=== PATIENT | female | born 1950 | race Caucasian/White ===

== ENCOUNTER 2023-05-13 15:18 | Outpatient (OUT) | payer MEDICARE, SELFPAY ==
[2023-05-13 09:12] LABS: Erythrocyte Sedimentation Rate 38 mm/hr (<=30)
== END 2023-05-13 15:19 | disposition home or self-care (01) ==
LOC: LAB 05-23 15:18
PROVIDERS: PCP Internal Medicine; Visit Provider Internal Medicine Rheumatology
DX: M05.79 Rheumatoid arthritis with rheumatoid factor of multiple sites without organ or systems involvement (principal); Z79.899 Other long term (current) drug therapy
CPT/HCPCS: 36415; 85652

== ENCOUNTER 2023-09-19 12:37 | Outpatient (OUT) | payer MEDICARE, OTHER, SELFPAY ==
[2023-09-19 13:04] LABS: Erythrocyte Sedimentation Rate 21 mm/hr (<=30)
== END 2023-09-19 12:38 | disposition home or self-care (01) ==
LOC: LAB 12:42
PROVIDERS: PCP Internal Medicine; Visit Provider Internal Medicine Rheumatology
DX: M05.79 Rheumatoid arthritis with rheumatoid factor of multiple sites without organ or systems involvement (principal); Z79.899 Other long term (current) drug therapy
CPT/HCPCS: 36415; 85652

== ENCOUNTER 2023-12-01 08:42 | Outpatient (OUT) | payer MEDICARE, OTHER, SELFPAY ==
--- OUTSIDE RECORDS SUMMARY | 2023-12-01 08:46 | XMS_ITS | CCD ---
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 Name Role Phone Juno Mcfadden II Primary Care Provider Mark TINAJERO, PhD, Guero Unavailable Patito JACINTO, Radha Unavailable Unavailable Dejuan Hernandez Unavailable ORALIA, DR MOTA Admitting Unavailable BARTON, DR MOTA Attending Unavailable MCFADDEN, DR NICHOLSON Primary Care Unavailable MISC, DR BONNER Consulting Unavailable KARASIK ., DR JONES Admitting Unavailabl e KARASIK ., DR JONES Attending Unavailabl e MCFADDEN, DR NICHOLSON Primary Care Unavailable KARASIK ., DR JONES Consulting Unavailabl e BARTON, DR MOTA Admitting Unavailable BARTON, DR MOTA Attending Unavailable MCFADDEN, DR NICHOLSON Primary Care Unavailable MISC, DR BONNER Consulting Unavailable BOGDAN, DR NICHOLSON Admitting Unavailable BOGDAN, DR NICHOLSON Attending Unavailable BOGDAN, DR NICHOLSON Primary Care Unavailable BOGDAN, DR NICHOLSON Consulting Unavailable KARASIK ., DR JONES Consulting Unavailabl e ZIEBMAGAN, DR KINGA Olivera Consulting Unavailable KARASIK ., DR JONES Admitting Unavailabl e KARASIK ., DR JONES Attending Unavailabl e BOGDAN, DR NICHOLSON Primary Care Unavailable KARASIK ., DR JONES Consulting Unavailabl e MISC, DR BONNER Admitting Unavailable MISC, DR BONNER Attending Unavailable BOGDAN, DR NICHOLSON Primary Care Unavailable MISC, DR BONNER Consulting Unavailable Juno Mcfadden II Primary Care Provider [phone] Mark TINAJERO, PhD, Guero Unavailable Patito JACINTO, Radha Unavailable Unavailable Bogdan ADAMS MD, Daniel B Primary Care Provider Franco TINAJERO, Lidia Unavailable Violet JACINTO, Jessica Unavailable MCFADDEN II, JUNO B Primary Care Unavailable GUERO FLORES Attending Unavailabl e MCFADDEN II, JUNO Martinez Primary Care Unavailable GUERO FLORES Referring Unavailabl e MCFADDEN II, JUNO Martinez Primary Care Unavailable MCFADDEN II, JUNO B Primary Care Unavailable GUERO FLORES Referring Unavailabl e MCFADDEN II, JUNO B Primary Care Unavailable MCFADDEN II, JUNO B Primary Care Unavailable GUERO FLORES Attending Unavailabl e MCFADDEN II, JUNO Martinez Primary Care Unavailable MCFADDEN II, JUNO Martinez Primary Care Unavailable MCFADDEN II, JUNO B Primary Care Unavailable MCFADDEN II, JUNO B Primary Care Unavailable MCFADDEN II, JUNO B Primary Care Unavailable Allergies Allergy Classification Reported Allergen(s) Allergy Type Date of Onset Reaction(s) Facility (9 sources) sulfaSALAzine; Translations: [SULFASALAZINE] Drug Allergy 06-29-2022 Rash [facility] (8 sources) Sulfonamides (Antibiotic); Translations: [SULFA (SULFONAMIDE ANTIBIOTICS)] Drug Allergy 08-17-2017 Unknown [facility] (1 source) Sulfonamides (Antibiotic) Drug allergy (disorder) [facility] Repository Medications Current Medications Medication Drug Class(es) Dates Sig (Normalized) Sig (Original) Calcium + D3 600-800 MG-UNIT (1 source) take 600-800 tablets by mouth once daily Calcium + D3 600-800 MG-UNIT 1 tablet with a meal Orally Once a day Active cycloSPORINE 25 mg oral capsule (20 sources) Calcineurin Inhibitor Immunosuppressant Start: 11-17-2022 End: 06-02-2024 take 1 capsule by mouth once daily cycloSPORINE (SANDIMMUNE) 25 mg capsule Take 1 capsule by mouth once daily. 90 capsule 2 09/06/2023 06/02/2024 Active Start: 11-17-2022 End: 06-06-2023 take 1 capsule by mouth twice daily in the evening cycloSPORINE (SANDIMMUNE) 100 mg capsule Take 1 capsule by mouth twice daily. 100 mg in the morning and 125 mg in the evening 180 capsule 5 03/08/2023 Active Start: 12-29-2021 End: 07-04-2022 take 1 capsule by mouth once daily cycloSPORINE (SANDIMMUNE) 25 mg capsule Indications: Large granular lymphocytic leukemia (HCC) Take 1 capsule by mouth once daily. Patient total dose is 125 mg daily. 90 capsule 2 07/04/2022 Active Start: 12-29-2021 End: 07-04-2022 take 1 capsule by mouth once daily cycloSPORINE (SANDIMMUNE) 100 mg capsule Indications: Large granular lymphocytic leukemia (HCC) Take 1 capsule by mouth once daily. Patient total dose is 125 mg daily. 90 capsule 2 07/04/2022 Active cycloSPORINE Act chip Comment on above: Take 1 capsule by mo ut once daily. Patient total dose is 125 mg daily. Take 1 capsule by mo ut twice daily. 100 mg in the morning and 125 mg in the evening Take 1 capsule by mo [facility] once daily. Magnesium (1 source) take 2 tablets by mouth once daily Magnesium 200 MG 2 tablets with a meal Orally Once a day Active Completed/Discontinued Medications Medication Drug Class(es) Dates Sig (Normalized) Sig (Original) acetaminophen 500 mg oral tablet (8 sources) take 1 tablet by mouth every eight hours as needed acetaminophen (TYLENOL) 500 mg tablet Take 500 mg by mouth three times daily as needed. 2-3 TABLETS PO DAILY NEEDED FOR PAIN 0 Active take 1 capsule by mouth every si x hours Acetaminophen 500 MG 1 capsule as needed Orally every 6 hrs Active Comment on above: Take 500 mg by mouth three times daily as needed. 2-3 TABLETS PO DAILY NEEDED FOR PAIN amLODIPine 2.5 mg oral tablet (2 sources) Dihydropyridine Calcium Channel Prosper Start: 12-19-19 take 1 tablet by mouth once daily amLODIPine (NORVASC) 2.5 mg tablet Take 2.5 mg by mouth once daily. 0 12/19/2022 Active Comment on above: Take 2.5 mg by mouth once daily. aspirin 81 mg delayed release oral tablet (8 sources) Platelet Aggregation Inhibitor, Nonsteroidal Anti-inflammatory Drug take 1 tablet by mouth once daily aspirin, enteric coated (ASPIRIN, ENTERIC COATED) 81 mg EC tablet Take 81 mg by mouth once daily. 0 Active Comment on above: Take 81 mg by mouth once daily. Calcium Carbonate / vitamin D3 (7 sources) CALCIUM CARBONATE/VITAMIN D3 (CALCIUM 600 + D ORAL) Take by mouth. 0 Active Comment on above: Take by mouth. ciprofloxacin 500 mg oral tablet (5 sources) Quinolone Antimicrobial Start: 10-27-20 End: 04-13-20 23 take 1 tablet by mouth three times weekly ciprofloxacin HCl (CIPRO) 500 mg tablet Take 1 tablet by mouth three times a week. Take Monday, Monday, and Monday 12 tablet 5 10/27/2022 Active Start: 11-15-2017 End: 10-27-2023 take 1 tablet by mouth twice daily ciprofloxacin HCl (CIPRO) 500 mg tablet Take 1 tablet by mouth twice daily. 60 tablet 0 11/15/2017 10/27/2023 Active take 1 tablet by mouth once Cipr ofloxacin HCl 500 MG 1 tablet Orally every Monday, Monday, and Monday Active Comment on above: Take 1 tablet by richard th twice daily. Take 1 tablet by richard th three times a week. Take Monday, Monday, and Monday COMPOUNDED PRESCRIPTION (7 sources) COMPOUNDED PRESCRIPTION Dmso 25% Colchicine 0.4% Baclofen 2% Pyroxidine 2% Apply to affected are 2-3 times daily as needed for pain 0 Active Comment on above: Dmso 25% Colchicine 0.4% Baclofen 2% Pyroxidine 2% Apply to affected are 2-3 times daily as needed for pain fluticasone propionate 0.05 mg/actuat metered dose nasal spray (8 sources) Corticosteroid take 2 spray(s) nasal route once daily fluticasone (FLONASE) 50 mcg/actuation nasal spray Use 2 Sprays in each nostril once daily. 0 Active take 1 spray(s) nasal route once daily Fluticasone Propionate 50 MCG/ACT 1 spray in each nostril Nasally Once a day Active Comment on above: Use 2 Sprays in each nostril once daily. hydroxychloroquine sulfate 200 mg oral tablet (8 sources) Antimalarial, Antirheumatic Agent take 1 tablet by mouth once daily hydrOXYchloroQUINE (PLAQUENIL) 200 mg tablet Take 200 mg by mouth once daily. 0 Active Comment on above: Take 200 mg by mouth once daily. levothyroxine sodium 0.075 mg oral tablet (8 sources) l-Thyroxine take 1 tablet by mouth once daily before breakfast levothyroxine (SYNTHROID) 75 mcg tablet Take 75 mcg by mouth daily before breakfast. 0 Active take 1 tablet by richard th once daily in the morning Levothyroxine Sodium 75 MCG 1 tablet in the morning on an empty stomach Orally Once a day Active Comment on above: Take 75 mcg by mouth daily before breakfast. liothyronine sodium 0.005 mg oral tablet (8 sources) l-Triiodothyronine take 1 tablet by mouth twice daily liothyronine (CYTOMEL) 5 mcg tablet Take 5 mcg by mouth twice daily. 0 Active take 1 tablet by richard th every twenty-four hours Liothyronine Sodium 5 MCG 1 tablet on an empty stomach Orally Once a day Active Comment on above: Take 5 mcg by mouth twice daily. loratadine 10 mg oral tablet (8 sources) take 1 tablet by mouth once daily loratadine (CLARITIN) 10 mg tablet Take 10 mg by mouth once daily. 0 Active Comment on above: Take 10 mg by mouth once daily. magnesium oxide 400 mg oral tablet (7 sources) take 1 tablet by mouth once daily magnesium oxide 400 mg magnesium tab Take 1 tablet by mouth once daily. 0 Active Comment on above: Take 1 tablet by richard th once daily. montelukast 10 mg oral tablet (8 sources) Leukotriene Receptor Antagonist take 1 tablet by mouth once daily at bedtime montelukast (SINGULAIR) 10 mg tablet Take 10 mg by mouth daily at bedtime. 0 Active Comment on above: Take 10 mg by mouth daily at bedtime. omeprazole 20 mg delayed release oral capsule (8 sources) Proton Pump Inhibitor take 1 capsule by mouth once daily omeprazole (PRILOSEC) 20 mg capsule Take 20 mg by mouth once daily. 0 Active take 1 capsule by mouth once bryon ly Omeprazole 40 MG 1 capsule 30 minutes before morning meal Orally Once a day Active Comment on above: Take 20 mg by mouth once daily. predniSONE 10 mg oral tablet (7 sources) Start: 02-27-2019 take 1 tablet by mouth once daily predniSONE (DELTASONE) 10 mg tablet Take 1 tablet by mouth once daily. 30 tablet 1 02/27/2019 Active Comment on above: Take 1 tablet by richard th once daily. propranolol hydrochloride 40 mg oral tablet (7 sources) beta-Adrenergic Prosper take 1 tablet by mouth twice daily propranolol (INDERAL) 40 mg tablet Take 40 mg by mouth twice daily. 0 Active Comment on above: Take 40 mg by mouth twice daily. Problems Active Problems Problem Classification Problem Date Documented Da te Episodic/Chronic Coagulation and hemorrhagic disorders (2 sources) Thrombocytopenic disorder; Translations: [Thrombocytopenia, unspecified] Onset: 3 09-12-2023 Chronic Diseases of white blood cells (9 sources) Neutropenia; Translations: [Neutropenia, unspecified] Onset: 7 10-03-2017 Chronic Immunizations and screening for infectious disease (1 source) Encounter for screening for human papillomavirus (HPV); Translations: [ENC SCREENING HUMAN PAPILLOMAVIRUS] Onset: 3 Episodic Leukemias (6 sources) Large granular lymphocytic leukemia; 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] Onset: 3 Chronic Menopausal disorders (1 source) Other primary ovarian failure; Translations: [OTHER PRIMARY OVARIAN FAILURE] Onset: 2 Chronic Other aftercare (1 source) Other intermission coordinator (current) drug therapy; Translations: [OTH INTERMEDIATE CURRENT DRUG THERAPY] Onset: 3 Episodic Other gastrointestinal disorders (1 source) Diarrhea, unspecified Episodic Other screening for suspected conditions (not mental disorders or infectious disease) (8 sources) Encounter for screening for malignant neoplasm of cervix; Translations: [Encounter for screening mammogram for malignant neoplasm of breast] Onset: 2 Episodic Residual codes; unclassified (1 source) Family history of malignant neoplasm of breast; Translations: [FAMILY HX MALIG NEOPLASM OF BREAST] Onset: 2 Episodic Residual codes; unclassified (1 source) Family history of malignant neoplasm of trachea, bronchus and lung; Translations: [FAM HX MALIG NEOPLSM TRACH BRON LNG] Onset: 2 Episodic Rheumatoid arthritis and related disease (4 sources) Rheumatoid arthritis with rheumatoid factor of multiple sites without organ or systems involvement; Translations: [RA W/RH FACTOR MX SITE NO ORGAN/SYS] Onset: 3 Chronic Viral infection (1 source) Herpesviral infection of urogenital system, unspecified; Translations: [HERPESVIRAL INF UROGENITAL SYS UNS] Onset: 2 Chronic Past or Other Problems Problem Classification Problem Date Documented Date Episodic/Chronic Other female genital disorders (4 sources) Other specified noninflammatory disorders of vagina; Translations: [OTH SPEC NONINFLAMMATORY D/O VAGINA] Onset: 07-27-2022 Episodic Results Test Name Value Interpretation Reference Range Facility CNPNon 11-29-2023 [facility] Telephone (HEMAMN) STEFAN LOYD ([id number]) 1950 F Date Time Provider Department 11/29/23 GUERO FLORES DAPHNE During your visit today, we recorded the following information about you: Maryjanejese Eamon Melendez 11/29/2023 10:33 AM Signed Patient needs orders put in for monthly lab draws. She goes to the [facility] in [place]. Jessica Lazo RN 11/30/2023 11:54 AM Signed Orders for monthly labs placed and routed to MD for signature. Jessica Lazo RN November 30, 2023 11:53 AM Allergies As of Date: 11/29/2023 Noted Allergy Reaction SULFA (SULFONAMIDE ANTIBIOTICS) 08/17/2017 16 - Unknown SULFASALAZINE 06/29/2022 2 - Rash Date Reviewed: 09/06/2023 Reviewed by: Yovany Haines, KARTIK - Fully Assessed Reason for Visit: Orders [681] Prescriptions as of 11/30/2023 - cycloSPORINE (SANDIMMUNE) 25 mg capsule Take 1 capsule by mouth once daily. - amLODIPine (NORVASC) 2.5 mg tablet Take 2.5 mg by mouth once daily. - cycloSPORINE (SANDIMMUNE) 100 mg capsule Take 1 capsule by mouth twice daily. 100 mg in the morning and 125 mg in the evening - ciprofloxacin HCl (CIPRO) 500 mg tablet Take 1 tablet by mouth three times a week. Take Monday, Monday, and Monday - hydrOXYchloroQUINE (PLAQUENIL) 200 mg tablet Take 200 mg by mouth once daily. - predniSONE (DELTASONE) 10 mg tablet Take 1 tablet by mouth once daily. - acetaminophen (TYLENOL) 500 mg tablet Take 500 mg by mouth three times daily as needed. 2-3 TABLETS PO DAILY NEEDED FOR PAIN - magnesium oxide 400 mg magnesium tab Take 1 tablet by mouth once daily. - COMPOUNDED PRESCRIPTION Dmso 25% Colchicine 0.4% Baclofen 2% Pyroxidine 2% Apply to affected are 2-3 times daily as needed for pain - ciprofloxacin HCl (CIPRO) 500 mg tablet Take 1 tablet by mouth twice daily. - omeprazole (PRILOSEC) 20 mg capsule Take 20 mg by mouth once daily. - propranolol (INDERAL) 40 mg tablet Take 40 mg by mouth twice daily. - levothyroxine (SYNTHROID) 75 mcg tablet Take 75 mcg by mouth daily before breakfast. - loratadine (CLARITIN) 10 mg tablet Take 10 mg by mouth once daily. - CALCIUM CARBONATE/VITAMIN D3 (CALCIUM 600 + D ORAL) Take by mouth. - fluticasone (FLONASE) 50 mcg/actuation nasal spray Use 2 Sprays in each nostril once daily. - liothyronine (CYTOMEL) 5 mcg tablet Take 5 mcg by mouth twice daily. - aspirin, enteric coated (ASPIRIN, ENTERIC COATED) 81 mg EC tablet Take 81 mg by mouth once daily. - montelukast (SINGULAIR) 10 mg tablet Take 10 mg by mouth daily at bedtime. Problem List As Of Date 11/29/2023 Noted Resolved Neutropenia (HCC) [D70.9] 10/03/2017 Thrombocytopenia (HCC) [D69.6] 09/12/2023 Encounter Status:Closed by EAMON WOOD on 11/29/23 Normal [facility] CBC W Auto Differential pane l (Bld)on 11-08-2023 Basophils (Bld) [#/Vol] 10*3/uL Normal <0.11 [facility] Comment on above: Order Comment: Speci men Type: BLOOD SPECIMEN Ordering Facility: [facility] Address: [address] [address] Performed By: #### 2 4323-8, 86466-7 #### [facility] [id number] [address] [place] [facility] Basophils/100 WBC (Bld) 0.4 % Normal [facility] Comment on above: Order Comment: Speci men Type: BLOOD SPECIMEN Ordering Facility: [facility] Address: [address] [address] Performed By: #### 2 4323-8, #### [facility] [id number] [address] [place] [address] [place] Differential cell count method Nom (Bld) Auto Normal [facility] Comment on above: Order Comment: Speci men Type: BLOOD SPECIMEN Ordering Facility: [facility] Address: [address] [place], [place] [address] Performed By: #### 2 4322-8, #### [facility] [id number] [address] [place] [address] [place] Eosinophils (Bld) [#/Vol] 0.11 10*3/uL Normal <0.46 [facility] Comment on above: Order Comment: Speci men Type: BLOOD SPECIMEN Ordering Facility: [facility] Address: [address] [place] [address] Performed By: #### 2 4323-06, #### [facility] [id number] [address] [place] [address] [place] Eosinophils/100 WBC (Bld) 2.3 % Normal [facility] Comment on above: Order Comment: Speci men Type: BLOOD SPECIMEN Ordering Facility: [facility] Address: [address] [place] [address] Performed By: #### 2 8, #### [facility] [id number] [address] [place] [address] [place] Erythrocyte distribution width (RBC) [Ratio] 12.2 % Normal 11.5-15.0 [facility] Comment on above: Order Comment: Speci men Type: BLOOD SPECIMEN Ordering Facility: [facility] Address: [address] Performed By: #### 2 8, #### [facility] [id number] [address] [place] [address] [place] Hematocrit (Bld) [Volume fraction] 39.8 % Normal 36.0-46.0 [facility] Comment on above: Order Comment: Speci men Type: BLOOD SPECIMEN Ordering Facility: [facility] Address: [address] [place] [address] Performed By: #### 2 4323-8, 44020-9 #### [facility] [id number] [address] [place] [address] [place] Hemoglobin (Bld) [Mass/Vol] 13.2 g/dL Normal 11.5-15.5 [facility] Comment on above: Order Comment: Speci men Type: BLOOD SPECIMEN Ordering Facility: [facility] Address: [address] [place] [address] Performed By: #### 2 4323-8, 48061-2 #### [facility] [id number] [address] [place] [address] [place] Immature granulocytes (Bld) [#/Vol] 10*3/uL Normal <0.10 [facility] Comment on above: Order Comment: Speci men Type: BLOOD SPECIMEN Ordering Facility: [facility] Address: [address] [place] [address] Performed By: #### 2 432-8, 57927-0 #### [facility] [id number] [address] [place] [address] [place] Immature granulocytes/100 WBC (Bld) 0.0 % Normal [facility] Comment on above: Order Comment: Speci men Type: BLOOD SPECIMEN Ordering Facility: [facility] Address: [address] [place] [address] Performed By: #### 2 4323-8, 63663-2 #### [facility] [id number] [address] [place] [address] [place] Lymphocytes (Bld) [#/Vol] 1.41 10*3/uL Normal 1.00-4.00 [facility] Comment on above: Order Comment: Speci men Type: BLOOD SPECIMEN Ordering Facility: [facility] Address: [address] [place], [place] [address] Performed By: #### 2 432-8, #### [facility] [id number] [address] [place] [address] [place] Lymphocytes/100 WBC (Bld) 29.4 % Normal [facility] Comment on above: Order Comment: Speci men Type: BLOOD SPECIMEN Ordering Facility: [facility] Address: [address] [place], [place] [address] Performed By: #### 2 4323-8, #### [facility] [id number] [address] [place] [address] [place] MCH (RBC) [Entitic mass] 29.3 pg Normal 26.0-34.0 [facility] Comment on above: Order Comment: Speci men Type: BLOOD SPECIMEN Ordering Facility: [facility] Address: [address] [place] [address] Performed By: #### 2 4323-8, #### [facility] [id number] [address] [place] [address] [place] MCHC (RBC) [Mass/Vol] 33.2 g/dL Normal 30.5-36.0 [facility] Comment on above: Order Comment: Speci men Type: BLOOD SPECIMEN Ordering Facility: [facility] Address: [address] [place], [place] [address] Performed By: #### 2 4323-8, #### [facility] [id number] [address] [place] [address] [place] MCV (RBC) [Entitic vol] 88.2 fL Normal 80.0-100.0 [facility] Comment on above: Order Comment: Speci men Type: BLOOD SPECIMEN Ordering Facility: [facility] Address: [address] Performed By: #### 2 4323-8, 04769-9 #### [facility] [id number] [address] [place] [address] [place] Monocytes (Bld) [#/Vol] 0.50 10*3/uL Normal <0.87 [facility] Comment on above: Order Comment: Speci men Type: BLOOD SPECIMEN Ordering Facility: [facility] Address: [address] Performed By: #### 2 432-8, #### [facility] [id number] [address] [place] [address] [place] Monocytes/100 WBC (Bld) 10.4 % Normal [facility] Comment on above: Order Comment: Speci men Type: BLOOD SPECIMEN Ordering Facility: [facility] Address: [address] [place], [place] [address] Performed By: #### 2 432-8, #### [facility] [id number] [address] [place] [address] [place] Neutrophils (Bld) [#/Vol] 2.75 10*3/uL Normal 1.45-7.50 [facility] Comment on above: Order Comment: Speci men Type: BLOOD SPECIMEN Ordering Facility: [facility] Address: [address] [place], [place] [address] Performed By: #### 2 4323-8, #### [facility] [id number] [address] [place] [address] [place] Neutrophils/100 WBC (Bld) 57.5 % Normal [facility] Comment on above: Order Comment: Speci men Type: BLOOD SPECIMEN Ordering Facility: [facility] Address: [address] [place], [place] [address] Performed By: #### 2 4323-8, 40455-9 #### [facility] [id number] [address] [place] [address] [place] Nucleated RBC (Bld) [#/Vol] 10*3/uL Normal <0.01 [facility] Comment on above: Order Comment: Speci men Type: BLOOD SPECIMEN Ordering Facility: [facility] Address: [address] [place], [place] [address] Performed By: #### 2 4323-8, #### [facility] [id number] [address] [place] [address] [place] Nucleated RBC/100 WBC (Bld) [Ratio] 0.0 /100 WBC Normal [facility] Comment on above: Order Comment: Speci men Type: BLOOD SPECIMEN Ordering Facility: [facility] Address: [address] [place] [address] Performed By: #### 2 4323-8, #### [facility] [id number] [address] [place] [address] [place] Platelet mean volume (Bld) [Entitic vol] 9.2 fL Normal 9.0-12.7 [facility] Comment on above: Order Comment: Speci men Type: BLOOD SPECIMEN Ordering Facility: [facility] Address: [address] [place], [place] [address] Performed By: #### 2 4323-8, #### [facility] [id number] [address] [place] [address] [place] Platelets (Bld) [#/Vol] 203 10*3/uL Normal 150-400 [facility] Comment on above: Order Comment: Speci men Type: BLOOD SPECIMEN Ordering Facility: [facility] Address: [address] [place], [place] [address] Performed By: #### 2 4323-8, 68690-3 #### [facility] [id number] [address] [place] [address] [place] RBC (Bld) [#/Vol] 4.51 10*6/uL Normal 3.90-5.20 [facility] Comment on above: Order Comment: Speci men Type: BLOOD SPECIMEN Ordering Facility: [facility] Address: [address] [place] [address] Performed By: #### 2 4323-8, 27621-0 #### [facility] CLIA [id number] [address] [place] [address] [place] WBC (Bld) [#/Vol] 4.79 10*3/uL Normal 3.70-11.00 [facility] Comment on above: Order Comment: Speci men Type: BLOOD SPECIMEN Ordering Facility: [facility] Address: [address] [place] [address] Performed By: #### 2 4323-8, 21542-9 #### [facility] CLIA [id number] [address] [place] [address] [place] CBC W Auto Differential pane l (Bld)on 10-06-2023 Basophils (Bld) [#/Vol] 10*3/uL Normal <0.11 [facility] Comment on above: Order Comment: Speci men Type: BLOOD SPECIMEN Ordering Facility: [facility] Address: [address] [place] [address] Performed By: #### 5 7021-8, 32296-8 #### [facility] CLIA [id number] [address] [place] [address] 90204 Basophils/100 WBC (Bld) 0.5 % Normal [facility] Comment on above: Order Comment: Speci men Type: BLOOD SPECIMEN Ordering Facility: [facility] Address: [address] [place], [place] [address] Performed By: #### 5 7021-8, 01002-5 #### [facility] CLIA [id number] [address] [place] [address] 30069 Differential cell count method Nom (Bld) Auto Normal [facility] Comment on above: Order Comment: Speci men Type: BLOOD SPECIMEN Ordering Facility: [facility] Address: [address] [address] Performed By: #### 5 7021-8, 79948-8 #### [facility] CLIA [id number] [address] [place] [address] 75200 Eosinophils (Bld) [#/Vol] 0.10 10*3/uL Normal <0.46 [facility] Comment on above: Order Comment: Speci men Type: BLOOD SPECIMEN Ordering Facility: [facility] Address: [address] [address] Performed By: #### 5 7021-8, 23408-5 #### [facility] CLIA [id number] [address] [place] [address] 01353 Eosinophils/100 WBC (Bld) 2.7 % Normal [facility] Comment on above: Order Comment: Speci men Type: BLOOD SPECIMEN Ordering Facility: [facility] Address: [address] [address] Performed By: #### 5 7021-8, 90702-9 #### [facility] CLIA [id number] [address] [place] [address]39[address] Erythrocyte distribution width (RBC) [Ratio] 12.5 % Normal 11.5-15.0 [facility] Comment on above: Order Comment: Speci men Type: BLOOD SPECIMEN Ordering Facility: [facility] Address: [address] Performed By: #### 5 7021-8, 03683-2 #### [facility] CLIA [id number] [address] [place] [address] 62247 Hematocrit (Bld) [Volume fraction] 37.3 % Normal 36.0-46.0 [facility] Comment on above: Order Comment: Speci men Type: BLOOD SPECIMEN Ordering Facility: [facility] Address: [address] Performed By: #### 5 7021-8, 39011-8 #### [facility] CLIA [id number] [address] [place] [address] 87618 Hemoglobin (Bld) [Mass/Vol] 12.5 g/dL Normal 11.5-15.5 [facility] Comment on above: Order Comment: Speci men Type: BLOOD SPECIMEN Ordering Facility: [facility] Address: [address] [place] [address] Performed By: #### 5 7021-8, 88418-8 #### [facility] CLIA [id number] [address] [place] [address] 78884 Immature granulocytes (Bld) [#/Vol] 0.03 10*3/uL Normal <0.10 [facility] Comment on above: Order Comment: Speci men Type: BLOOD SPECIMEN Ordering Facility: [facility] Address: [address] [place] [address] Performed By: #### 5 7021-8, 38991-1 #### [facility] CLIA [id number] [address] [place] [address] 85777 Immature granulocytes/100 WBC (Bld) 0.8 % Normal [facility] Comment on above: Order Comment: Speci men Type: BLOOD SPECIMEN Ordering Facility: [facility] Address: [address] [place] [address] Performed By: #### 5 7021-8, 52623-8 #### [facility] CLIA [id number] [address] [place] [address] 47668 Lymphocytes (Bld) [#/Vol] 1.46 10*3/uL Normal 1.00-4.00 [facility] Comment on above: Order Comment: Speci men Type: BLOOD SPECIMEN Ordering Facility: [facility] Address: [address] [place] [address] Performed By: #### 5 7021-8, 78637-3 #### [facility] CLIA [id number] [address] [place] [address] 56253 Lymphocytes/100 WBC (Bld) 38.8 % Normal [facility] Comment on above: Order Comment: Speci men Type: BLOOD SPECIMEN Ordering Facility: [facility] Address: [address] [address] Performed By: #### 5 7021-8, 83039-3 #### [facility] CLIA [id number] [address] [place] [address] 96169 MCH (RBC) [Entitic mass] 29.4 pg Normal 26.0-34.0 [facility] Comment on above: Order Comment: Speci men Type: BLOOD SPECIMEN Ordering Facility: [facility] Address: [address] [address] Performed By: #### 5 7021-8, 60976-2 #### [facility] CLIA [id number] [address] [place] [address] 26842 MCHC (RBC) [Mass/Vol] 33.5 g/dL Normal 30.5-36.0 [facility] Comment on above: Order Comment: Speci men Type: BLOOD SPECIMEN Ordering Facility: [facility] Address: [address] [address] Performed By: #### 5 7021-8, 31272-3 #### [facility] CLIA [id number] [address] [place] [address] 28821 MCV (RBC) [Entitic vol] 87.8 fL Normal 80.0-100.0 [facility] Comment on above: Order Comment: Speci men Type: BLOOD SPECIMEN Ordering Facility: [facility] Address: [address] Performed By: #### 5 7021-8, 76258-3 #### [facility] CLIA [id number] [address] [place] [address] 55856 Monocytes (Bld) [#/Vol] 0.45 10*3/uL Normal <0.87 [facility] Comment on above: Order Comment: Speci men Type: BLOOD SPECIMEN Ordering Facility: [facility] Address: [address] [place], [place] [address] Performed By: #### 5 7021-8, 47348-3 #### [facility] CLIA [id number] [address] [place] [address] 22862 Monocytes/100 WBC (Bld) 12.0 % Normal [facility] Comment on above: Order Comment: Speci men Type: BLOOD SPECIMEN Ordering Facility: [facility] Address: [address] Performed By: #### 5 7021-8, 39305-1 #### [facility] CLIA [id number] [address] [place] [address] 52234 Neutrophils (Bld) [#/Vol] 1.70 10*3/uL Normal 1.45-7.50 [facility] Comment on above: Order Comment: Speci men Type: BLOOD SPECIMEN Ordering Facility: [facility] Address: [address] [address] Performed By: #### 5 7021-8, 46608-4 #### [facility] CLIA [id number] [address] [place] [address] 28111 Neutrophils/100 WBC (Bld) 45.2 % Normal [facility] Comment on above: Order Comment: Speci men Type: BLOOD SPECIMEN Ordering Facility: [facility] Address: [address] Performed By: #### 5 7021-8, 99423-7 #### [facility] CLIA [id number] [address] [place] [address] 37991 Nucleated RBC (Bld) [#/Vol] 10*3/uL Normal <0.01 [facility] Comment on above: Order Comment: Speci men Type: BLOOD SPECIMEN Ordering Facility: [facility] Address: [address] Performed By: #### 5 7021-8, 68947-0 #### [facility] CLIA [id number] [address] [place] [address] 16786 Nucleated RBC/100 WBC (Bld) [Ratio] 0.0 /100 WBC Normal [facility] Comment on above: Order Comment: Speci men Type: BLOOD SPECIMEN Ordering Facility: [facility] Address: [address] [address] Performed By: #### 5 7021-8, 74367-8 #### [facility] CLIA [id number] [address] [place] [address] 71789 Platelet mean volume (Bld) [Entitic vol] 9.2 fL Normal 9.0-12.7 [facility] Comment on above: Order Comment: Speci men Type: BLOOD SPECIMEN Ordering Facility: [facility] Address: [address] [place] [address] Performed By: #### 5 7021-8, 28207-4 #### [facility] CLIA [id number] [address] [place] [address] 04544 Platelets (Bld) [#/Vol] 190 10*3/uL Normal 150-400 [facility] Comment on above: Order Comment: Speci men Type: BLOOD SPECIMEN Ordering Facility: [facility] Address: [address] [place] [address] Performed By: #### 5 7021-8, 67203-2 #### [facility] CLIA [id number] [address] [place] [address] 32834 RBC (Bld) [#/Vol] 4.25 10*6/uL Normal 3.90-5.20 [facility] Comment on above: Order Comment: Speci men Type: BLOOD SPECIMEN Ordering Facility: [facility] Address: [address] [place] [address] Performed By: #### 5 7021-8, 91391-9 #### [facility] CLIA [id number] [address] [place] [address] 83792 WBC (Bld) [#/Vol] 3.76 10*3/uL Normal 3.70-11.00 [facility] Comment on above: Order Comment: Speci men Type: BLOOD SPECIMEN Ordering Facility: [facility] Address: [place] [address] Performed By: #### 5 7021-8, 62020-7 #### [facility] CLIA [id number] [address] [place] [address] 91153 CYTOKINE PANEL 13, SERUMon 1 11-09-2022 Interferon gamma [Mass/Vol] <4.2 <=4.2 pg/mL [facility] Interleukin 1 beta [Mass/Vol] <6.5 <=6.7 pg/mL [facility] Interleukin 10 [Mass/Vol] 5.7 pg/mL High <=2.8 pg/[facility] Interleukin 12 [Mass/Vol] <1.9 <=1.9 pg/mL [facility] Interleukin 13 [Mass/Vol] 2.3 pg/mL <=2.3 pg/mL [facility] Interleukin 17A [Mass/Vol] <1.4 <=1.4 pg/mL [facility] Interleukin 2 [Mass/Vol] <2.1 <=2.1 pg/mL [facility] Interleukin 4 [Mass/Vol] <2.2 <=2.2 pg/mL [facility] Interleukin 5 <2.1 <=2.1 pg/mL [facility] Interleukin 6 [Mass/Vol] <2.0 <=2.0 pg/mL [facility] Interleukin 8 [Mass/Vol] <3.0 <=3.0 pg/mL [facility] Interleukin-2 Receptor 711.1 pg/mL 175.3 - 858.2 pg/mL [facility] Tumor necrosis factor.alpha [Mass/Vol] 4.6 pg/mL <=7.2 pg/mL [facility] CBC W Auto Differential pane l (Bld)on 09-06-2023 Basophils (Bld) [#/Vol] <0.11 k/uL [facility] Basophils/100 WBC (Bld) 0.3 % [facility] Differential cell count method Nom (Bld) Auto [facility] Eosinophils (Bld) [#/Vol] 0.05 10*3/uL <0.46 k/uL [facility] Eosinophils/100 WBC (Bld) 1.3 % [facility] Erythrocyte distribution width (RBC) [Ratio] 12.8 % 11.5 - 15.0 % [facility] Hematocrit (Bld) [Volume fraction] 38.9 % 36.0 - 46.0 % [facility] Hemoglobin (Bld) [Mass/Vol] 12.9 g/dL 11.5 - 15.5 g/dL [facility] Immature granulocytes (Bld) [#/Vol] 0.04 10*3/uL <0.10 k/uL [facility] Immature granulocytes/100 WBC (Bld) 1.1 % [facility] Lymphocytes (Bld) [#/Vol] 1.27 10*3/uL 1.00 - 4.00 k/uL [facility] Lymphocytes/100 WBC (Bld) 33.7 % [facility] MCH (RBC) [Entitic mass] 28.9 pg 26.0 - 34.0 pg [facility] MCHC (RBC) [Mass/Vol] 33.2 g/dL 30.5 - 36.0 g/dL [facility] MCV (RBC) [Entitic vol] 87.2 fL 80.0 - 100.0 fL [facility] Monocytes (Bld) [#/Vol] 0.39 10*3/uL <0.87 k/uL [facility] Monocytes/100 WBC (Bld) 10.3 % [facility] Neutrophils (Bld) [#/Vol] 2.01 10*3/uL 1.45 - 7.50 k/uL [facility] Neutrophils/100 WBC (Bld) 53.3 % [facility] Nucleated RBC (Bld) [#/Vol] <0.01 k/uL [facility] Nucleated RBC/100 WBC (Bld) [Ratio] 0.0 /100 WBC [facility] Platelet mean volume (Bld) [Entitic vol] 9.4 fL 9.0 - 12.7 fL [facility] Platelets (Bld) [#/Vol] 210 10*3/uL 150 - 400 k/uL [facility] RBC (Bld) [#/Vol] 4.46 10*6/uL 3.90 - 5.2 0 m/uL [facility] WBC (Bld) [#/Vol] 3.77 10*3/uL 3.70 - 11. 00 k/uL [facility] Basophils (Bld) [#/Vol] 10*3/uL Normal <0.11 [facility] Comment on above: Order Comment: Speci men Type: BLOOD SPECIMEN Ordering Facility[facility] Address: [address] [place], [place] [address] Performed By: #### 2 432-8, #### [facility] [id number] [address] [place] [address] [place] Basophils/100 WBC (Bld) 0.3 % Normal [facility] Comment on above: Order Comment: Speci men Type: BLOOD SPECIMEN Ordering Facility: [facility] Address: [address] [place] [address] Performed By: #### 2 8, #### [facility] [id number] [place] [address] [place] Differential cell count method Nom (Bld) Auto Normal [facility] Comment on above: Order Comment: Speci men Type: BLOOD SPECIMEN Ordering Facility: [facility] Address: [address] [place], [place] [address] Performed By: #### 2 8, #### [facility] [id number] [address] [place] [address] [place] Eosinophils (Bld) [#/Vol] 0.05 10*3/uL Normal <0.46 [facility] Comment on above: Order Comment: Speci men Type: BLOOD SPECIMEN Ordering Facility: [facility] Address: [address] [place], [place] [address] Performed By: #### 2 4322-8, #### [facility] [id number] [address] [place] [address] [place] Eosinophils/100 WBC (Bld) 1.3 % Normal [facility] Comment on above: Order Comment: Speci men Type: BLOOD SPECIMEN Ordering Facility: [facility] Address: [address] [place], [place] [address] Performed By: #### 2 -8, #### [facility] [id number] [address] [place] [address] [place] Erythrocyte distribution width (RBC) [Ratio] 12.8 % Normal 11.5-15.0 [facility] Comment on above: Order Comment: Speci men Type: BLOOD SPECIMEN Ordering Facility: [facility] Address: [address] [place], [place] [address] Performed By: #### 2 4322-8, #### [facility] [id number] [address] [place] [address] [place] Hematocrit (Bld) [Volume fraction] 38.9 % Normal 36.0-46.0 [facility] Comment on above: Order Comment: Speci men Type: BLOOD SPECIMEN Ordering Facility: [facility] Address: [address] [place], [place] [address] Performed By: #### 2 8, #### [facility] [id number] [address] [place] [address] [place] Hemoglobin (Bld) [Mass/Vol] 12.9 g/dL Normal 11.5-15.5 [facility] Comment on above: Order Comment: Speci men Type: BLOOD SPECIMEN Ordering Facility: [facility] Address: [address] [place], [place] [address] Performed By: #### 2 8, #### [facility] [id number] [address] [place] [address] [place] Immature granulocytes (Bld) [#/Vol] 0.04 10*3/uL Normal <0.10 [facility] Comment on above: Order Comment: Speci men Type: BLOOD SPECIMEN Ordering Facility: [facility] Address: [address] [place], [place] [address] Performed By: #### 2 4323-8, #### [facility] [id number] [address] [place] [address] [place] Immature granulocytes/100 WBC (Bld) 1.1 % Normal [facility] Comment on above: Order Comment: Speci men Type: BLOOD SPECIMEN Ordering Facility: [facility] Address: [address] [place] [address] Performed By: #### 2 4323-8, #### [facility] CLIA [id number] [address] [place] [address] [place] Lymphocytes (Bld) [#/Vol] 1.27 10*3/uL Normal 1.00-4.00 [facility] Comment on above: Order Comment: Speci men Type: BLOOD SPECIMEN Ordering [facility] Address: [address] [place] [address] Performed By: #### 2 4323-8, #### [facility] [place] [id number] [address] [place] [address] [place] Lymphocytes/100 WBC (Bld) 33.7 % Normal [facility] Comment on above: Order Comment: Speci men Type: BLOOD SPECIMEN Ordering Facility[facility] Address: [address] [place] [address] Performed By: #### 2 432-8, #### [facility] [place] [id number] [address] [place] [address] [place] MCH (RBC) [Entitic mass] 28.9 pg Normal 26.0-34.0 [facility] Comment on above: Order Comment: Speci men Type: BLOOD SPECIMEN Ordering Facility: [facility] Address: [address] [place] [address] Performed By: #### 2 432-8, 13478-7 #### [facility] [place] [id number] [address] [place] [address] [place] MCHC (RBC) [Mass/Vol] 33.2 g/dL Normal 30.5-36.0 [facility] Comment on above: Order Comment: Speci men Type: BLOOD SPECIMEN Ordering Facility: [facility] Address: [address] [place], [place] [address] Performed By: #### 2 4322-8, #### [facility] [id number] [address] [place] [address] [place] MCV (RBC) [Entitic vol] 87.2 fL Normal 80.0-100.0 [facility] Comment on above: Order Comment: Speci men Type: BLOOD SPECIMEN Ordering Facility: [facility] Address: [address] [place], [place] [address] Performed By: #### 2 4322-8, #### [facility] [id number] [address] [place] [address] [place] Monocytes (Bld) [#/Vol] 0.39 10*3/uL Normal <0.87 [facility] Comment on above: Order Comment: Speci men Type: BLOOD SPECIMEN Ordering Facility: [facility] Address: [address] [place], [place] [address] Performed By: #### 2 8, #### [facility] [id number] [address] [place] [address] [place] Monocytes/100 WBC (Bld) 10.3 % Normal [facility] Comment on above: Order Comment: Speci men Type: BLOOD SPECIMEN Ordering Facility: [facility] Address: [address] [place], [place] [address] Performed By: #### 2 8, #### [facility] [id number] [address] [place] [address] [place] Neutrophils (Bld) [#/Vol] 2.01 10*3/uL Normal 1.45-7.50 [facility] Comment on above: Order Comment: Speci men Type: BLOOD SPECIMEN Ordering Facility: [facility] Address: [address] Performed By: #### 2 4323-8, #### [facility] [id number] [address] [place] [address] Neutrophils/100 WBC (Bld) 53.3 % Normal [facility] Comment on above: Order Comment: Speci men Type: BLOOD SPECIMEN Ordering Facility: [facility] Address: [address] [place], [place] [address] Performed By: #### 2 4323-8, #### [facility] [id number] [address] [place] [address] [place] Nucleated RBC (Bld) [#/Vol] 10*3/uL Normal <0.01 [facility] Comment on above: Order Comment: Speci men Type: BLOOD SPECIMEN Ordering Facility: [facility] Address: [address] [place], [place] [address] Performed By: #### 2 4323-8, #### [facility] [id number] [address] [place] [address] [place] Nucleated RBC/100 WBC (Bld) [Ratio] 0.0 /100 WBC Normal [facility] Comment on above: Order Comment: Speci men Type: BLOOD SPECIMEN Ordering Facility: [facility] Address: [address] [place], [place] [address] Performed By: #### 2 4323-8, #### [facility] [id number] [address] [place] [address] [place] Platelet mean volume (Bld) [Entitic vol] 9.4 fL Normal 9.0-12.7 [facility] Comment on above: Order Comment: Speci men Type: BLOOD SPECIMEN Ordering Facility: [facility] Address: [address] [place], [place] [address] Performed By: #### 2 4323-8, #### [facility] [id number] [address] [place] [address] [place] Platelets (Bld) [#/Vol] 210 10*3/uL Normal 150-400 [facility] Comment on above: Order Comment: Speci men Type: BLOOD SPECIMEN Ordering Facility: [facility] Address: [address] [place] [address] Performed By: #### 2 4323-8, #### [facility] [id number] [address] [place] [address] [place] RBC (Bld) [#/Vol] 4.46 10*6/uL Normal 3.90-5.20 [facility] Comment on above: Order Comment: Speci men Type: BLOOD SPECIMEN Ordering Facility: [facility] Address: [address] [place] [address] Performed By: #### 2 4323-8, #### [facility] [id number] [address] [place] [address] [place] WBC (Bld) [#/Vol] 3.77 10*3/uL Normal 3.70-11.00 [facility] Comment on above: Order Comment: Speci men Type: BLOOD SPECIMEN Ordering Facility: [facility] Address: [address] [place] [address] Performed By: #### 2 4323-8, #### [facility] [id number] [address] [place] [address] [place] CNOVSPon 09-06-2023 CNOVSP Visit (SP) Office ([facility]) COSMESTEFAN CARCAMO ([id number]) 1950 F Date Time Provider Department 09/06/23 11:30 AM GUERO FLORES During your visit today, we recorded the following information about you: Temperature Pulse Respiration Blood pressure 97.7 degrees 68/minute 18/minute 139/68 Weight 89.5 kg Yovany Haines PCNA 09/06/2023 11:35 AM Signed Additional intake questions: Has the patient had fever, nausea, vomiting, diarrhea, constipation, fatigue for > 1 week? No Does the patient have a decreased appetite? No Does patient have any new or increased numbness or tingling of extremities? No Is patient interested in fertility information? No Does patient need any prescription refills? No Does patient have an advanced directive in place? Electronically Signed By: KARTIK Vanegas Arooj, MD 09/12/2023 3:13 PM Signed [facility]COLOGY [facility]IC VISIT Chief Complaint: follow up of T-LGL HPI: This is a pleasant 72-year-old female with past medical history of rheumatoid arthritis who was on methotrexate and Plaquenil. She was on methotrexate from 2013 to July 2017 and plaquenil from [id number]. Before that she was on sulfasalazine and when necessary steroids. Patient stated that she was initially diagnosed with rheumatoid arthritis in 1991 and had multiple therapies are mentioned below. She was doing well on methotrexate with her symptoms well controlled. In summer it was noticed that her WBC and ANC were trending down. This prompted a follow-up with the office machines wirer. Initially it was thought to be secondary to methotrexate. The medication was stopped. 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 Interval history: Patient presents for routine follow up. Denies any complaints at this visit. BP well controlled on propranolol and amlodipine. Review of systems: 10-points systems reviewed and were negative except for what was mentioned in the history of present illness. Examination; Vital signs: 09/06/23 1134 BP: 139/68 Pulse: 68 Resp: 18 Temp: 36.5 ?C (97.7 ?F) TempSrc: Temporal SpO2: 97% (RA) Weight: 89.5 kg (197 lb 5 oz) General appearance: Well appearing, alert, in no acute distress Skin: no rash Lungs: breathing comfortably on room air. Lungs clear to auscultation Heart: RRR without murmur, or gallop. Abdomen: Abdomen soft, non-tender. No masses, organomegaly Extremities: No edema Musculoskeletal: Normal range of motion. No joint swelling, or deformity. Neuro: non focal LABS: Component Ref Range AND Units 10:25 AM 2 mo ago 4 mo ago 5 mo ago 6 mo ago 7 mo ago 8 mo ago WBC 3.70 - 11.00 k/uL 3.77 3.63 Low 3.23 Low 2.85 Low 2.62 Low 2.85 Low 2.95 Low RBC 3.90 - 5.20 m/uL 4.46 4.30 4.35 4.46 4.48 4.57 4.45 Hemoglobin 11.5 - 15.5 g/dL 12.9 12.8 12.6 12.6 12.7 12.9 12.5 Hematocrit 36.0 - 46.0 % 38.9 37.1 36.8 38.0 38.1 38.5 37.2 MCV 80.0 - 100.0 fL 87.2 86.3 84.6 85.2 85.0 84.2 83.6 MCH 26.0 - 34.0 pg 28.9 29.8 29.0 28.3 28.3 28.2 28.1 MCHC 30.5 - 36.0 g/dL 33.2 34.5 34.2 33.2 33.3 33.5 33.6 RDW-CV 11.5 - 15.0 % 12.8 12.8 12.8 13.2 13.1 13.2 13.3 Platelet Count 150 - 400 k/uL 210 191 181 175 192 178 173 MPV 9.0 - 12.7 fL 9.4 9.1 8.7 Low 9.0 9.1 8.9 Low 8.9 Low Neutrophils % % 53.3 46.5 44.0 40.0 38.6 53.6 38.4 Abs Neut 1.45 - 7.50 k/uL 2.01 1.69 1.42 Low 1.14 Low 1.01 Low 1.53 1.13 Component Ref Range AND Units 10:25 AM 2 mo ago 4 mo ago 5 mo ago 6 mo ago 7 mo ago 8 mo ago Protein, Total 6.3 - 8.0 g/dL 7.7 7.3 7.5 7.4 7.3 7.4 7.2 Albumin 3.9 - 4.9 g/dL 4.4 4.4 4.3 4.3 4.2 4.2 4.2 Calcium, Total 8.5 - 10.2 mg/dL 9.5 9.4 9.6 9.9 9.4 9.7 9.6 Bilirubin, Total 0.2 - 1.3 mg/dL 0.7 0.5 0.6 0.6 0.6 0.7 0.6 Alkaline Phosphatase 34 - 123 U/L 89 95 99 79 76 76 76 AST 13 - 35 U/L 19 15 17 17 17 16 18 ALT 7 - 38 U/L 12 12 11 10 11 10 10 Glucose 74 - 99 mg/dL 99 97 CM 101 High CM 97 CM 90 CM 99 CM 99 CM Component Ref Range AND Units 10:25 AM (09/06/23) 6 mo ago (03/08/23) 9 mo ago (11/18/22) 1 yr ago (06/29/22) 1 yr ago (12/29/21) 2 yr ago (06/30/21) 2 yr ago (12/30/20) LD 135 - 214 U/L 198 220 High 242 High CM 201 303 High CM 212 246 High Component Ref Range AND Units 10:25 AM 2 mo ago 4 mo ago 5 mo ago 6 mo ago 7 mo ago 8 mo ago Retic % 0.4 - 2.0 % 1.4 1.4 1.6 1.6 1.5 1.2 1.6 Abs Retic 0.018 - 0.100 M/uL 0.062 0.058 0.069 0.069 0.068 0.055 0.071 0 Result Notes Component Ref Range AND Units 10:25 AM (09/06/23) 6 mo ago (03/08/23) 10 mo ago (10/26/22) 1 yr ago (08/25/22) 1 yr ago (06/29/22) 1 yr ago (12/29/21) Magnesium 1.7 - 2.3 mg/dL 1.9 1.8 2. (more content not included)... Normal [facility] CYTOKINE PANEL 13, SERUMon 1 11-06-2022 INTERFERON GAMMA <4.2 Normal <=4.2 [facility] Comment on above: Order Comment: Speci men Type: BLOOD SPECIMEN Ordering Facility: [facility] Address: [address] [address] Performed By: #### 5 7021-8, 54186-0 #### [facility] CLIA [id number] [address] [place] [address] 13095 INTERLEUKIN 1 BETA <6.5 Normal <=6.7 [facility] Comment on above: Order Comment: Speci men Type: BLOOD SPECIMEN Ordering Facility: [facility] Address: [address] [address] Performed By: #### 5 7021-8, 17998-3 #### [facility] CLIA [id number] [address] [place] [address] 21267 INTERLEUKIN 10 5.7 pg/mL High <=2.8 [facility] Comment on above: Order Comment: Speci men Type: BLOOD SPECIMEN Ordering Facility: [facility] Address: [address] [address] Performed By: #### 5 7021-8, 32242-8 #### [facility] CLIA [id number] [address] [place] [address] 40094 INTERLEUKIN 12 <1.9 Normal <=1.9 [facility] Comment on above: Order Comment: Speci men Type: BLOOD SPECIMEN Ordering Facility: [facility] Address: [address] [address] Performed By: #### 5 7021-8, 92440-5 #### [facility] CLIA [id number] [address] [place] [address] 50209 INTERLEUKIN 13 2.3 pg/mL Normal <=2.3 [facility] Comment on above: Order Comment: Speci men Type: BLOOD SPECIMEN Ordering Facility: [facility] Address: [address] [address] Performed By: #### 5 7021-8, 77644-0 #### [facility] CLIA [id number] [address] [place] [address] 71371 INTERLEUKIN 17 <1.4 Normal <=1.4 [facility] Comment on above: Order Comment: Speci men Type: BLOOD SPECIMEN Ordering Facility: [facility] Address: [address] [address] Performed By: #### 5 7021-8, 76806-1 #### [facility] CLIA [id number] [address] [place] [address] 39826 INTERLEUKIN 2 <2.1 Normal <=2.1 [facility] Comment on above: Order Comment: Speci men Type: BLOOD SPECIMEN Ordering Facility: [facility] Address: [address] [address] Performed By: #### 5 7021-8, 41645-6 #### [facility] CLIA [id number] [address] [place] [address] 52857 INTERLEUKIN 4 (INT4) <2.2 Normal <=2.2 [facility] Comment on above: Order Comment: Speci men Type: BLOOD SPECIMEN Ordering Facility: [facility] Address: [address] [address] Performed By: #### 5 7021-8, 77495-4 #### [facility] CLIA [id number] [address] [place] [address] 62566 INTERLEUKIN 5 <2.1 Normal <=2.1 [facility] Comment on above: Order Comment: Speci men Type: BLOOD SPECIMEN Ordering Facility: [facility] Address: [address] [address] Performed By: #### 5 7021-8, 79599-5 #### [facility] CLIA [id number] [address] [place] [address] 52889 INTERLEUKIN 6 <2.0 Normal <=2.0 [facility] Comment on above: Order Comment: Speci men Type: BLOOD SPECIMEN Ordering Facility: [facility] Address: [address] [place] [address] Performed By: #### 5 7021-8, 03744-6 #### [facility] CLIA [id number] [address] [place] [address] 08591 INTERLEUKIN 8 <3.0 Normal <=3.0 [facility] Comment on above: Order Comment: Speci men Type: BLOOD SPECIMEN Ordering Facility: [facility] Address: [address] [place] [address] Performed By: #### 5 7021-8, 81793-1 #### [facility] CLIA [id number] [address] [place] [address] 34896 INTERLEUKIN-2 RECEPTOR 711.1 pg/mL Normal 175.3-858.2 [facility] Comment on above: Order Comment: Speci men Type: BLOOD SPECIMEN Ordering Facility: [facility] Address: [address] [place] [address] Performed By: #### 5 7021-8, 78530-7 #### [facility] CLIA [id number] [address] [place] [address] 66335 TUMOR NECROSIS FACTOR - ALPHA 4.6 pg/mL Normal <=7.2 [facility] Comment on above: Order Comment: Speci men Type: BLOOD SPECIMEN Ordering Facility: [facility] Address: [address] [place] [address] Result Comment: INTE RPRETIVE INFORMATION: Cytokines Results are used to understand the pathophysiology of immune, infectious, or inflammatory disorders, or may be used for research purposes. This test was developed and its performance characteristics determined by [facility]. It has not been cleared or approved by the [place] Food and Drug Administration. This test was performed in a CLIA certified laboratory and is intended for clinical purposes. Performed By: [facility] [address] [place] [address] Accounts Officer: Yeison Bustamante MD, PhD [place] Number: [id number] Performed By: #### 5 7021-8, 36067-8 #### [facility] CLIA [id number] [address] [place] [address] Comprehensive metabolic 2000 panelon 09-06-2023 Albumin [Mass/Vol] 4.4 g/dL Normal 3.9-4.9 [facility] Comment on above: Order Comment: Speci men Type: BLOOD SPECIMEN Ordering Facility: [facility] Address: [address] [place] [address] Performed By: #### 2 4323-8, #### [facility] [place] [id number] [address] [place] [address] [place] ALP [Catalytic activity/Vol] 89 U/L Normal 34-123 [facility] Comment on above: Order Comment: Speci men Type: BLOOD SPECIMEN Ordering Facility: [facility] Address: [address] [place] [address] Performed By: #### 2 4323-8, #### [facility] CLIA [id number] [address] [place] [address] [place] ALT [Catalytic activity/Vol] 12 U/L Normal 7-38 [facility] Comment on above: Order Comment: Speci men Type: BLOOD SPECIMEN Ordering Facility: [facility] Address: [address] [address] Performed By: #### 2 4323-8, #### [facility] [place] [id number] [address] [place] [address] [place] Anion gap [Moles/Vol] 11 mmol/L Normal 9-18 [facility] Comment on above: Order Comment: Speci men Type: BLOOD SPECIMEN Ordering Facility: [facility] Address: [address] Performed By: #### 2 4323-8, #### [facility] [id number] [address] [place] [address] [place] AST [Catalytic activity/Vol] 19 U/L Normal 13-35 [facility] Comment on above: Order Comment: Speci men Type: BLOOD SPECIMEN Ordering Facility: [facility] Address: [address] Performed By: #### 2 4323-8, #### [facility] [id number] [address] [place] [address] [place] Bilirubin [Mass/Vol] 0.7 mg/dL Normal 0.2-1.3 [facility] Comment on above: Order Comment: Speci men Type: BLOOD SPECIMEN Ordering Facility: [facility] Address: [address] [place], [place] [address] Performed By: #### 2 432-8, #### [facility] [id number] [address] [place] [address] [place] Calcium [Mass/Vol] 9.5 mg/dL Normal 8.5-10.2 [facility] Comment on above: Order Comment: Speci men Type: BLOOD SPECIMEN Ordering Facility: [facility] Address: [address] [place], [place] [address] Performed By: #### 2 4323-8, #### [facility] [id number] [address] [place] [address] [place] Chloride [Moles/Vol] 102 mmol/L Normal 97-105 [facility] Comment on above: Order Comment: Speci men Type: BLOOD SPECIMEN Ordering Facility: [facility] Address: [address] Performed By: #### 2 4323-8, #### [facility] [id number] [facility] [place] [address] [place] CO2 [Moles/Vol] 26 mmol/L Normal 22-30 [facility] Comment on above: Order Comment: Speci men Type: BLOOD SPECIMEN Ordering Facility: [facility] Address: [address] [place] [address] Performed By: #### 2 4323-8, #### [facility] [id number] [address] [place] [address] Creatinine [Mass/Vol] 0.92 mg/dL Normal 0.58-0.96 [facility] Comment on above: Order Comment: Speci men Type: BLOOD SPECIMEN Ordering Facility: [facility] Address: [address] [place] [address] Performed By: #### 2 4323-8, #### [facility] [id number] [address] [place] [address] Creatinine and Glomerular filtration rate.predicted panel (S/P/Bld) 65 mL/min/1.73m??? Normal >=60 [facility] Comment on above: Order Comment: Speci men Type: BLOOD SPECIMEN Ordering Facility: [facility] Address: [address] [place] [address] Result Comment: Yessenia mated Glomerular Filtration Rate (eGFR) is calculated using the 2020 CKD-EPI creatinine equation. This equation utilizes serum creatinine, sex, and age as parameters. The creatinine assay has traceable calibration to isotope dilution-mass spectrometry. Refer to KDIGO guidelines for clinical interpretation. In patients with unstable renal function, e.g. those with acute kidney injury, the eGFR may not accurately reflect actual GFR. Performed By: #### 2 4323-8, #### [facility] [id number] [address] [place] [address] [place] Glucose [Mass/Vol] 99 mg/dL Normal 74-99 [facility] Comment on above: Order Comment: Speci men Type: BLOOD SPECIMEN Ordering Facility: [facility] Address: [address] [place], [place] [address] Result Comment: The [place] Diabetes Association (ADA) provides guidance for cutoff values for fasting glucose and random glucose. The ADA defines fasting as no caloric intake for at least 8 hours. Fasting plasma glucose results between 100 to 125 mg/dL indicate increased risk for diabetes (prediabetes). Fasting plasma glucose results greater than or equal to 126 mg/dL meet the criteria for diagnosis of diabetes. In the absence of unequivocal hyperglycemia, results should be confirmed by repeat testing. In a patient with classic symptoms of hyperglycemia or hyperglycemic crisis, random plasma glucose results greater than or equal to 200 mg/dL meet the criteria for diagnosis of diabetes. Reference: Standards of Medical Care in Diabetes 2016, [place] [employer] Association. Diabetes Care. 2016.39(Suppl 1). Performed By: #### 2 4323-8, #### [facility] [id number] [address] [place] [address] [place] Potassium [Moles/Vol] 4.5 mmol/L Normal 3.7-5.1 [facility] Comment on above: Order Comment: Yelitzai men Type: BLOOD SPECIMEN Ordering Facility: [facility] Address: [address] [place], [place] [address] Performed By: #### 2 4323-8, #### [facility] [id number] [address] [place] [address] [place] Protein [Mass/Vol] 7.7 g/dL Normal 6.3-8.0 [facility] Comment on above: Order Comment: Speci men Type: BLOOD SPECIMEN Ordering Facility: [facility] Address: [address] [place], [place] [id number] Performed By: #### 2 4322-, #### [facility] [id number] [address] [place] [address] [place] Sodium [Moles/Vol] 139 mmol/L Normal 136-144 [facility] Comment on above: Order Comment: Speci men Type: BLOOD SPECIMEN Ordering Facility: [facility] Address: [address] Performed By: #### 2 4323-8, 66240-0 #### [facility] [id number] [address] [place] [address] [place] Urea nitrogen [Mass/Vol] 20 mg/dL Normal 7-21 [facility] Comment on above: Order Comment: Speci men Type: BLOOD SPECIMEN Ordering Facility: [facility] Address: [address] [address] Performed By: #### 2 4323-8, 31388-8 #### [facility] [id number] [address] [place] [address] [place] Albumin [Mass/Vol] 4.4 g/dL 3.9 - 4.9 g/dL [facility] ALP [Catalytic activity/Vol] 89 U/L 34 - 123 U/L [facility] ALT [Catalytic activity/Vol] 12 U/L 7 - 38 U/L [facility] Anion gap [Moles/Vol] 11 mmol/L 9 - 18 mmol/L [facility] AST [Catalytic activity/Vol] 19 U/L 13 - 35 U/L [facility] Bilirubin [Mass/Vol] 0.7 mg/dL 0.2 - 1.3 mg/dL [facility] Calcium [Mass/Vol] 9.5 mg/dL 8.5 - 10. 2 mg/dL [facility] Chloride [Moles/Vol] 102 mmol/L 97 - 105 mmol/L [facility] CO2 [Moles/Vol] 26 mmol/L 22 - 30 mmol/L [facility] Creatinine [Mass/Vol] 0.92 mg/dL 0.58 - 0.96 mg/dL [facility] Estimated Glomerular Filtration Rate 65 mL/min/1.73m >=60 mL/min/1.73m [facility] Glucose [Mass/Vol] 99 mg/dL 74 - 99 mg/dL [facility] Potassium [Moles/Vol] 4.5 mmol/L 3.7 - 5.1 mmol/L [facility] Protein [Mass/Vol] 7.7 g/dL 6.3 - 8.0 g/dL [facility] Sodium [Moles/Vol] 139 mmol/L 136 - 144 mmol/L [facility] Urea nitrogen [Mass/Vol] 20 mg/dL 7 - 21 mg/dL [facility] LARGE GRANULAR LYMPH COUNTon 09-06-2023 ABSOLUTE LGL 0.42 k/uL Normal [facility] Comment on above: Order Comment: Speci men Type: BLOOD SPECIMEN Ordering Facility: [facility] Address: [address] [place] [address] Performed By: #### 2 4323-8, #### [facility] [id number] [address] [place] [address] [place] PERCENT LGL 33.0 % of Lymphocytes Normal [facility] Comment on above: Order Comment: Speci men Type: BLOOD SPECIMEN Ordering Facility: [facility] Address: [address] [place] [address] Performed By: #### 2 4323-8, #### [facility] [id number] [address] [place] [address] [place] LD LACTATE DEHYDROon 023 LDH [Catalytic activity/Vol] 198 U/L 135 - 214 U/L [facility] LDH SerPl-cCncon 09-06-2023 LDH [Catalytic activity/Vol] 198 U/L Normal 135-214 [facility] Comment on above: Order Comment: Speci men Type: BLOOD SPECIMEN Ordering Facility: [facility] Address: [address] [place] [address] Performed By: #### 2 4323-8, #### [facility] [id number] [address] [place] [address] [place] MAGNESIUM BLDon 09-06-2023 Magnesium [Mass/Vol] 1.9 mg/dL 1.7 - 2.3 mg/dL [facility] Magnesium SerPl-mCncon 09-06 Magnesium [Mass/Vol] 1.9 mg/dL Normal 1.7-2.3 [facility] Comment on above: Order Comment: Speci men Type: BLOOD SPECIMEN Ordering Facility: [facility] Address: [address] [place], [place] [address] Performed By: #### 2 4322-8, #### [facility] [place] [id number] [address] OF [facility] PATHOLOGIST INTERPRETATION C BC/DIFFon 09-06-2023 Milk Of Lime Slaker review Bhanu (Unsp spec) [Interp] Reviewed by Channing Styles MD Normal [facility] Comment on above: Order Comment: Speci men Type: BLOOD SPECIMEN Ordering Facility: [facility] Address: [address] [place] [address] Performed By: #### 2 8, #### [facility] [id number] [address] [place] [address] OF [facility] STAFF REVIEW, CBCDIF Normal [facility] Comment on above: Order Comment: Speci men Type: BLOOD SPECIMEN Ordering Facility: [facility] Address: [address] [place], [place] [address] Result Comment: Lymp hs include 33% large granular forms. Performed By: #### 2 8, #### [facility] [id number] [address] [place] RBC MORPHOLOGYon 09-06-2023 Platelets Estimate (Bld) [#/Vol] Adequate Normal [facility] Comment on above: Order Comment: Speci men Type: BLOOD SPECIMEN Ordering Facility: [facility] Address: [address] [place], [place] [address] Performed By: #### 2 4323-06, #### [facility] [place] [id number] [address] OF [facility] RBC morphology finding Nom (Bld) Reviewed: unremarkable Normal [facility] Comment on above: Order Comment: Speci men Type: BLOOD SPECIMEN Ordering Facility: [facility] Address: [address] Performed By: #### 2 4323-8, 00464-0 #### [facility] [id number] [address] [place] [address] [place] RETIC COUNTon 09-06-2023 Reticulocytes (Bld) [#/Vol] 0.22428 10*3/uL 0.018 - 0.100 M/uL [facility] Retics #on 09-06-2023 Reticulocytes (Bld) [#/Vol] 0.83065 10*3/uL Normal 0.018-0.100 [facility] Comment on above: Order Comment: Speci men Type: BLOOD SPECIMEN Ordering Facility: [facility] Address: [address] [place] [address] Performed By: #### 2 4323-8, #### [facility] [id number] [address] [place] [address] [place] Reticulocytes (Bld) [#/Vol]o n 09-06-2023 Reticulocytes/100 RBC (Bld) 1.4 % Normal 0.4-2.0 [facility] Comment on above: Order Comment: Speci men Type: BLOOD SPECIMEN Ordering Facility: [facility] Address: [address] [place] [address] Performed By: #### 2 4323-8, #### [facility] [id number] [address] [place] [address] [place] Reticulocytes/100 RBC (Bld) 1.4 % 0.4 - 2.0 % [facility] CBC W Auto Differential pane l (Bld)on 06-16-2023 Basophils (Bld) [#/Vol] 10*3/uL Normal <0.11 [facility] Comment on above: Order Comment: Speci men Type: BLOOD SPECIMEN Ordering Facility: [facility] Address: [address] [place], [place] [address] Performed By: #### 5 7021-8, 21844-3 #### [facility] CLIA [id number] [address] [place] [address] Basophils/100 WBC (Bld) 0.6 % Normal [facility] Comment on above: Order Comment: Speci men Type: BLOOD SPECIMEN Ordering Facility: [facility] Address: [address] [address] Performed By: #### 5 7021-8, 51769-4 #### [facility] CLIA [id number] [address] [place] [address] Differential cell count method Nom (Bld) Auto Normal [facility] Comment on above: Order Comment: Speci men Type: BLOOD SPECIMEN Ordering Facility: [facility] Address: [address] [address] Performed By: #### 5 7021-8, 78825-0 #### [facility] CLIA [id number] [address] [place] [address] Eosinophils (Bld) [#/Vol] 0.06 10*3/uL Normal <0.46 [facility] Comment on above: Order Comment: Speci men Type: BLOOD SPECIMEN Ordering Facility: [facility] Address: [address] [address] Performed By: #### 5 7021-8, 13841-1 #### [facility] CLIA [id number] [address] [place] [address] Eosinophils/100 WBC (Bld) 1.7 % Normal [facility] Comment on above: Order Comment: Speci men Type: BLOOD SPECIMEN Ordering Facility: [facility] Address: [address] [place] [address] Performed By: #### 5 7021-8, 44502-8 #### [facility] CLIA [id number] [address] [place] [address] Erythrocyte distribution width (RBC) [Ratio] 12.8 % Normal 11.5-15.0 [facility] Comment on above: Order Comment: Speci men Type: BLOOD SPECIMEN Ordering Facility: [facility] Address: [address] [address] Performed By: #### 5 7021-8, 66782-3 #### [facility] CLIA [id number] [address] [place] [address]75 Hematocrit (Bld) [Volume fraction] 37.1 % Normal 36.0-46.0 [facility] [facility] Comment on above: Order Comment: Speci men Type: BLOOD SPECIMEN Ordering Facility: [facility] Address: [address] Performed By: #### 5 7021-8, 48530-1 #### [facility] CLIA [id number] [address] [place] [address] 51944 Hemoglobin (Bld) [Mass/Vol] 12.8 g/dL Normal 11.5-15.5 [facility] Comment on above: Order Comment: Speci men Type: BLOOD SPECIMEN Ordering Facility: [facility] Address: [address] Performed By: #### 5 7021-8, 31623-1 #### [facility] CLIA [id number] [address] [place] [address] 50132 Immature granulocytes (Bld) [#/Vol] 10*3/uL Normal <0.10 [facility] Comment on above: Order Comment: Speci men Type: BLOOD SPECIMEN Ordering Facility: [facility] Address: [address] Performed By: #### 5 7021-8, 63876-2 #### [facility] CLIA [id number] [address] [place] [address] 02918 Immature granulocytes/100 WBC (Bld) 0.0 % Normal [facility] Comment on above: Order Comment: Speci men Type: BLOOD SPECIMEN Ordering Facility: [facility] Address: [address] Performed By: #### 5 7021-8, 65397-1 #### [facility] CLIA [id number] [address] [place] [address] 83358 Lymphocytes (Bld) [#/Vol] 1.42 10*3/uL Normal 1.00-4.00 [facility] Comment on above: Order Comment: Speci men Type: BLOOD SPECIMEN Ordering Facility: [facility] Address: [address] [place] [address] Performed By: #### 5 7021-8, 04255-9 #### [facility] CLIA [id number] [address] [place] [address] 35328 Lymphocytes/100 WBC (Bld) 39.1 % Normal [facility] Comment on above: Order Comment: Speci men Type: BLOOD SPECIMEN Ordering Facility: [facility] Address: [address] [place] [address] Performed By: #### 5 7021-8, 79600-5 #### [facility] CLIA [id number] [address] [place] [address] 81961 MCH (RBC) [Entitic mass] 29.8 pg Normal 26.0-34.0 [facility] Comment on above: Order Comment: Speci men Type: BLOOD SPECIMEN Ordering Facility: [facility] Address: [address] [place] [address] Performed By: #### 5 7021-8, 79937-2 #### [facility] CLIA [id number] [address] [place] [address] 68077 MCHC (RBC) [Mass/Vol] 34.5 g/dL Normal 30.5-36.0 [facility] Comment on above: Order Comment: Speci men Type: BLOOD SPECIMEN Ordering Facility: [facility] Address: [address] [place] [address] Performed By: #### 5 7021-8, 13450-8 #### [facility] CLIA [id number] [address] [place] [address] 56089 MCV (RBC) [Entitic vol] 86.3 fL Normal 80.0-100.0 [facility] Comment on above: Order Comment: Speci men Type: BLOOD SPECIMEN Ordering Facility: [facility] Address: [address] Performed By: #### 5 7021-8, 80607-1 #### [facility] CLIA [id number] [address] [place] [address] 53709 Monocytes (Bld) [#/Vol] 0.44 10*3/uL Normal <0.87 [facility] Comment on above: Order Comment: Speci men Type: BLOOD SPECIMEN Ordering Facility: [facility] Address: [address] Performed By: #### 5 7021-8, 93275-9 #### [facility] CLIA [id number] [address] [place] [address] 29808 Monocytes/100 WBC (Bld) 12.1 % Normal [facility] Comment on above: Order Comment: Speci men Type: BLOOD SPECIMEN Ordering Facility: [facility] Address: [address] Performed By: #### 5 7021-8, 64384-9 #### [facility] CLIA [id number] [address] [place] [address] 75243 Neutrophils (Bld) [#/Vol] 1.69 10*3/uL Normal 1.45-7.50 [facility] Comment on above: Order Comment: Speci men Type: BLOOD SPECIMEN Ordering Facility: [facility] Address: [address] Performed By: #### 5 7021-8, 56316-3 #### [facility] CLIA [id number] [address] [place] [address] 13094 Neutrophils/100 WBC (Bld) 46.5 % Normal [facility] Comment on above: Order Comment: Speci men Type: BLOOD SPECIMEN Ordering Facility: [facility] Address: [address] Performed By: #### 5 7021-8, 86250-0 #### [facility] CLIA [id number] [address] [place] [address] 87612 Nucleated RBC (Bld) [#/Vol] 10*3/uL Normal <0.01 [facility] Comment on above: Order Comment: Speci men Type: BLOOD SPECIMEN Ordering Facility: [facility] Address: [address] Performed By: #### 5 7021-8, 71712-0 #### [facility] CLIA [id number] [address] [place] [address] 78364 Nucleated RBC/100 WBC (Bld) [Ratio] 0.0 /100 WBC Normal [facility] Comment on above: Order Comment: Speci men Type: BLOOD SPECIMEN Ordering Facility: [facility] Address: [address] [place] [address] Performed By: #### 5 7021-8, 48754-7 #### [facility] CLIA [id number] [address] [place] [address] 52887 Platelet mean volume (Bld) [Entitic vol] 9.1 fL Normal 9.0-12.7 [facility] Comment on above: Order Comment: Speci men Type: BLOOD SPECIMEN Ordering Facility: [facility] Address: [address] Performed By: #### 5 7021-8, 88793-4 #### [facility] CLIA [id number] [address] [place] [address] 27179 Platelets (Bld) [#/Vol] 191 10*3/uL Normal 150-400 [facility] Comment on above: Order Comment: Speci men Type: BLOOD SPECIMEN Ordering Facility: [facility] Address: [address] Performed By: #### 5 7021-8, 07926-1 #### [facility] CLIA [id number] [address] [place] [address] 30190 RBC (Bld) [#/Vol] 4.30 10*6/uL Normal 3.90-5.20 [facility] Comment on above: Order Comment: Speci men Type: BLOOD SPECIMEN Ordering Facility: [facility] Address: [address] [place], [place] [address] Performed By: #### 5 7021-8, 37473-3 #### [facility] CLIA [id number] [address] [place] [address] 20878 WBC (Bld) [#/Vol] 3.63 10*3/uL Low 3.70-11.00 [facility] Comment on above: Order Comment: Speci men Type: BLOOD SPECIMEN Ordering Facility: [facility] Address: [address] [place], [place] [address] Performed By: #### 5 7021-8, 56876-1 #### [facility] CLIA [id number] [address] [place] [address] 58280 Comprehensive metabolic 2000 panelon 06-16-2023 Albumin [Mass/Vol] 4.4 g/dL Normal 3.9-4.9 [facility] Comment on above: Order Comment: Speci men Type: BLOOD SPECIMEN Ordering Facility: [facility] Address: [address] [place], [place] [address] Performed By: #### 2 4323-8, 24092-2 #### [facility] CLIA [id number] [address] [place] [address] [place] ALP [Catalytic activity/Vol] 95 U/L Normal 34-123 [facility] Comment on above: Order Comment: Speci men Type: BLOOD SPECIMEN Ordering Facility: [facility] Address: [address] [place], [place] [address] Performed By: #### 2 4323-8, 31105-4 #### [facility] CLIA [id number] [address] [place] [address] [place] ALT [Catalytic activity/Vol] 12 U/L Normal 7-38 [facility] Comment on above: Order Comment: Speci men Type: BLOOD SPECIMEN Ordering Facility: [facility] Address: [address] Performed By: #### 2 4323-8, #### [facility] [id number] [address] [place] [address] [place] Anion gap [Moles/Vol] 9 mmol/L Normal 9-18 [facility] Comment on above: Order Comment: Speci men Type: BLOOD SPECIMEN Ordering Facility: [facility] Address: [address] Performed By: #### 2 4323-8, #### [facility] [id number] [address] [place] [address] [place] AST [Catalytic activity/Vol] 15 U/L Normal 13-35 [facility] Comment on above: Order Comment: Speci men Type: BLOOD SPECIMEN Ordering Facility: [facility] Address: [address] Performed By: #### 2 4323-8, #### [facility] [id number] [address] [place] [address] [place] Bilirubin [Mass/Vol] 0.5 mg/dL Normal 0.2-1.3 [facility] Comment on above: Order Comment: Speci men Type: BLOOD SPECIMEN Ordering Facility: [facility] Address: [address] Performed By: #### 2 4323-8, #### [facility] [id number] [address] [place] [address] [place] Calcium [Mass/Vol] 9.4 mg/dL Normal 8.5-10.2 [facility] Comment on above: Order Comment: Speci men Type: BLOOD SPECIMEN Ordering Facility: [facility] Address: [address] Performed By: #### 2 4323-8, #### [facility] [id number] [address] [place] [address] [place] Chloride [Moles/Vol] 105 mmol/L Normal 97-105 [facility] Comment on above: Order Comment: Speci men Type: BLOOD SPECIMEN Ordering Facility: [facility] Address: [address] [place] [address] Performed By: #### 2 4323-8, #### [facility] [id number] [address] [place] [address] [place] CO2 [Moles/Vol] 26 mmol/L Normal 22-30 [facility] Comment on above: Order Comment: Speci men Type: BLOOD SPECIMEN Ordering Facility: [facility] Address: [address] [place] [address] Performed By: #### 2 4323-8, #### [facility] [id number] [address] [place] [address] [place] Creatinine [Mass/Vol] 0.99 mg/dL High 0.58-0.96 [facility] Comment on above: Order Comment: Speci men Type: BLOOD SPECIMEN Ordering Facility: [facility] Address: [address] [place] [address] Performed By: #### 2 4323-8, #### [facility] [id number] [address] [place] [address] [place] ESTIMATED GLOMERULAR FILTRATION RATE 60 mL/min/1.73m??? Normal >=60 [facility] Comment on above: Order Comment: Speci men Type: BLOOD SPECIMEN Ordering Facility: [facility] Address: [address] [place] [address] Result Comment: Ysesenia mated Glomerular Filtration Rate (eGFR) is calculated using the 2020 CKD-EPI creatinine equation. This equation utilizes serum creatinine, sex, and age as parameters. The creatinine assay has traceable calibration to isotope dilution-mass spectrometry. Refer to KDIGO guidelines for clinical interpretation. In patients with unstable renal function, e.g. those with acute kidney injury, the eGFR may not accurately reflect actual GFR. Performed By: #### 2 4323-8, #### [facility] CLIA [id number] [address] [address] [place] Glucose [Mass/Vol] 97 mg/dL Normal 74-99 [facility] Comment on above: Order Comment: Shar koch Type: BLOOD SPECIMEN Ordering Facility: [facility] Address: [address] [place] [address] Result Comment: The [place] [employer] (ADA) provides guidance for cutoff values for fasting glucose and random glucose. The ADA defines fasting as no caloric intake for at least 8 hours. Fasting plasma glucose results between 100 to 125 mg/dL indicate increased risk for diabetes (prediabetes). Fasting plasma glucose results greater than or equal to 126 mg/dL meet the criteria for diagnosis of diabetes. In the absence of unequivocal hyperglycemia, results should be confirmed by repeat testing. In a patient with classic symptoms of hyperglycemia or hyperglycemic crisis, random plasma glucose results greater than or equal to 200 mg/dL meet the criteria for diagnosis of diabetes. Reference: Standards of Medical Care in Diabetes 2016, [place] [employer]. Diabetes Care. 2016.39(Suppl 1). Performed By: #### 2 4323-8, #### [facility] CLIA [id number] [address] [place] [address] [place] Potassium [Moles/Vol] 4.5 mmol/L Normal 3.7-5.1 [facility] Comment on above: Order Comment: Shar okch Type: BLOOD SPECIMEN Ordering Facility: [facility] Address: [address] [place] [address] Performed By: #### 2 4323-, #### [facility] [place] [id number] [address] [address] [place] Protein [Mass/Vol] 7.3 g/dL Normal 6.3-8.0 [facility] Comment on above: Order Comment: Speci men Type: BLOOD SPECIMEN Ordering Facility: [facility] Address: [address] [place] [address] Performed By: #### 2 4323-8, #### [facility] [id number] [address] [place] [address] [place] Sodium [Moles/Vol] 140 mmol/L Normal 136-144 [facility] Comment on above: Order Comment: Speci men Type: BLOOD SPECIMEN Ordering Facility: [facility] Address: [address] [place] [address] Performed By: #### 2 4323-8, #### [facility] [id number] [address] [place] [address] [place] Urea nitrogen [Mass/Vol] 23 mg/dL High 7-21 [facility] Comment on above: Order Comment: Speci men Type: BLOOD SPECIMEN Ordering Facility: [facility] Address: [address] [place] [address] Performed By: #### 2 4323-8, 14910-1 #### [facility] [id number] [address] [place] [address] [place] Retics #on 06-16-2023 Reticulocytes (Bld) [#/Vol] 0.37750 10*3/uL Normal 0.018-0.100 [facility] Comment on above: Order Comment: Speci men Type: BLOOD SPECIMEN Ordering Facility: [facility] Address: [address] [place], [place] [address] Performed By: #### 2 4323-8, 92423-7 #### [facility] [id number] [address] [place] [address] [place] Reticulocytes (Bld) [#/Vol]o n 06-16-2023 Reticulocytes/100 RBC (Bld) 1.4 % Normal 0.4-2.0 [facility] Comment on above: Order Comment: Speci men Type: BLOOD SPECIMEN Ordering Facility: [facility] Address: [address] [place] [address] Performed By: #### 2 4322-8, #### [facility] [id number] [address] [place] [address] [place] CBC W Auto Differential pane l (Bld)on 05-04-2023 Basophils (Bld) [#/Vol] 10*3/uL Normal <0.11 [facility] Comment on above: Order Comment: Speci men Type: BLOOD SPECIMEN Ordering Facility: [facility] Address: [address] [place] [address] Performed By: #### 2 4322-8, #### [facility] [id number] [address] [place] [address] [place] Basophils/100 WBC (Bld) 0.6 % Normal [facility] Comment on above: Order Comment: Speci men Type: BLOOD SPECIMEN Ordering Facility: [facility] Address: [address] [place] [address] Performed By: #### 2 4322-8, #### [facility] [id number] [address] [place] [address] [place] Differential cell count method Nom (Bld) Auto Normal [facility] Comment on above: Order Comment: Speci men Type: BLOOD SPECIMEN Ordering Facility: [facility] Address: [address] Performed By: #### 2 4323-8, #### [facility] [id number] [address] [place] [address] [place] Eosinophils (Bld) [#/Vol] 0.08 10*3/uL Normal <0.46 [facility] Comment on above: Order Comment: Speci men Type: BLOOD SPECIMEN Ordering Facility: [facility] Address: [address] Performed By: #### 2 4323-8, #### [facility] [place] [id number] [address] [place] [address] [place] Eosinophils/100 WBC (Bld) 2.5 % Normal [facility] Comment on above: Order Comment: Speci men Type: BLOOD SPECIMEN Ordering Facility: [facility] Address: [address] Performed By: #### 2 432-8, #### [facility] [id number] [address] [place] [address] [place] Erythrocyte distribution width (RBC) [Ratio] 12.8 % Normal 11.5-15.0 [facility] Comment on above: Order Comment: Speci men Type: BLOOD SPECIMEN Ordering Facility: [facility] Address: [address] [place], [place] [address] Performed By: #### 2 4322-8, #### [facility] [id number] [address] [place] [address] [place] Hematocrit (Bld) [Volume fraction] 36.8 % Normal 36.0-46.0 [facility] Comment on above: Order Comment: Speci men Type: BLOOD SPECIMEN Ordering Facility: [facility] Address: [address] [place], [place] [address] Performed By: #### 2 432-8, #### [facility] [place] [id number] [address] [place] [address] [place] Hemoglobin (Bld) [Mass/Vol] 12.6 g/dL Normal 11.5-15.5 [facility] Comment on above: Order Comment: Speci men Type: BLOOD SPECIMEN Ordering Facility: [facility] Address: [address] [place], [place] [address] Performed By: #### 2 432-8, #### [facility] CLIA [id number] [address] [place] [address] [place] Immature granulocytes (Bld) [#/Vol] 10*3/uL Normal <0.10 [facility] Comment on above: Order Comment: Speci men Type: BLOOD SPECIMEN Ordering Facility: [facility] Address: [address] [place] [address] Performed By: #### 2 4323-8, #### [facility] [id number] [address] [place] [address] [place] Immature granulocytes/100 WBC (Bld) 0.3 % Normal [facility] Comment on above: Order Comment: Speci men Type: BLOOD SPECIMEN Ordering Facility: [facility] Address: [address] [place] [address] Performed By: #### 2 4323-8, #### [facility] [id number] [address] [place] [address] [place] Lymphocytes (Bld) [#/Vol] 1.29 10*3/uL Normal 1.00-4.00 [facility] Comment on above: Order Comment: Speci men Type: BLOOD SPECIMEN Ordering Facility: [facility] Address: [address] [place], [place] [address] Performed By: #### 2 4323-8, #### [facility] [id number] [address] [place] [address] [place] Lymphocytes/100 WBC (Bld) 39.9 % Normal [facility] Comment on above: Order Comment: Speci men Type: BLOOD SPECIMEN Ordering Facility: [facility] Address: [address] [place], [place] [address] Performed By: #### 2 4323-8, #### [facility] [id number] [address] [place] [address] [place] MCH (RBC) [Entitic mass] 29.0 pg Normal 26.0-34.0 [facility] Comment on above: Order Comment: Speci men Type: BLOOD SPECIMEN Ordering Facility: [facility] Address: [address] [place], [place] [address] Performed By: #### 2 4323-8, #### [facility] [id number] [address] [place] [address] [place] MCHC (RBC) [Mass/Vol] 34.2 g/dL Normal 30.5-36.0 [facility] Comment on above: Order Comment: Speci men Type: BLOOD SPECIMEN Ordering Facility: [facility] Address: [address] [place], [place] [address] Performed By: #### 2 4323-8, #### [facility] [id number] [address] [place] [address] [place] MCV (RBC) [Entitic vol] 84.6 fL Normal 80.0-100.0 [facility] Comment on above: Order Comment: Speci men Type: BLOOD SPECIMEN Ordering Facility: [facility] Address: [address] [place], [place] [address] Performed By: #### 2 432-8, #### [facility] [id number] [address] [place] [address] [place] Monocytes (Bld) [#/Vol] 0.41 10*3/uL Normal <0.87 [facility] Comment on above: Order Comment: Speci men Type: BLOOD SPECIMEN Ordering Facility: [facility] Address: [address] [place], [place] [address] Performed By: #### 2 4323-8, #### [facility] [id number] [address] [place] [address] [place] Monocytes/100 WBC (Bld) 12.7 % Normal [facility] Comment on above: Order Comment: Speci men Type: BLOOD SPECIMEN Ordering Facility: [facility] Address: [address] Performed By: #### 2 4323-8, #### [facility] [id number] [address] [place] [address] [place] Neutrophils (Bld) [#/Vol] 1.42 10*3/uL Low 1.45-7.50 [facility] Comment on above: Order Comment: Speci men Type: BLOOD SPECIMEN Ordering Facility: [facility] Address: [address] Performed By: #### 2 4323-8, #### [facility] [id number] [address] [place] [address] [place] Neutrophils/100 WBC (Bld) 44.0 % Normal [facility] Comment on above: Order Comment: Speci men Type: BLOOD SPECIMEN Ordering Facility: [facility] Address: [address] [place], [place] [address] Performed By: #### 2 4323-8, #### [facility] [id number] [address] [place] [address] [place] Nucleated RBC (Bld) [#/Vol] 10*3/uL Normal <0.01 [facility] Comment on above: Order Comment: Speci men Type: BLOOD SPECIMEN Ordering Facility: [facility] Address: [address] [place], [place] [address] Performed By: #### 2 4323-8, #### [facility] [id number] [address] [place] [address] [place] Nucleated RBC/100 WBC (Bld) [Ratio] 0.0 /100 WBC Normal [facility] Comment on above: Order Comment: Speci men Type: BLOOD SPECIMEN Ordering Facility: [facility] Address: [address] [place], [place] [address] Performed By: #### 2 4323-8, 49287-8 #### [facility] [id number] [address] [place] [address] [place] Platelet mean volume (Bld) [Entitic vol] 8.7 fL Low 9.0-12.7 [facility] Comment on above: Order Comment: Speci men Type: BLOOD SPECIMEN Ordering Facility: [facility] Address: [address] [place], [place] [address] Performed By: #### 2 432-8, #### [facility] [id number] [address] [place] [address] [place] Platelets (Bld) [#/Vol] 181 10*3/uL Normal 150-400 [facility] Comment on above: Order Comment: Speci men Type: BLOOD SPECIMEN Ordering Facility: [facility] Address: [address] [place], [place] [address] Performed By: #### 2 432-8, #### [facility] [facility] [id number] [address] [place] [address] [place] RBC (Bld) [#/Vol] 4.35 10*6/uL Normal 3.90-5.20 [facility] Comment on above: Order Comment: Speci men Type: BLOOD SPECIMEN Ordering Facility: [facility] Address: [address] [place], [place] [address] Performed By: #### 2 4323-8, #### [facility] [id number] [address] [place] [address] [place] WBC (Bld) [#/Vol] 3.23 10*3/uL Low 3.70-11.00 [facility] Comment on above: Order Comment: Speci men Type: BLOOD SPECIMEN Ordering Facility: [facility] Address: [address] [place], [place] [address] Performed By: #### 2 4323-8, 32968-1 #### [facility] CLIA [id number] [address] [facility] [id number] [address] [place] Comprehensive metabolic 2000 panelon 05-04-2023 Albumin [Mass/Vol] 4.3 g/dL Normal 3.9-4.9 [facility] Comment on above: Order Comment: Speci men Type: BLOOD SPECIMEN Ordering Facility: [facility] Address: [address] [address] Performed By: #### 5 7021-8, 56945-0 #### [facility] CLIA [id number] [address] [place] [address] 62057 ALP [Catalytic activity/Vol] 99 U/L Normal 34-123 [facility] Comment on above: Order Comment: Speci men Type: BLOOD SPECIMEN Ordering Facility: [facility] Address: [address] [address] Performed By: #### 5 7021-8, 83995-0 #### [facility] CLIA [id number] [address] [place] [address] 53296 ALT [Catalytic activity/Vol] 11 U/L Normal 7-38 [facility] Comment on above: Order Comment: Speci men Type: BLOOD SPECIMEN Ordering Facility: [facility] Address: [address] [address] Performed By: #### 5 7021-8, 76622-5 #### [facility] CLIA [id number] [address] [place] [address] 52016 Anion gap [Moles/Vol] 8 mmol/L Low 9-18 [facility] Comment on above: Order Comment: Speci men Type: BLOOD SPECIMEN Ordering Facility: [facility] Address: [address] [place] [address] Performed By: #### 5 7021-8, 48042-2 #### [facility] CLIA [id number] [address] [place] [address] 98317 AST [Catalytic activity/Vol] 17 U/L Normal 13-35 [facility] Comment on above: Order Comment: Speci men Type: BLOOD SPECIMEN Ordering Facility: [facility] Address: [address] Performed By: #### 5 7021-8, 46848-0 #### [facility] CLIA [id number] [address] [place] [address] 10437 Bilirubin [Mass/Vol] 0.6 mg/dL Normal 0.2-1.3 [facility] Comment on above: Order Comment: Speci men Type: BLOOD SPECIMEN Ordering Facility: [facility] Address: [address] Performed By: #### 5 7021-8, 94515-5 #### [facility] CLIA [id number] [address] [place] [address] 45687 Calcium [Mass/Vol] 9.6 mg/dL Normal 8.5-10.2 [facility] Comment on above: Order Comment: Speci men Type: BLOOD SPECIMEN Ordering Facility: [facility] Address: [address] Performed By: #### 5 7021-8, 29904-6 #### [facility] CLIA [id number] [address] [place] [address] 48980 Chloride [Moles/Vol] 104 mmol/L Normal 97-105 [facility] Comment on above: Order Comment: Speci men Type: BLOOD SPECIMEN Ordering Facility: [facility] Address: [address] Performed By: #### 5 7021-8, 53570-0 #### [facility] CLIA [id number] [address] [place] [address] 54719 CO2 [Moles/Vol] 28 mmol/L Normal 22-30 [facility] Comment on above: Order Comment: Speci men Type: BLOOD SPECIMEN Ordering Facility: [facility] Address: [address] Performed By: #### 5 7021-8, 49819-9 #### [facility] CLIA [id number] [address] [place] [address] Creatinine [Mass/Vol] 1.00 mg/dL High 0.58-0.96 [facility] Comment on above: Order Comment: Shar koch Type: BLOOD SPECIMEN Ordering Facility: [facility] Address: [address] [place] [address] Performed By: #### 5 7021-8, 17121-3 #### [facility] CLIA [id number] [address] [place] [address] ESTIMATED GLOMERULAR FILTRATION RATE 60 mL/min/1.73m??? Normal >=60 [facility] Comment on above: Order Comment: Shar koch Type: BLOOD SPECIMEN Ordering Facility: [facility] Address: [address] [place] [address] Result Comment: Yessenia mated Glomerular Filtration Rate (eGFR) is calculated using the 2020 CKD-EPI creatinine equation. This equation utilizes serum creatinine, sex, and age as parameters. The creatinine assay has traceable calibration to isotope dilution-mass spectrometry. Refer to KDIGO guidelines for clinical interpretation. In patients with unstable renal function, e.g. those with acute kidney injury, the eGFR may not accurately reflect actual GFR. Performed By: #### 5 7021-8, 50710-5 #### [facility] CLIA [id number] [address] [place] [address] 86540 Glucose [Mass/Vol] 101 mg/dL High 74-99 [facility] Comment on above: Order Comment: Shar koch Type: BLOOD SPECIMEN Ordering Facility: [facility] Address: [address] [place] [address] Result Comment: The [place] Diabetes Association (ADA) provides guidance for cutoff values for fasting glucose and random glucose. The ADA defines fasting as no caloric intake for at least 8 hours. Fasting plasma glucose results between 100 to 125 mg/dL indicate increased risk for diabetes (prediabetes). Fasting plasma glucose results greater than or equal to 126 mg/dL meet the criteria for diagnosis of diabetes. In the absence of unequivocal hyperglycemia, results should be confirmed by repeat testing. In a patient with classic symptoms of hyperglycemia or hyperglycemic crisis, random plasma glucose results greater than or equal to 200 mg/dL meet the criteria for diagnosis of diabetes. Reference: Standards of Medical Care in Diabetes 2016, [place] [employer] Association. Diabetes Care. 2016.39(Suppl 1). Performed By: #### 5 7021-8, 04216-4 #### [facility] CLIA [id number] [address] [place] [address] 39523 Potassium [Moles/Vol] 4.4 mmol/L Normal 3.7-5.1 [facility] Comment on above: Order Comment: Speci men Type: BLOOD SPECIMEN Ordering Facility: [facility] Address: [address] [address] Performed By: #### 5 7021-8, 32136-2 #### [facility] CLIA [id number] [address] [place] [address] 14574 Protein [Mass/Vol] 7.5 g/dL Normal 6.3-8.0 [facility] Comment on above: Order Comment: Speci men Type: BLOOD SPECIMEN Ordering Facility: [facility] Address: [address] [address] Performed By: #### 5 7021-8, 34148-9 #### [facility] CLIA [id number] [address] [place] [address] 62350 Sodium [Moles/Vol] 140 mmol/L Normal 136-144 [facility] Comment on above: Order Comment: Speci men Type: BLOOD SPECIMEN Ordering Facility: [facility] Address: [address] Performed By: #### 5 7021-8, 62818-3 #### [facility] CLIA [id number] [address] [place] [address] 85966 Urea nitrogen [Mass/Vol] 24 mg/dL High 7-21 [facility] Comment on above: Order Comment: Speci men Type: BLOOD SPECIMEN Ordering Facility: [facility] Address: [address] Performed By: #### 5 7021-8, 54336-4 #### [facility] CLIA [id number] [address] [place] [address] 09299 Retics #on 05-04-2023 Reticulocytes (Bld) [#/Vol] 0.64377 10*3/uL Normal 0.018-0.100 [facility] Comment on above: Order Comment: Speci men Type: BLOOD SPECIMEN Ordering Facility: [facility] Address: [address] [place] [address] Performed By: #### 2 4323-8, 66480-1 #### [facility] [id number] [address] [place] [address] [place] Reticulocytes (Bld) [#/Vol]o n 05-04-2023 Reticulocytes/100 RBC (Bld) 1.6 % Normal 0.4-2.0 [facility] Comment on above: Order Comment: Speci men Type: BLOOD SPECIMEN Ordering Facility: [facility] Address: [address] [place] [address] Performed By: #### 2 4323-8, 44974-5 #### [facility] [id number] [address] [place] [address] [place] [facility] CBC W Auto Differential pane l (Bld)on 03-31-2023 Basophils (Bld) [#/Vol] 10*3/uL Normal <0.11 [facility] Comment on above: Order Comment: Speci men Type: BLOOD SPECIMEN Ordering Facility: [facility] Address: [address] Performed By: #### 5 7021-8, 73148-6 #### [facility] CLIA [id number] [address] [place] [address] 31438 Basophils/100 WBC (Bld) 0.7 % Normal [facility] Comment on above: Order Comment: Speci men Type: BLOOD SPECIMEN Ordering Facility: [facility] Address: [address] [place], [place] [address] Performed By: #### 5 7021-8, 07942-1 #### [facility] CLIA [id number] [address] [place] [address] 45875 Differential cell count method Nom (Bld) Auto Normal [facility] Comment on above: Order Comment: Speci men Type: BLOOD SPECIMEN Ordering Facility: [facility] Address: [address] [place] [address] Performed By: #### 5 7021-8, 32172-5 #### [facility] CLIA [id number] [address] [place] [address] 48299 Eosinophils (Bld) [#/Vol] 0.06 10*3/uL Normal <0.46 [facility] Comment on above: Order Comment: Speci men Type: BLOOD SPECIMEN Ordering Facility: [facility] Address: [address] [place] [address] Performed By: #### 5 7021-8, 72180-2 #### [facility] CLIA [id number] [address] [place] [address] 48186 Eosinophils/100 WBC (Bld) 2.1 % Normal [facility] Comment on above: Order Comment: Speci men Type: BLOOD SPECIMEN Ordering Facility: [facility] Address: [address] [place] [address] Performed By: #### 5 7021-8, 94938-7 #### [facility] CLIA [id number] [address] [place] [address] 49765 Erythrocyte distribution width (RBC) [Ratio] 13.2 % Normal 11.5-15.0 [facility] Comment on above: Order Comment: Speci men Type: BLOOD SPECIMEN Ordering Facility: [facility] Address: [address] [place] [address] Performed By: #### 5 7021-8, 07295-7 #### [facility] CLIA [id number] [address] [place] [address] 38382 Hematocrit (Bld) [Volume fraction] 38.0 % Normal 36.0-46.0 [facility] Comment on above: Order Comment: Speci men Type: BLOOD SPECIMEN Ordering Facility: [facility] Address: [address] Performed By: #### 5 7021-8, 03461-2 #### [facility] CLIA [id number] [address] [place] [address] 79680 Hemoglobin (Bld) [Mass/Vol] 12.6 g/dL Normal 11.5-15.5 [facility] Comment on above: Order Comment: Speci men Type: BLOOD SPECIMEN Ordering Facility: [facility] Address: [address] Performed By: #### 5 7021-8, 22947-5 #### [facility] CLIA [id number] [address] [place] [address] 41279 Immature granulocytes (Bld) [#/Vol] 10*3/uL Normal <0.10 [facility] Comment on above: Order Comment: Speci men Type: BLOOD SPECIMEN Ordering Facility: [facility] Address: [address] Performed By: #### 5 7021-8, 82839-9 #### [facility] CLIA [id number] [address] [place] [address] 25534 Immature granulocytes/100 WBC (Bld) 0.0 % Normal [facility] Comment on above: Order Comment: Speci men Type: BLOOD SPECIMEN Ordering Facility: [facility] Address: [address] Performed By: #### 5 7021-8, 41052-0 #### [facility] CLIA [id number] [address] [place] [address] 65119 Lymphocytes (Bld) [#/Vol] 1.19 10*3/uL Normal 1.00-4.00 [facility] Comment on above: Order Comment: Speci men Type: BLOOD SPECIMEN Ordering Facility: [facility] Address: [address] Performed By: #### 5 7021-8, 58285-8 #### [facility] CLIA [id number] [address] [place] [address] 29580 Lymphocytes/100 WBC (Bld) 41.8 % Normal [facility] Comment on above: Order Comment: Speci men Type: BLOOD SPECIMEN Ordering Facility: [facility] Address: [address] [place] [address] Performed By: #### 5 7021-8, 45578-2 #### [facility] CLIA [id number] [address] [place] [address] 91276 MCH (RBC) [Entitic mass] 28.3 pg Normal 26.0-34.0 [facility] Comment on above: Order Comment: Speci men Type: BLOOD SPECIMEN Ordering Facility: [facility] Address: [address] [place] [address] Performed By: #### 5 7021-8, 79289-2 #### [facility] CLIA [id number] [address] [place] [address] 89259 MCHC (RBC) [Mass/Vol] 33.2 g/dL Normal 30.5-36.0 [facility] Comment on above: Order Comment: Speci men Type: BLOOD SPECIMEN Ordering Facility: [facility] Address: [address] [place] [address] Performed By: #### 5 7021-8, 04851-1 #### [facility] CLIA [id number] [address] [place] [address] 43971 MCV (RBC) [Entitic vol] 85.2 fL Normal 80.0-100.0 [facility] Comment on above: Order Comment: Speci men Type: BLOOD SPECIMEN Ordering Facility: [facility] Address: [address] [place] [address] Performed By: #### 5 7021-8, 84831-0 #### [facility] CLIA [id number] [address] [place] [address] 20821 Monocytes (Bld) [#/Vol] 0.44 10*3/uL Normal <0.87 [facility] Comment on above: Order Comment: Speci men Type: BLOOD SPECIMEN Ordering Facility: [facility] Address: [address] Performed By: #### 5 7021-8, 59653-4 #### [facility] CLIA [id number] [address] [place] [address] 64895 Monocytes/100 WBC (Bld) 15.4 % Normal [facility] Comment on above: Order Comment: Speci men Type: BLOOD SPECIMEN Ordering Facility: [facility] Address: [address] Performed By: #### 5 7021-8, 37412-3 #### [facility] CLIA [id number] [address] [place] [address] 84156 Neutrophils (Bld) [#/Vol] 1.14 10*3/uL Low 1.45-7.50 [facility] Comment on above: Order Comment: Speci men Type: BLOOD SPECIMEN Ordering Facility: [facility] Address: [address] Performed By: #### 5 7021-8, 16584-6 #### [facility] CLIA [id number] [address] [place] [address] 97533 Neutrophils/100 WBC (Bld) 40.0 % Normal [facility] Comment on above: Order Comment: Speci men Type: BLOOD SPECIMEN Ordering Facility: [facility] Address: [address] Performed By: #### 5 7021-8, 54123-9 #### [facility] CLIA [id number] [address] [place] [address] 38742 Nucleated RBC (Bld) [#/Vol] 10*3/uL Normal <0.01 [facility] Comment on above: Order Comment: Speci men Type: BLOOD SPECIMEN Ordering Facility: [facility] Address: [address] Performed By: #### 5 7021-8, 87278-4 #### [facility] CLIA [id number] [address] [place] [address] 33634 Nucleated RBC/100 WBC (Bld) [Ratio] 0.0 /100 WBC Normal [facility] Comment on above: Order Comment: Speci men Type: BLOOD SPECIMEN Ordering Facility: [facility] Address: [address] [place], [place] [address] Performed By: #### 5 7021-8, 92683-7 #### [facility] CLIA [id number] [address] [place] [address] 39521 Platelet mean volume (Bld) [Entitic vol] 9.0 fL Normal 9.0-12.7 [facility] Comment on above: Order Comment: Speci men Type: BLOOD SPECIMEN Ordering Facility: [facility] Address: [address] [place], [place] [address] Performed By: #### 5 7021-8, 85094-8 #### [facility] CLIA [id number] [address] [place] [address] 60180 Platelets (Bld) [#/Vol] 175 10*3/uL Normal 150-400 [facility] Comment on above: Order Comment: Speci men Type: BLOOD SPECIMEN Ordering Facility: [facility] Address: [address] [place], [place] [address] Performed By: #### 5 7021-8, 13015-2 #### [facility] CLIA [id number] [address] [place] [address] 78110 RBC (Bld) [#/Vol] 4.46 10*6/uL Normal 3.90-5.20 [facility] Comment on above: Order Comment: Speci men Type: BLOOD SPECIMEN Ordering Facility[facility] Address: [address] [place], [place] [address] Performed By: #### 5 7021-8, 76220-4 #### [facility] CLIA [id number] [address] [place] [address] 91259 WBC (Bld) [#/Vol] 2.85 10*3/uL Low 3.70-11.00 [facility] Comment on above: Order Comment: Speci men Type: BLOOD SPECIMEN Ordering Facility[facility] Address: [address] [place] [address] Performed By: #### 5 7021-8, 53186-3 #### [facility] CLIA [id number] [address] [place] [address] 39198 Comprehensive metabolic 2000 panelon 03-31-2023 Albumin [Mass/Vol] 4.3 g/dL Normal 3.9-4.9 [facility] Comment on above: Order Comment: Speci men Type: BLOOD SPECIMEN Ordering Facility: [facility] Address: [address] [place] [address] Performed By: #### 5 7021-8, 16959-8 #### [facility] CLIA [id number] [address] [place] [address] 71519 ALP [Catalytic activity/Vol] 79 U/L Normal 34-123 [facility] Comment on above: Order Comment: Speci men Type: BLOOD SPECIMEN Ordering Facility: [facility] Address: [address] [place] [address] Performed By: #### 5 7021-8, 32586-1 #### [facility] CLIA [id number] [address] [place] [address] 45155 ALT [Catalytic activity/Vol] 10 U/L Normal 7-38 [facility] Comment on above: Order Comment: Speci men Type: BLOOD SPECIMEN Ordering Facility: [facility] Address: [address] [place] [address] Performed By: #### 5 7021-8, 61854-5 #### [facility] CLIA [id number] [address] [place] [address] 29707 Anion gap [Moles/Vol] 9 mmol/L Normal 9-18 [facility] Comment on above: Order Comment: Speci men Type: BLOOD SPECIMEN Ordering Facility: [facility] Address: [address] Performed By: #### 5 7021-8, 06689-0 #### [facility] CLIA [id number] [address] [place] [address] 71103 AST [Catalytic activity/Vol] 17 U/L Normal 13-35 [facility] Comment on above: Order Comment: Speci men Type: BLOOD SPECIMEN Ordering Facility: [facility] Address: [address] [address] Performed By: #### 5 7021-8, 78622-0 #### [facility] CLIA [id number] [address] [place] [address] 89979 Bilirubin [Mass/Vol] 0.6 mg/dL Normal 0.2-1.3 [facility] Comment on above: Order Comment: Speci men Type: BLOOD SPECIMEN Ordering Facility: [facility] Address: [address] [address] Performed By: #### 5 7021-8, 91612-1 #### [facility] CLIA [id number] [address] [place] [address] 07657 Calcium [Mass/Vol] 9.9 mg/dL Normal 8.5-10.2 [facility] Comment on above: Order Comment: Speci men Type: BLOOD SPECIMEN Ordering Facility: [facility] Address: [address] [address] Performed By: #### 5 7021-8, 00409-0 #### [facility] CLIA [id number] [address] [place] [address] 21919 Chloride [Moles/Vol] 104 mmol/L Normal 97-105 [facility] Comment on above: Order Comment: Speci men Type: BLOOD SPECIMEN Ordering Facility: [facility] Address: [address] [address] Performed By: #### 5 7021-8, 82824-9 #### [facility] CLIA [id number] [address] [place] [address] CO2 [Moles/Vol] 26 mmol/L Normal 22-30 [facility] Comment on above: Order Comment: Speci men Type: BLOOD SPECIMEN Ordering Facility: [facility] Address: [address] [place] [address] Performed By: #### 5 7021-8, 42658-3 #### [facility] CLIA [id number] [address] [place] [address] 92723 Creatinine [Mass/Vol] 1.04 mg/dL High 0.58-0.96 [facility] Comment on above: Order Comment: Speci men Type: BLOOD SPECIMEN Ordering Facility: [facility] Address: [address] [place] [address] Performed By: #### 5 7021-8, 27598-5 #### [facility] CLIA [id number] [address] [place] [address] 53526 ESTIMATED GLOMERULAR FILTRATION RATE 57 mL/min/1.73m??? Low >=60 [facility] Comment on above: Order Comment: Speci men Type: BLOOD SPECIMEN Ordering Facility: [facility] Address: [address] [place] [address] Result Comment: Yessenia mated Glomerular Filtration Rate (eGFR) is calculated using the 2020 CKD-EPI creatinine equation. This equation utilizes serum creatinine, sex, and age as parameters. The creatinine assay has traceable calibration to isotope dilution-mass spectrometry. Refer to KDIGO guidelines for clinical interpretation. In patients with unstable renal function, e.g. those with acute kidney injury, the eGFR may not accurately reflect actual GFR. Performed By: #### 5 7021-8, 93353-0 #### [facility] CLIA [id number] [address] [place] [address] 13086 Glucose [Mass/Vol] 97 mg/dL Normal 74-99 [facility] Comment on above: Order Comment: Speci men Type: BLOOD SPECIMEN Ordering Facility: [facility] Address: [address] [place] [address] Result Comment: The [place] Diabetes [employer] (ADA) provides guidance for cutoff values for fasting glucose and random glucose. The ADA defines fasting as no caloric intake for at least 8 hours. Fasting plasma glucose results between 100 to 125 mg/dL indicate increased risk for diabetes (prediabetes). Fasting plasma glucose results greater than or equal to 126 mg/dL meet the criteria for diagnosis of diabetes. In the absence of unequivocal hyperglycemia, results should be confirmed by repeat testing. In a patient with classic symptoms of hyperglycemia or hyperglycemic crisis, random plasma glucose results greater than or equal to 200 mg/dL meet the criteria for diagnosis of diabetes. Reference: Standards of Medical Care in Diabetes 2016, [place] [employer]. Diabetes Care. 2016.39(Suppl 1). Performed By: #### 5 7021-8, 81419-4 #### [facility] CLIA [id number] [address] [place] [address] 75059 Potassium [Moles/Vol] 4.5 mmol/L Normal 3.7-5.1 [facility] Comment on above: Order Comment: Speci men Type: BLOOD SPECIMEN Ordering Facility[facility] Address: [address] [address] Performed By: #### 5 7021-8, 47576-7 #### [facility] CLIA [id number] [address] [place] [address] Protein [Mass/Vol] 7.4 g/dL Normal 6.3-8.0 [facility] Comment on above: Order Comment: Speci men Type: BLOOD SPECIMEN Ordering Facility: [facility] Address: [address] [address] Performed By: #### 5 7021-8, 83180-4 #### [facility] CLIA [id number] [address] [place] [address] Sodium [Moles/Vol] 139 mmol/L Normal 136-144 [facility] Comment on above: Order Comment: Speci men Type: BLOOD SPECIMEN Ordering Facility: [facility] Address: [address] Performed By: #### 5 7021-8, 63659-3 #### [facility] CLIA [id number] [address] [place] [address] Urea nitrogen [Mass/Vol] 24 mg/dL High 7-21 [facility] Comment on above: Order Comment: Speci men Type: BLOOD SPECIMEN Ordering Facility: [facility] Address: [address] [place] [address] Performed By: #### 5 7021-8, 15083-5 #### [facility] CLIA [id number] [address] [place] [address] 70111 Retics #on 03-31-2023 Reticulocytes (Bld) [#/Vol] 0.07825 10*3/uL Normal 0.018-0.100 [facility] Comment on above: Order Comment: Speci men Type: BLOOD SPECIMEN Ordering Facility: [facility] Address: [address] [place] [address] Performed By: #### 5 7021-8, 77669-9 #### [facility] [place] [id number] [address] [place] [address] Reticulocytes (Bld) [#/Vol]o n 03-31-2023 Reticulocytes/100 RBC (Bld) 1.6 % Normal 0.4-2.0 [facility] Comment on above: Order Comment: Speci men Type: BLOOD SPECIMEN Ordering Facility: [facility] Address: [address] [place] [address] Performed By: #### 5 7021-8, 81446-8 #### [facility] CLIA [id number] [address] [place] [address] 23145 CBC W Auto Differential pane l (Bld)on 03-09-2023 Basophils (Bld) [#/Vol] <0.11 k/uL [facility] Basophils/100 WBC (Bld) 0.4 % [facility] Differential cell count method Nom (Bld) Auto [facility] Eosinophils (Bld) [#/Vol] 0.04 10*3/uL <0.46 k/uL [facility] Eosinophils/100 WBC (Bld) 1.5 % [facility] Erythrocyte distribution width (RBC) [Ratio] 13.1 % 11.5 - 15.0 % [facility] Hematocrit (Bld) [Volume fraction] 38.1 % 36.0 - 46.0 % [facility] Hemoglobin (Bld) [Mass/Vol] 12.7 g/dL 11.5 - 15.5 g/dL [facility] Immature granulocytes (Bld) [#/Vol] <0.10 k/uL [facility] Immature granulocytes/100 WBC (Bld) 0.0 % [facility] Lymphocytes (Bld) [#/Vol] 1.19 10*3/uL 1.00 - 4.00 k/uL [facility] Lymphocytes/100 WBC (Bld) 45.4 % [facility] MCH (RBC) [Entitic mass] 28.3 pg 26.0 - 34.0 pg [facility] MCHC (RBC) [Mass/Vol] 33.3 g/dL 30.5 - 36.0 g/dL [facility] MCV (RBC) [Entitic vol] 85.0 fL 80.0 - 100.0 fL [facility] Monocytes (Bld) [#/Vol] 0.37 10*3/uL <0.87 k/uL [facility] Monocytes/100 WBC (Bld) 14.1 % [facility] Neutrophils (Bld) [#/Vol] 1.01 10*3/uL Low 1.45 - 7.50 k/uL [facility] Neutrophils/100 WBC (Bld) 38.6 % [facility] Nucleated RBC (Bld) [#/Vol] <0.01 k/uL [facility] Nucleated RBC/100 WBC (Bld) [Ratio] 0.0 /100 WBC [facility] Platelet mean volume (Bld) [Entitic vol] 9.1 fL 9.0 - 12.7 fL [facility] Platelets (Bld) [#/Vol] 192 10*3/uL 150 - 400 k/uL [facility] RBC (Bld) [#/Vol] 4.48 10*6/uL 3.90 - 5.2 0 m/uL [facility] WBC (Bld) [#/Vol] 2.62 10*3/uL Low 3.70 - 11. 00 k/uL [facility] CBC W Auto Differential pane l (Bld)on 03-08-2023 Basophils (Bld) [#/Vol] 10*3/uL Normal <0.11 [facility] Comment on above: Order Comment: Speci men Type: BLOOD SPECIMEN Ordering Facility: [facility] Address: [address] [place] [address] Performed By: #### 5 7021-8, 28674-9 #### [facility] CLIA [id number] [address] [place] [address] [place] #### [id number], [id number] #### [facility] CLIA [id number] [address] [place] [address] [place] Basophils/100 WBC (Bld) 0.4 % Normal [facility] Comment on above: Order Comment: Speci men Type: BLOOD SPECIMEN Ordering Facility: [facility] Address: [address] [place], [place] [address] Performed By: #### 5 7021-8, 47637-9 #### [facility] CLIA [id number] [address] [place] [address] [place] #### [id number], [id number] #### [facility] CLIA [id number] [address] [place] [address] [place] Differential cell count method Nom (Bld) Auto Normal [facility] Comment on above: Order Comment: Speci men Type: BLOOD SPECIMEN Ordering Facility: [facility] Address: [address] [place] [address] Performed By: #### 5 7021-8, 02228-6 #### [facility] CLIA [id number] [address] [place] [address] [place] #### [id number], [id number] #### [facility] CLIA [id number] [address] [place] [address] [place] Eosinophils (Bld) [#/Vol] 0.04 10*3/uL Normal <0.46 [facility] Comment on above: Order Comment: Speci men Type: BLOOD SPECIMEN Ordering Facility: [facility] Address: [address] Performed By: #### 5 7021-8, 13600-0 #### [facility] CLIA [id number] [address] [place] [address] [place] #### [id number], [id number] #### [facility] CLIA [id number] [address] [place] [address] [place] Eosinophils/100 WBC (Bld) 1.5 % Normal [facility] Comment on above: Order Comment: Speci men Type: BLOOD SPECIMEN Ordering Facility: [facility] Address: [address] [place] [address] Performed By: #### 5 7021-8, 68721-2 #### [facility] CLIA [id number] [address] [place] [address] [place] #### [id number], [id number] #### [facility] CLIA [id number] [address] [place] [address] [place] Erythrocyte distribution width (RBC) [Ratio] 13.1 % Normal 11.5-15.0 [facility] Comment on above: Order Comment: Speci men Type: BLOOD SPECIMEN Ordering Facility: [facility] Address: [address] [place] [address] Performed By: #### 5 7021-8, 19011-3 #### [facility] CLIA [id number] [address] [place] [address] [place] #### [id number], [id number] #### [facility] CLIA [id number] [address] [place] [address] [place] Hematocrit (Bld) [Volume fraction] 38.1 % Normal 36.0-46.0 [facility] Comment on above: Order Comment: Speci men Type: BLOOD SPECIMEN Ordering Facility: [facility] Address: [address] [place] [address] Performed By: #### 5 7021-8, 99195-0 #### [facility] CLIA [id number] [address] [place] [address] [place] #### [id number], [id number] #### [facility] CLIA [id number] [address] [place] [address] [place] Hemoglobin (Bld) [Mass/Vol] 12.7 g/dL Normal 11.5-15.5 [facility] Comment on above: Order Comment: Speci men Type: BLOOD SPECIMEN Ordering Facility: [facility] Address: [address] Performed By: #### 5 7021-8, 72692-8 #### [facility] CLIA [id number] [address] [place] [address] [place] #### [id number], [id number] #### [facility] CLIA [id number] [address] [place] [address] [place] Immature granulocytes (Bld) [#/Vol] 10*3/uL Normal <0.10 [facility] Comment on above: Order Comment: Speci men Type: BLOOD SPECIMEN Ordering Facility: [facility] Address: [address] [place] [address] Performed By: #### 5 7021-8, 79058-2 #### [facility] CLIA [id number] [address] [place] [address] [place] #### [id number], [id number] #### [facility] CLIA [id number] [address] [place] [address] [place] Immature granulocytes/100 WBC (Bld) 0.0 % Normal [facility] Comment on above: Order Comment: Speci men Type: BLOOD SPECIMEN Ordering Facility: [facility] Address: [address] [place] [address] Performed By: #### 5 7021-8, 29612-9 #### [facility] CLIA [id number] [address] [place] [address] [place] #### [id number], [id number] #### [facility] CLIA [id number] [address] [place] [address] [place] Lymphocytes (Bld) [#/Vol] 1.19 10*3/uL Normal 1.00-4.00 [facility] Comment on above: Order Comment: Speci men Type: BLOOD SPECIMEN Ordering Facility: [facility] Address: [address] [place], [place] [address] Performed By: #### 5 7021-8, 97700-7 #### [facility] CLIA [id number] [address] [place] [address] [place] #### [id number], [id number] #### [facility] CLIA [id number] [address] [place] [address] [place] Lymphocytes/100 WBC (Bld) 45.4 % Normal [facility] Comment on above: Order Comment: Speci men Type: BLOOD SPECIMEN Ordering Facility: [facility] Address: [address] [place] [address] Performed By: #### 5 7021-8, 87034-8 #### [facility] CLIA [id number] [address] [place] [address] [place] #### [id number], [id number] #### [facility] CLIA [id number] [address] [place] [address] [place] MCH (RBC) [Entitic mass] 28.3 pg Normal 26.0-34.0 [facility] Comment on above: Order Comment: Speci men Type: BLOOD SPECIMEN Ordering Facility: [facility] Address: [address] Performed By: #### 5 7021-8, 00293-5 #### [facility] CLIA [id number] [address] [place] [address] [place] #### [id number], [id number] #### [facility] CLIA [id number] [address] [place] [address] [place] MCHC (RBC) [Mass/Vol] 33.3 g/dL Normal 30.5-36.0 [facility] Comment on above: Order Comment: Speci men Type: BLOOD SPECIMEN Ordering Facility: [facility] Address: [address] Performed By: #### 5 7021-8, 92845-7 #### [facility] IA [id number] [address] [place] [address] [place] #### [id number], [id number] #### [facility] CLIA [id number] [address] [place] [address] [place] MCV (RBC) [Entitic vol] 85.0 fL Normal 80.0-100.0 [facility] Comment on above: Order Comment: Speci men Type: BLOOD SPECIMEN Ordering Facility: [facility] Address: [address] [place] [address] Performed By: #### 5 7021-8, 63295-3 #### [facility] [id number] [address] [place] [address] [place] #### [id number], [id number] #### [facility] CLIA [id number] [address] [place] [address] [place] Monocytes (Bld) [#/Vol] 0.37 10*3/uL Normal <0.87 [facility] Comment on above: Order Comment: Speci men Type: BLOOD SPECIMEN Ordering Facility: [facility] Address: [address] Performed By: #### 5 7021-8, 35124-7 #### [facility] CLIA [id number] [address] [place] [address] [place] #### [id number], [id number] #### [facility] CLIA [id number] [address] [place] [address] [place] Monocytes/100 WBC (Bld) 14.1 % Normal [facility] Comment on above: Order Comment: Speci men Type: BLOOD SPECIMEN Ordering Facility: [facility] Address: [address] [place] [address] Performed By: #### 5 7021-8, 51576-5 #### [facility] CLIA [id number] [address] [place] [address] [place] #### [id number], [id number] #### [facility] CLIA [id number] [address] [place] [address] [place] Neutrophils (Bld) [#/Vol] 1.01 10*3/uL Low 1.45-7.50 [facility] Comment on above: Order Comment: Speci men Type: BLOOD SPECIMEN Ordering Facility: [facility] Address: [address] [place] [address] Performed By: #### 5 7021-8, 67298-6 #### [facility] CLIA [id number] [address] [place] [address] [place] #### [id number], [id number] #### [facility] CLIA [id number] [address] [place] [address] [place] Neutrophils/100 WBC (Bld) 38.6 % Normal [facility] Comment on above: Order Comment: Speci men Type: BLOOD SPECIMEN Ordering Facility: [facility] Address: [address] [place] [address] Performed By: #### 5 7021-8, 03757-2 #### [facility] CLIA [id number] [address] [place] [address] [place] #### [id number], [id number] #### [facility] CLIA [id number] [address] [place] [address] [place] Nucleated RBC (Bld) [#/Vol] 10*3/uL Normal <0.01 [facility] Comment on above: Order Comment: Speci men Type: BLOOD SPECIMEN Ordering Facility: [facility] Address: [address] [place] [address] Performed By: #### 5 7021-8, 27635-9 #### [facility] CLIA [id number] [address] [place] [address] [place] #### [id number], [id number] #### [facility] CLIA [id number] [address] [place] [address] [place] Nucleated RBC/100 WBC (Bld) [Ratio] 0.0 /100 WBC Normal [facility] Comment on above: Order Comment: Speci men Type: BLOOD SPECIMEN Ordering Facility: [facility] Address: [address] [place] [address] Performed By: #### 5 7021-8, 83453-8 #### [facility] IA [id number] [address] [place] [address] [place] #### [id number], [id number] #### [facility] CLIA [id number] [address] [place] [address] [place] Platelet mean volume (Bld) [Entitic vol] 9.1 fL Normal 9.0-12.7 [facility] Comment on above: Order Comment: Speci men Type: BLOOD SPECIMEN Ordering Facility: [facility] Address: [address] [address] Performed By: #### 5 7021-8, 72898-0 #### [facility] CLIA [id number] [address] [place] [address] [place] #### [id number], [id number] #### [facility] CLIA [id number] [address] [place] [address] [place] Platelets (Bld) [#/Vol] 192 10*3/uL Normal 150-400 [facility] Comment on above: Order Comment: Speci men Type: BLOOD SPECIMEN Ordering [facility] Address: [address] Performed By: #### 5 7021-8, 21764-9 #### [facility] CLIA [id number] [address] [place] [address] [place] #### [id number], [id number] #### [facility] CLIA [id number] [address] [place] [address] [place] RBC (Bld) [#/Vol] 4.48 10*6/uL Normal 3.90-5.20 [facility] Comment on above: Order Comment: Speci men Type: BLOOD SPECIMEN Ordering [facility] Address: [address] [place] [address] Performed By: #### 5 7021-8, 09555-9 #### [facility] CLIA [id number] [address] [place] [address] [place] #### [id number], [id number] #### [facility] CLIA [id number] [address] [place] [address] [place] WBC (Bld) [#/Vol] 2.62 10*3/uL Low 3.70-11.00 [facility] Comment on above: Order Comment: Speci men Type: BLOOD SPECIMEN Ordering [facility] Address: [address] [place] [address] Performed By: #### 5 7021-8, 68269-0 #### [facility] CLIA [id number] [address] [place] [address] [facility] #### [id number], [id number] #### [facility] IA [id number] [address] [place] [address] OF [facility] CNOVSPon 03-08-2023 CNOVSP Visit (SP) Office ([facility]) STEFAN LOYD ([id number]) 1950 F Date Time Provider Department 03/08/23 12:00 PM GUERO FLORES During your visit today, we recorded the following information about you: Temperature Pulse Respiration Blood pressure 97.4 degrees 70/minute 18/minute 169/71 Weight 89.8 kg Guero Flores MD, PhD 03/13/2023 4:42 PM Signed [facility] DEPARTMENT OF HEMATOLOGY AND MEDICAL ONCOLOGY CLINIC VISIT Chief Complaint: follow up of T-LGL HPI: This is a pleasant 72-year-old female with past medical history of rheumatoid arthritis who was on methotrexate and Plaquenil. She was on methotrexate from 2013 to July 2017 and plaquenil from 6664-3559. Before that she was on sulfasalazine and when necessary steroids. Patient stated that she was initially diagnosed with rheumatoid arthritis in 1991 and had multiple therapies are mentioned below. She was doing well on methotrexate with her symptoms well controlled. In summer it was noticed that her WBC and ANC were trending down. This prompted a follow-up with the office machines wirer. Initially it was thought to be secondary to methotrexate. The medication was stopped. 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 Interval history: Patient presents for routine follow up. Denies any complaints at this visit. BP elevated today but she was recently prescribed amlodipine and has been under a lot of stress due to undergoing multiple procedures for diabetic foot infection. Review of systems: 10-points systems reviewed and were negative except for what was mentioned in the history of present illness. Examination; Vital signs: 03/08/23 1155 BP: 169/71 Pulse: 70 Resp: 18 Temp: 36.3 ?C (97.4 ?F) TempSrc: Oral SpO2: 98% Weight: 89.8 kg (198 lb) General appearance: Well appearing, alert, in no acute distress Skin: no rash Lungs: breathing comfortably on room air. Lungs clear to auscultation Heart: RRR without murmur, or gallop. Abdomen: Abdomen soft, non-tender. No masses, organomegaly Extremities: No edema Musculoskeletal: Normal range of motion. No joint swelling, or deformity. Neuro: non focal LABS: Component Latest Ref Rng AND Units 03/08/2023 WBC 3.70 - 11.00 k/uL 2.62 (L) RBC 3.90 - 5.20 m/uL 4.48 Hemoglobin 11.5 - 15.5 g/dL 12.7 Hematocrit 36.0 - 46.0 % 38.1 MCV 80.0 - 100.0 fL 85.0 MCH 26.0 - 34.0 pg 28.3 MCHC 30.5 - 36.0 g/dL 33.3 RDW-CV 11.5 - 15.0 % 13.1 Platelet Count 150 - 400 k/uL 192 MPV 9.0 - 12.7 fL 9.1 Neut% % 38.6 Abs Neut (ANC) 1.45 - 7.50 k/uL 1.01 (L) Lymph% % 45.4 Abs Lymph 1.00 - 4.00 k/uL 1.19 [place]osa% % 14.1 Abs [place] <0.87 k/uL 0.37 Eosin% % 1.5 Abs Eosin <0.46 k/uL 0.04 Baso% % 0.4 Abs Baso <0.11 k/uL <0.03 Immature Gran % % 0.0 IMMATURE GRANS (ABS) <0.10 k/uL <0.03 NRBC /100 WBC 0.0 Absolute nRBC <0.01 k/uL <0.01 DTYPE Auto Protein, Total 6.3 - 8.0 g/dL 7.3 Albumin 3.9 - 4.9 g/dL 4.2 Calcium 8.5 - 10.2 mg/dL 9.4 Bilirubin, Total 0.2 - 1.3 mg/dL 0.6 Alkaline Phosphatase 34 - 123 U/L 76 AST 13 - 35 U/L 17 ALT 7 - 38 U/L 11 Glucose 74 - 99 mg/dL 90 BUN 7 - 21 mg/dL 20 Creatinine 0.58 - 0.96 mg/dL 0.93 Sodium 136 - 144 mmol/L 138 Potassium 3.7 - 5.1 mmol/L 4.6 Chloride 97 - 105 mmol/L 104 CO2 22 - 30 mmol/L 26 Anion Gap 9 - 18 mmol/L 8 (L) eGFR >=60 mL/min/1.73mA? 65 Retic % 0.4 - 2.0 % 1.5 Abs Retic 0.018 - 0.100 M/uL 0.068 LD 135 - 214 U/L 220 (H) Magnesium 1.7 - 2.3 mg/dL 1.8 Assessment and plan: Ms. Loyd is a 72 yo F with rheumatoid arthritis presenting for LGL follow up. 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 - Previously her ANC has dropped <500, at that time we increased Cyclosporine dose to 125 mg daily. Responded well. On CsA since 2018 PLAN -C/w CsA 100 mg AM and 125 mg PM (refilled) along with magnesium -ANC >500 and no oral lesions, pt is advised to discontinue ciprofloxacin at this time #Rheumatoid arthritis -On Plaquenil. 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 On propranolol primarly for BP. -Pt was started on amlodipine given that it is CsA induced. On Amlodipine 2.5 mg daily, however systolic BP is 171 today and advised to increase to 5 mg daily or 5 mg twice daily if persistently elevated -Pt will continue to monitor BP at home RTC in [address] Flores. Flaquita Hernandez MD Clinical and Experimental Hematology Fellow Attending Physician Note: Dr. Guero Flores MD, PhD I performed a history (more content not included)... Normal [facility] Comprehensive metabolic 2000 panelon 03-08-2023 Albumin [Mass/Vol] 4.2 g/dL Normal 3.9-4.9 [facility] Comment on above: Order Comment: Yelitzai zee Type: BLOOD SPECIMEN Ordering Facility: [facility] Address: [address] [place] [address] Performed By: #### 2 432-8, #### [facility] [id number] [address] [place] [address] [place] ALP [Catalytic activity/Vol] 76 U/L Normal 34-123 [facility] Comment on above: Order Comment: Shar koch Type: BLOOD SPECIMEN Ordering Facility: [facility] Address: [address] [place] [address] Performed By: #### 2 4323-8, #### [facility] [id number] [address] [place] [address] [place] ALT [Catalytic activity/Vol] 11 U/L Normal 7-38 [facility] Comment on above: Order Comment: Yelitzai zee Type: BLOOD SPECIMEN Ordering Facility: [facility] Address: [address] [place] [address] Performed By: #### 2 4323-8, #### [facility] [id number] [address] [place] [address] [place] Anion gap [Moles/Vol] 8 mmol/L Low 9-18 [facility] Comment on above: Order Comment: Speci men Type: BLOOD SPECIMEN Ordering Facility: [facility] Address: [address] [place] [address] Performed By: #### 2 4323-8, #### [facility] [id number] [address] [place] [address] [place] AST [Catalytic activity/Vol] 17 U/L Normal 13-35 [facility] Comment on above: Order Comment: Speci men Type: BLOOD SPECIMEN Ordering Facility: [facility] Address: [address] [place], [place] [id number] Performed By: #### 2 4323-8, #### [facility] [id number] [address] [place] [address] [place] Bilirubin [Mass/Vol] 0.6 mg/dL Normal 0.2-1.3 [facility] Comment on above: Order Comment: Speci men Type: BLOOD SPECIMEN Ordering Facility: [facility] Address: [address] [place], [place] [id number] Performed By: #### 2 4323-8, #### [facility] [id number] [address] [place] [address] [place] Calcium [Mass/Vol] 9.4 mg/dL Normal 8.5-10.2 [facility] Comment on above: Order Comment: Speci men Type: BLOOD SPECIMEN Ordering Facility: [facility] Address: [address] [place] [address] Performed By: #### 2 4323-8, #### [facility] [id number] [address] [place] [address] [place] Chloride [Moles/Vol] 104 mmol/L Normal 97-105 [facility] Comment on above: Order Comment: Speci men Type: BLOOD SPECIMEN Ordering Facility: [facility] Address: [address] Performed By: #### 2 4323-8, #### [facility] [id number] [address] [place] [address] [place] CO2 [Moles/Vol] 26 mmol/L Normal 22-30 [facility] Comment on above: Order Comment: Speci men Type: BLOOD SPECIMEN Ordering Facility: [facility] Address: [address] [place] [address] Performed By: #### 2 4323-8, #### [facility] [id number] [address] [place] [address] [place] Creatinine [Mass/Vol] 0.93 mg/dL Normal 0.58-0.96 [facility] Comment on above: Order Comment: Speci men Type: BLOOD SPECIMEN Ordering Facility: [facility] Address: [address] [place] [address] Performed By: #### 2 4323-8, #### [facility] [id number] [address] [place] [address] [place] ESTIMATED GLOMERULAR FILTRATION RATE 65 mL/min/1.73m??? Normal >=60 [facility] Comment on above: Order Comment: Speci men Type: BLOOD SPECIMEN Ordering Facility: [facility] Address: [address] [place] [address] Result Comment: Yessenia mated Glomerular Filtration Rate (eGFR) is calculated using the 2020 CKD-EPI creatinine equation. This equation utilizes serum creatinine, sex, and age as parameters. The creatinine assay has traceable calibration to isotope dilution-mass spectrometry. Refer to KDIGO guidelines for clinical interpretation. In patients with unstable renal function, e.g. those with acute kidney injury, the eGFR may not accurately reflect actual GFR. Performed By: #### 2 4323-8, #### [facility] [id number] [address] [place] [address] [place] Glucose [Mass/Vol] 90 mg/dL Normal 74-99 [facility] Comment on above: Order Comment: Specisacc koch Type: BLOOD SPECIMEN Ordering Facility: [facility] Address: [address] [place] [address] Result Comment: The [place] Diabetes Association (ADA) provides guidance for cutoff values for fasting glucose and random glucose. The ADA defines fasting as no caloric intake for at least 8 hours. Fasting plasma glucose results between 100 to 125 mg/dL indicate increased risk for diabetes (prediabetes). Fasting plasma glucose results greater than or equal to 126 mg/dL meet the criteria for diagnosis of diabetes. In the absence of unequivocal hyperglycemia, results should be confirmed by repeat testing. In a patient with classic symptoms of hyperglycemia or hyperglycemic crisis, random plasma glucose results greater than or equal to 200 mg/dL meet the criteria for diagnosis of diabetes. Reference: Standards of Medical Care in Diabetes 2016, [place] [employer] Association. Diabetes Care. 2016.39(Suppl 1). Performed By: #### 2 4323-8, #### [facility] [place] [id number] [address] [place] [address] [place] Potassium [Moles/Vol] 4.6 mmol/L Normal 3.7-5.1 [facility] Comment on above: Order Comment: Shar koch Type: BLOOD SPECIMEN Ordering Facility: [facility] Address: [address] [place], [place] [address] Performed By: #### 2 4323-8, #### [facility] [place] [id number] [address] [place] [address] [place] Protein [Mass/Vol] 7.3 g/dL Normal 6.3-8.0 [facility] Comment on above: Order Comment: Shar koch Type: BLOOD SPECIMEN Ordering Facility: [facility] Address: [address] [place] [address] Performed By: #### 2 4323-8, #### [facility] CLIA [id number] [address] [place] [address] [place] Sodium [Moles/Vol] 138 mmol/L Normal 136-144 [facility] Comment on above: Order Comment: Speci men Type: BLOOD SPECIMEN Ordering Facility: [facility] Address: [place] [address] Performed By: #### 2 4323-8, #### [facility] CLIA [id number] [address] [place] Urea nitrogen [Mass/Vol] 20 mg/dL Normal 7-21 [facility] Comment on above: Order Comment: Speci men Type: BLOOD SPECIMEN Ordering Facility: [facility] Address: [address] [facility] [place] [address] Performed By: #### 2 4323-8, #### [facility] CLIA [id number] [address] Albumin [Mass/Vol] 4.2 g/dL 3.9 - 4.9 g/dL [facility] ALP [Catalytic activity/Vol] 76 U/L 34 - 123 U/L [facility] ALT [Catalytic activity/Vol] 11 U/L 7 - 38 U/L [facility] Anion gap [Moles/Vol] 8 mmol/L Low 9 - 18 mmol/L [facility] AST [Catalytic activity/Vol] 17 U/L 13 - 35 U/L [facility] Bilirubin [Mass/Vol] 0.6 mg/dL 0.2 - 1.3 mg/dL [facility] Calcium [Mass/Vol] 9.4 mg/dL 8.5 - 10. 2 mg/dL [facility] Chloride [Moles/Vol] 104 mmol/L 97 - 105 mmol/L [facility] CO2 [Moles/Vol] 26 mmol/L 22 - 30 mmol/L [facility] Creatinine [Mass/Vol] 0.93 mg/dL 0.58 - 0.96 mg/dL [facility] Estimated Glomerular Filtration Rate 65 mL/min/1.73m >=60 mL/min/1.73m [facility] Glucose [Mass/Vol] 90 mg/dL 74 - 99 mg/dL [facility] Potassium [Moles/Vol] 4.6 mmol/L 3.7 - 5.1 mmol/L [facility] Protein [Mass/Vol] 7.3 g/dL 6.3 - 8.0 g/dL [facility] Sodium [Moles/Vol] 138 mmol/L 136 - 144 mmol/L [facility] Urea nitrogen [Mass/Vol] 20 mg/dL 7 - 21 mg/dL [facility] LARGE GRANULAR LYMPH COUNTon 03-08-2023 ABSOLUTE LGL 0.26 k/uL Normal [facility] Comment on above: Order Comment: Speci men Type: BLOOD SPECIMEN Ordering Facility: [facility] Address: [address] [place] [address] Performed By: #### 5 7021-8, 75220-3 #### [facility] [place] [id number] [address] [place] [address] [place] #### [id number], [id number] #### [facility] CLIA [id number] [address] [place] [address] [place] PERCENT LGL 22.0 % of Lymphocytes Normal [facility] Comment on above: Order Comment: Speci men Type: BLOOD SPECIMEN Ordering Facility: [facility] Address: [address] [place] [address] Performed By: #### 5 7021-8, 07965-5 #### [facility] CLNV [id number] [address] [place] [address] [place] #### [id number], [id number] #### [facility] CLIA [id number] [address] [place] [address] [place] LD LACTATE DEHYDROon 023 LDH [Catalytic activity/Vol] 220 U/L High 135 - 214 U/L [facility] LDH SerPl-cCncon 03-08-2023 LDH [Catalytic activity/Vol] 220 U/L High 135-214 [facility] Comment on above: Order Comment: Speci men Type: BLOOD SPECIMEN Ordering Facility: [facility] Address: [address] [place], [place] [address] Performed By: #### 2 4323-8, 45004-4 #### [facility] [id number] [address] [place] [address] [place] MAGNESIUM BLDon 03-08-2023 Magnesium [Mass/Vol] 1.8 mg/dL 1.7 - 2.3 mg/dL [facility] Magnesium SerPl-mCncon 03-08 Magnesium [Mass/Vol] 1.8 mg/dL Normal 1.7-2.3 [facility] Comment on above: Order Comment: Speci men Type: BLOOD SPECIMEN Ordering Facility: [facility] Address: [address] [place] [address] Performed By: #### 2 4323-8, 85303-3 #### [facility] [id number] [address] [place] [address] PATHOLOGIST INTERPRETATION C BC/DIFFon 03-08-2023 Milk Of Lime Slaker review Bhanu (Unsp spec) [Interp] Reviewed by Sindi Cruz M.D. Normal [facility] Comment on above: Order Comment: Speci men Type: BLOOD SPECIMEN Ordering Facility: [facility] Address: [address] [place] [address] Performed By: #### S TFREV #### [facility] CLIA [id number] [address] [place] [address] [place] STAFF REVIEW, CBCDIF Leukopenia with absolute neutropenia and lymphopenia Normal [facility] Comment on above: Order Comment: Speci men Type: BLOOD SPECIMEN Ordering Facility: [facility] Address: [address] [place], [place] [address] Performed By: #### S TFREV #### [facility] CLIA [id number] [address] [place] [address] [place] RBC MORPHOLOGYon 03-08-2023 Platelets Estimate (Bld) [#/Vol] Adequate Normal [facility] Comment on above: Order Comment: Speci men Type: BLOOD SPECIMEN Ordering Facility: [facility] Address: [address] [address] Performed By: #### 5 7021-8, 68780-1 #### [facility] CLIA [id number] [address] [place] [address] [place] #### [id number], [id number] #### [facility] CLIA [id number] [address] [place] [address] [place] Polychromasia LM Ql (Bld) Slight Normal [facility] Comment on above: Order Comment: Speci men Type: BLOOD SPECIMEN Ordering Facility: [facility] Address: [address] [address] Performed By: #### 5 7021-8, 53952-5 #### [facility] CLIA [id number] [address] [place] [address] [place] #### [id number], [id number] #### [facility] CLIA [id number] [address] [place] [address] [place] RBC morphology finding Nom (Bld) Reviewed: unremarkable Normal [facility] Comment on above: Order Comment: Speci men Type: BLOOD SPECIMEN Ordering Facility: [facility] Address: [address] [place] [address] Performed By: #### 5 7021-8, 15608-0 #### [facility] CLIA [id number] [address] [place] [address] [place] #### [id number], [id number] #### [facility] CLIA [id number] [address] [place] [address] [place] RETIC COUNTon 03-08-2023 Reticulocytes (Bld) [#/Vol] 0.96841 10*3/uL 0.018 - 0.100 M/uL [facility] Retics #on 03-08-2023 Reticulocytes (Bld) [#/Vol] 0.21560 10*3/uL Normal 0.018-0.100 [facility] Comment on above: Order Comment: Speci men Type: BLOOD SPECIMEN Ordering Facility: [facility] Address: [address] [address] Performed By: #### 5 7021-8, 35260-2 #### [facility] [place] [id number] [address] [place] [address] [place] #### [id number], [id number] #### [facility] CLIA [id number] [address] [place] [address] [place] Reticulocytes (Bld) [#/Vol]o n 03-08-2023 Reticulocytes/100 RBC (Bld) 1.5 % Normal 0.4-2.0 [facility] Comment on above: Order Comment: Speci men Type: BLOOD SPECIMEN Ordering Facility: [facility] Address: [address] Performed By: #### 5 7021-8, 97236-0 #### [facility] [place] [id number] [address] [place] [address] [place] #### [id number], [id number] #### [facility] CLIA [id number] [address] [place] [address] [place] Reticulocytes/100 RBC (Bld) 1.5 % 0.4 - 2.0 % [facility] CBC W Auto Differential pane l (Bld)on 01-24-2023 Basophils (Bld) [#/Vol] 10*3/uL Normal <0.11 [facility] Comment on above: Order Comment: Speci men Type: BLOOD SPECIMEN Ordering Facility: [facility] Address: [address] [place] [address] Performed By: #### 5 7021-8, 95479-1 #### [facility] CLIA [id number] [address] [place] [address] Basophils/100 WBC (Bld) 0.7 % Normal [facility] Comment on above: Order Comment: Speci men Type: BLOOD SPECIMEN Ordering Facility: [facility] Address: [address] [address] Performed By: #### 5 7021-8, 45628-7 #### [facility] CLIA [id number] [address] [place] [address] Differential cell count method Nom (Bld) Auto Normal [facility] Comment on above: Order Comment: Speci men Type: BLOOD SPECIMEN Ordering Facility: [facility] Address: [address] [place] [address] Performed By: #### 5 7021-8, 42400-8 #### [facility] CLIA [id number] [address] [place] [address] Eosinophils (Bld) [#/Vol] 0.03 10*3/uL Normal <0.46 [facility] Comment on above: Order Comment: Speci men Type: BLOOD SPECIMEN Ordering Facility: [facility] Address: [address] [address] Performed By: #### 5 7021-8, 24835-7 #### [facility] CLIA [id number] [address] [place] [address] Eosinophils/100 WBC (Bld) 1.1 % Normal [facility] Comment on above: Order Comment: Speci men Type: BLOOD SPECIMEN Ordering Facility: [facility] Address: [address] [address] Performed By: #### 5 7021-8, 71406-6 #### [facility] CLIA [id number] [address] [place] [address] Erythrocyte distribution width (RBC) [Ratio] 13.2 % Normal 11.5-15.0 [facility] Comment on above: Order Comment: Speci men Type: BLOOD SPECIMEN Ordering Facility: [facility] Address: [address] Performed By: #### 5 7021-8, 88130-3 #### [facility] CLIA [id number] [address] [place] [address] Hematocrit (Bld) [Volume fraction] 38.5 % Normal 36.0-46.0 [facility] Comment on above: Order Comment: Speci men Type: BLOOD SPECIMEN Ordering Facility: [facility] Address: [address] [address] Performed By: #### 5 7021-8, 57914-1 #### [facility] CLIA [id number] [address] [place] [address] Hemoglobin (Bld) [Mass/Vol] 12.9 g/dL Normal 11.5-15.5 [facility] Comment on above: Order Comment: Speci men Type: BLOOD SPECIMEN Ordering Facility: [facility] Address: [address] [address] Performed By: #### 5 7021-8, 19766-2 #### [facility] CLIA [id number] [address] [place] [address] Immature granulocytes (Bld) [#/Vol] 10*3/uL Normal <0.10 [facility] Comment on above: Order Comment: Speci men Type: BLOOD SPECIMEN Ordering Facility: [facility] Address: [address] [address] Performed By: #### 5 7021-8, 35608-8 #### [facility] CLIA [id number] [address] [place] [address] Immature granulocytes/100 WBC (Bld) 0.4 % Normal [facility] Comment on above: Order Comment: Speci men Type: BLOOD SPECIMEN Ordering Facility: [facility] Address: [address] [address] Performed By: #### 5 7021-8, 29084-9 #### [facility] CLIA [id number] [address] [place] [address] Lymphocytes (Bld) [#/Vol] 0.78 10*3/uL Low 1.00-4.00 [facility] Comment on above: Order Comment: Speci men Type: BLOOD SPECIMEN Ordering Facility: [facility] Address: [address] [place] [address] Performed By: #### 5 7021-8, 14314-6 #### [facility] CLIA [id number] [address] [place] [address] Lymphocytes/100 WBC (Bld) 27.4 % Normal [facility] Comment on above: Order Comment: Speci men Type: BLOOD SPECIMEN Ordering Facility: [facility] Address: [address] [place] [address] Performed By: #### 5 7021-8, 53225-5 #### [facility] CLIA [id number] [address] [place] [address] 47394 MCH (RBC) [Entitic mass] 28.2 pg Normal 26.0-34.0 [facility] Comment on above: Order Comment: Speci men Type: BLOOD SPECIMEN Ordering Facility: [facility] Address: [address] [place] [address] Performed By: #### 5 7021-8, 84063-2 #### [facility] CLIA [id number] [address] [place] [address] MCHC (RBC) [Mass/Vol] 33.5 g/dL Normal 30.5-36.0 [facility] Comment on above: Order Comment: Speci men Type: BLOOD SPECIMEN Ordering Facility: [facility] Address: [address] [place] [address] Performed By: #### 5 7021-8, 33069-5 #### [facility] CLIA [id number] [address] [place] [address]53 MCV (RBC) [Entitic vol] 84.2 fL Normal 80.0-100.0 [facility] Comment on above: Order Comment: Speci men Type: BLOOD SPECIMEN Ordering Facility: [facility] Address: [address] Performed By: #### 5 7021-8, 30283-5 #### [facility] CLIA [id number] [address] [place] [address]662 Monocytes (Bld) [#/Vol] 0.48 10*3/uL Normal <0.87 [facility] Comment on above: Order Comment: Speci men Type: BLOOD SPECIMEN Ordering Facility: [facility] Address: [address] Performed By: #### 5 7021-8, 99028-2 #### [facility] CLIA [id number] [address] [place] [address]8217 Monocytes/100 WBC (Bld) 16.8 % Normal [facility] Comment on above: Order Comment: Speci men Type: BLOOD SPECIMEN Ordering Facility: [facility] Address: [address] Performed By: #### 5 7021-8, 08985-3 #### [facility] CLIA [id number] [address] [place] [address] Neutrophils (Bld) [#/Vol] 1.53 10*3/uL Normal 1.45-7.50 [facility] Comment on above: Order Comment: Speci men Type: BLOOD SPECIMEN Ordering Facility: [facility] Address: [address] Performed By: #### 5 7021-8, 06356-8 #### [facility] CLIA [id number] [address] [place] [address]681 Neutrophils/100 WBC (Bld) 53.6 % Normal [facility] Comment on above: Order Comment: Speci men Type: BLOOD SPECIMEN Ordering Facility: [facility] Address: [address] Performed By: #### 5 7021-8, 12393-7 #### [facility] CLIA [id number] [address] [place] [address] Nucleated RBC (Bld) [#/Vol] 10*3/uL Normal <0.01 [facility] Comment on above: Order Comment: Speci men Type: BLOOD SPECIMEN Ordering Facility: [facility] Address: [address] [address] Performed By: #### 5 7021-8, 69466-3 #### [facility] CLIA [id number] [address] [place] [address]34 Nucleated RBC/100 WBC (Bld) [Ratio] 0.0 /100 WBC Normal [facility] Comment on above: Order Comment: Speci men Type: BLOOD SPECIMEN Ordering Facility: [facility] Address: [address] [place] [address] Performed By: #### 5 7021-8, 20032-5 #### [facility] CLIA [id number] [address] [place] [address]8825 Platelet mean volume (Bld) [Entitic vol] 8.9 fL Low 9.0-12.7 [facility] Comment on above: Order Comment: Speci men Type: BLOOD SPECIMEN Ordering Facility: [facility] Address: [address] [place] [address] Performed By: #### 5 7021-8, 21090-0 #### [facility] CLIA [id number] [address] [place] [address] 13346 Platelets (Bld) [#/Vol] 178 10*3/uL Normal 150-400 [facility] Comment on above: Order Comment: Speci men Type: BLOOD SPECIMEN Ordering Facility: [facility] Address: [address] [place] [address] Performed By: #### 5 7021-8, 53128-5 #### [facility] CLIA [id number] [address] [place] [address] 18480 RBC (Bld) [#/Vol] 4.57 10*6/uL Normal 3.90-5.20 [facility] Comment on above: Order Comment: Speci men Type: BLOOD SPECIMEN Ordering [facility] Address: [address] [address] Performed By: #### 5 7021-8, 10814-3 #### [facility] CLIA [id number] [address] [place] [address] 88107 WBC (Bld) [#/Vol] 2.85 10*3/uL Low 3.70-11.00 [facility] Comment on above: Order Comment: Speci men Type: BLOOD SPECIMEN Ordering Facility: [facility] Address: [address] [address] Performed By: #### 5 7021-8, 99370-1 #### [facility] CLIA [id number] [address] [place] [address] 17020 Comprehensive metabolic 2000 panelon 01-24-2023 Albumin [Mass/Vol] 4.2 g/dL Normal 3.9-4.9 [facility] Comment on above: Order Comment: Speci men Type: BLOOD SPECIMEN Ordering Facility: [facility] Address: [address] [address] Performed By: #### 2 4323-8, 94148-5 #### [facility] CLIA [id number] [address] [place] [address] [place] ALP [Catalytic activity/Vol] 76 U/L Normal 34-123 [facility] Comment on above: Order Comment: Speci men Type: BLOOD SPECIMEN Ordering Facility: [facility] Address: [address] Performed By: #### 2 4323-8, 42606-1 #### [facility] CLIA [id number] [address] [place] [address] [place] ALT [Catalytic activity/Vol] 10 U/L Normal 7-38 [facility] Comment on above: Order Comment: Speci men Type: BLOOD SPECIMEN Ordering Facility: [facility] Address: [address] [place] [address] Performed By: #### 2 4323-8, #### [facility] [place] [id number] [address] [place] [address] [place] Anion gap [Moles/Vol] 9 mmol/L Normal 9-18 [facility] Comment on above: Order Comment: Speci men Type: BLOOD SPECIMEN Ordering Facility: [facility] Address: [address] Performed By: #### 2 432-8, #### [facility] [id number] [address] [place] [address] [place] AST [Catalytic activity/Vol] 16 U/L Normal 13-35 [facility] Comment on above: Order Comment: Speci men Type: BLOOD SPECIMEN Ordering Facility: [facility] Address: [address] [place], [place] [address] Performed By: #### 2 4322-8, #### [facility] [id number] [address] [place] [address] [place] Bilirubin [Mass/Vol] 0.7 mg/dL Normal 0.2-1.3 [facility] Comment on above: Order Comment: Speci men Type: BLOOD SPECIMEN Ordering Facility: [facility] Address: [address] [place], [place] [address] Performed By: #### 2 432-8, #### [facility] IA [id number] [address] [place] [address] [place] Calcium [Mass/Vol] 9.7 mg/dL Normal 8.5-10.2 [facility] Comment on above: Order Comment: Speci men Type: BLOOD SPECIMEN Ordering Facility: [facility] Address: [address] [place], [place] [address] Performed By: #### 2 4323-8, #### [facility] CLIA [id number] [address] [place] [address] [place] Chloride [Moles/Vol] 101 mmol/L Normal 97-105 [facility] Comment on above: Order Comment: Speci men Type: BLOOD SPECIMEN [facility] [facility] Address: [address] [place] [address] Performed By: #### 2 4323-8, 00989-5 #### [facility] [id number] [address] [place] [address] [place] CO2 [Moles/Vol] 26 mmol/L Normal 22-30 [facility] Comment on above: Order Comment: Speci men Type: BLOOD SPECIMEN [facility]ing Facility[facility] Address: [address] [place] [address] Performed By: #### 2 4323-8, 58085-2 #### [facility] [id number] [address] [place] [address] [place] Creatinine [Mass/Vol] 0.98 mg/dL High 0.58-0.96 [facility] Comment on above: Order Comment: Speci men Type: BLOOD SPECIMEN [facility]ing Facility: [facility] Address: [address] [place] [address] Performed By: #### 2 4323-8, 64137-8 #### [facility] [id number] [address] [place] [address] [place] ESTIMATED GLOMERULAR FILTRATION RATE 61 mL/min/1.73m??? Normal >=60 [facility] Comment on above: Order Comment: Speci men Type: BLOOD SPECIMEN [facility]ing Facility[facility] Address: [address] [place] [address] Result Comment: Yessenia mated Glomerular Filtration Rate (eGFR) is calculated using the 2020 CKD-EPI creatinine equation. This equation utilizes serum creatinine, sex, and age as parameters. The creatinine assay has traceable calibration to isotope dilution-mass spectrometry. Refer to KDIGO guidelines for clinical interpretation. In patients with unstable renal function, e.g. those with acute kidney injury, the eGFR may not accurately reflect actual GFR. Performed By: #### 2 4323-8, 31108-0 #### [facility] [id number] [address] [place] [address] [place] Glucose [Mass/Vol] 99 mg/dL Normal 74-99 [facility] Comment on above: Order Comment: Shar koch Type: BLOOD SPECIMEN Ordering Facility: [facility] Address: [address] [place], [place] [address] Result Comment: The [place] Diabetes Association (ADA) provides guidance for cutoff values for fasting glucose and random glucose. The ADA defines fasting as no caloric intake for at least 8 hours. Fasting plasma glucose results between 100 to 125 mg/dL indicate increased risk for diabetes (prediabetes). Fasting plasma glucose results greater than or equal to 126 mg/dL meet the criteria for diagnosis of diabetes. In the absence of unequivocal hyperglycemia, results should be confirmed by repeat testing. In a patient with classic symptoms of hyperglycemia or hyperglycemic crisis, random plasma glucose results greater than or equal to 200 mg/dL meet the criteria for diagnosis of diabetes. Reference: Standards of Medical Care in Diabetes 2016, [place] Diabetes Association. Diabetes Care. 2016.39(Suppl 1). Performed By: #### 2 4323-8, 48226-2 #### [facility] [id number] [address] [place] [address] [place] Potassium [Moles/Vol] 4.3 mmol/L Normal 3.7-5.1 [facility] Comment on above: Order Comment: Shar koch Type: BLOOD SPECIMEN [facility] Address: [address] [place] [address] Performed By: #### 2 4323-8, #### [facility] [id number] [address] [place] [address] [place] Protein [Mass/Vol] 7.4 g/dL Normal 6.3-8.0 [facility] Comment on above: Order Comment: Shar koch Type: BLOOD SPECIMEN [facility] Address: [address] [place], [place] [address] Performed By: #### 2 4323-8, 38805-7 #### [facility] [id number] [address] [place] [address] [place] Sodium [Moles/Vol] 136 mmol/L Normal 136-144 [facility] Comment on above: Order Comment: Speci men Type: BLOOD SPECIMEN [facility] Address: [address] [place] [address] Performed By: #### 2 4323-8, 24673-7 #### [facility] [id number] [address] [place] [address] [place] Urea nitrogen [Mass/Vol] 19 mg/dL Normal 7-21 [facility] Comment on above: Order Comment: Speci men Type: BLOOD SPECIMEN [facility] Address: [address] [place] [address] Performed By: #### 2 4323-8, 66533-3 #### [facility] [id number] [address] [place] [address] [place] Retics #on 01-24-2023 Reticulocytes (Bld) [#/Vol] 0.35872 10*3/uL Normal 0.018-0.100 [facility] Comment on above: Order Comment: Speci men Type: BLOOD SPECIMEN [facility] Address: [address] [place], [place] [address] Performed By: #### 5 7021-8, 15384-1 #### [facility] [place] [id number] [address] [place] [address] Reticulocytes (Bld) [#/Vol]o n 01-24-2023 Reticulocytes/100 RBC (Bld) 1.2 % Normal 0.4-2.0 [facility] Comment on above: Order Comment: Speci men Type: BLOOD SPECIMEN [facility] Address: [address] [place], [place] [address] Performed By: #### 5 7021-8, 38129-3 #### [facility] CLIA [id number] [address] [place], [place] [id number] CBC AUTO DIFFon 12-27-2022 BASO # 0.0 103/ul Normal 0.0-0.1 [facility] Comment on above: Performed By: #### C BC #### [facility] [address] [place] [address] Dr. Yoli Mccarty Basophils/100 WBC (Bld) 0.8 % Normal 0.2-2.0 [facility] Comment on above: Performed By: #### C BC #### [facility] [address] [place] [address] Dr. Yoli Mccarty EO # 0.1 103/ul Normal 0.0-0.7 [facility] Comment on above: Performed By: #### C BC #### [facility] [address] [place] [address] Dr. Yoli Mccarty Eosinophils/100 WBC (Bld) 2.1 % Normal 0.9-7.0 [facility] Comment on above: Performed By: #### C BC #### [facility] [address] [place] [address] Dr. Yoli Mccarty Erythrocyte distribution width (RBC) [Ratio] 13.2 % Normal 11.0-15.0 [facility] Comment on above: Performed By: #### C BC #### [facility] [address] [place] [address] Dr. Yoli Mccarty Hematocrit (Bld) [Volume fraction] 35.6 % Critically low 36.0-48.0 [facility] Comment on above: Performed By: #### C BC #### [facility] [address] [place] [address] Dr. Yoli Mccarty Hemoglobin (Bld) [Mass/Vol] 12.0 g/dL Normal 12.0-16.0 [facility] Comment on above: Performed By: #### C BC #### [facility] [address] [place] [address] Dr. Yoli Mccarty IG # 0.00 10e3/ul Normal 0.00-0.03 [facility] Comment on above: Performed By: #### C BC #### [facility] [address] [place] [address] Dr. Yoli Mccarty IG % 0.0 % Normal 0.0-0.5 [facility] Comment on above: Performed By: #### C BC #### [facility] [address] [place] [address] Dr. Yoli Mccarty LYMPH # 1.0 103/ul Critically low 1.2-3.8 [facility] Comment on above: Performed By: #### C BC #### [facility] [address] [place] [address] Dr. Yoli Mccarty Lymphocytes/100 WBC (Bld) 43.5 % Normal 20.5-60.0 [facility] Comment on above: Performed By: #### C BC #### [facility] [address] [place] [address] Dr. Yoli Mccarty MANUAL DIFF REQ NO Normal [facility] Comment on above: Performed By: #### C BC #### [facility] [address] [place] [address] Dr. Yoli Mccarty MCH (RBC) [Entitic mass] 27.7 pg Normal 26.7-34.0 [facility] Comment on above: Performed By: #### C BC #### [facility] [address] [place] [address] Dr. Yoli Mccarty MCHC (RBC) [Mass/Vol] 33.7 g/dL Normal 29.9-35.2 [facility] Comment on above: Performed By: #### C BC #### [facility] [address] [place] [address] Dr. Yoli Mccarty MCV (RBC) [Entitic vol] 82.2 fL Normal 81.0-99.0 [facility] Comment on above: Performed By: #### C BC #### [facility] [address] [place] [address] Dr. Yoli Mccarty MONO # 0.4 103/ul Normal 0.3-0.8 [facility] Comment on above: Performed By: #### C BC #### [facility] [address] [place] [address] Dr. Yoli Mccarty Monocytes/100 WBC (Bld) 17.2 % Critically high 1.7-12.0 [facility] Comment on above: Performed By: #### C BC #### [facility] [address] [place] [address] Dr. Yoli Mccarty NEUT # 0.9 103/ul Critically low 1.4-6.5 [facility] Comment on above: Performed By: #### C BC #### [facility] [address] [place] [address] Dr. Yoli Mccarty Neutrophils/100 WBC (Bld) 36.4 % Critically low 43.0-75.0 [facility] Comment on above: Performed By: #### C BC #### [facility] [address] [place] [address] Dr. Yoli Mccarty Platelet mean volume (Bld) [Entitic vol] 8.6 fL Critically low 9.5-13.5 [facility] Comment on above: Performed By: #### C BC #### [facility] [address] [place] [address] Dr. Yoli Mccarty PLT 168 103/ul Normal 150-450 [facility] Comment on above: Performed By: #### C BC #### [facility] [address] [place] [address] Dr. Yoli Mccarty RBC 4.33 106/ul Normal 4.20-5.40 [facility] Comment on above: Performed By: #### C BC #### [facility] [address] [place] [address] Dr. Yoli Mccarty WBC 2.4 103/ul Critically low 4.0-11.0 [facility] Comment on above: Performed By: #### C BC #### [facility] [address] [place] [address] Dr. Yoli Mccarty PROF 14(COMP METB)on 023 Albumin [Mass/Vol] 3.5 g/dL Normal 3.4-5.0 [facility] Comment on above: Performed By: #### C MP #### [facility] [address] [place] [address] Dr. Yoli Mccarty Albumin/Globulin [Mass ratio] 0.9 {ratio} Normal [facility] Comment on above: Performed By: #### C MP #### [facility] [address] [address] [address] Yoli Mccarty ALP [Catalytic activity/Vol] 73 U/L Normal 46-116 [facility] Comment on above: Performed By: #### C MP #### [facility] [address] [place] [address] Dr. Yoli Mccarty ALT [Catalytic activity/Vol] 20 U/L Normal 14-59 [facility] Comment on above: Performed By: #### C MP #### [facility] [address] [place] [address] Dr. Yoli Mccarty Anion gap [Moles/Vol] 8.4 mmol/L Normal [facility] Comment on above: Performed By: #### C MP #### [facility] [address] [place] [address] Dr. Yoli Mccarty AST [Catalytic activity/Vol] 16 U/L Normal 15-37 [facility] Comment on above: Performed By: #### C MP #### [facility] [address] [place] [address] Dr. Yoli Mccarty Bilirubin [Mass/Vol] 0.6 mg/dL Normal 0.2-1.0 [facility] Comment on above: Performed By: #### C MP #### [facility] [address] [place] [address] Dr. Yoli Mccarty Calcium [Mass/Vol] 9.3 mg/dL Normal 8.5-10.1 [facility] Comment on above: Performed By: #### C MP #### [facility] [address] [place] [address] Dr. Yoli Mccarty Chloride [Moles/Vol] 104 mmol/L Normal 98-107 [facility] Comment on above: Performed By: #### C MP #### [facility] [address] [address] [address] Yoli Mccarty CO2 [Moles/Vol] 28.9 mmol/L Normal 21.0-32.0 [facility] Comment on above: Performed By: #### C MP #### [facility] [address] [address] [address] Yoli Mccarty Creatinine [Mass/Vol] 0.87 mg/dL Normal 0.55-1.02 [facility] Comment on above: Performed By: #### C MP #### [facility] [address] [address] [address] Yoli Mccarty EGFR-AF [place] >60 Normal >=60 [facility] Comment on above: Performed By: #### C MP #### [facility] [address] [place] [address] Dr. Yoli Mccarty EGFR-NON AF [place] >60 Normal >=60 [facility] Comment on above: Performed By: #### C MP #### [facility] [address] [place] [address] Dr. Yoli Mccarty Globulin (S) [Mass/Vol] 4.0 g/dL Normal [facility] Comment on above: Performed By: #### C MP #### [facility] [address] [place] [address] Dr. Yoli Mccarty Glucose [Mass/Vol] 95 mg/dL Normal 74-106 [facility] Comment on above: Performed By: #### C MP #### [facility] [address] [address] [address] Yoli Mccarty Potassium [Moles/Vol] 4.3 mmol/L Normal 3.5-5.1 [facility] Comment on above: Performed By: #### C MP #### [facility] [address] [place] [address] Dr. Yoli Mccarty Protein [Mass/Vol] 7.5 g/dL Normal 6.4-8.2 [facility] Comment on above: Performed By: #### C MP #### [facility] [address] [place] [address] Dr. Yoli Mccarty Sodium [Moles/Vol] 137 mmol/L Normal 136-145 [facility] Comment on above: Performed By: #### C MP #### [facility] [address] [address] [address] Yoli Mccarty Urea nitrogen [Mass/Vol] 16.0 mg/dL Normal 7.0-18.0 [facility] Comment on above: Performed By: #### C MP #### [facility] [address] [address] [address] Yoli Mccarty Urea nitrogen/Creatinine [Mass ratio] 18.4 mg/mg Normal [facility] Comment on above: Performed By: #### C MP #### [facility] [address] [place] [address] Dr. Yoli Mccarty SED RATE [facility] 2022 SED RATE 30 mm/hr Normal <=30 [facility] Comment on above: Performed By: #### S EDR #### [facility] [address] [place] [address] Dr. Yoli Mccarty CBC W Auto Differential pane l (Bld)on 12-16-2022 Basophils (Bld) [#/Vol] 10*3/uL Normal <0.11 [facility] Comment on above: Order Comment: Speci men Type: BLOOD SPECIMEN [facility] Address: [address] [address] Performed By: #### 5 7021-8, 13943-3 #### [facility] CLIA [id number] [address] [place] [address] Basophils/100 WBC (Bld) 0.7 % Normal [facility] Comment on above: Order Comment: Speci men Type: BLOOD SPECIMEN [facility] Address: [address] [address] Performed By: #### 5 7021-8, 59088-0 #### [facility] CLIA [id number] [address] [place] [address] Differential cell count method Nom (Bld) Auto Normal [facility] Comment on above: Order Comment: Speci men Type: BLOOD SPECIMEN [facility] Address: [address] Performed By: #### 5 7021-8, 92116-0 #### [facility] CLIA [id number] [address] [place] [address] Eosinophils (Bld) [#/Vol] 0.06 10*3/uL Normal <0.46 [facility] Comment on above: Order Comment: Speci men Type: BLOOD SPECIMEN [facility] Address: [address] [address] Performed By: #### 5 7021-8, 29316-1 #### [facility] CLIA [id number] [address] [place] [address] Eosinophils/100 WBC (Bld) 2.0 % Normal [facility] Comment on above: Order Comment: Speci men Type: BLOOD SPECIMEN [facility] Address: [address] Performed By: #### 5 7021-8, 56281-5 #### [facility] CLIA [id number] [address] [place] [address] Erythrocyte distribution width (RBC) [Ratio] 13.3 % Normal 11.5-15.0 [facility] Comment on above: Order Comment: Speci men Type: BLOOD SPECIMEN [facility] Address: [address] Performed By: #### 5 7021-8, 14000-3 #### [facility] CLIA [id number] [address] [place] [address] Hematocrit (Bld) [Volume fraction] 37.2 % Normal 36.0-46.0 [facility] Comment on above: Order Comment: Speci men Type: BLOOD SPECIMEN [facility] Address: [address] Performed By: #### 5 7021-8, 56605-6 #### [facility] CLIA [id number] [address] [place] [address] Hemoglobin (Bld) [Mass/Vol] 12.5 g/dL Normal 11.5-15.5 [facility] Comment on above: Order Comment: Speci men Type: BLOOD SPECIMEN [facility] Address: [address] [place] [address] Performed By: #### 5 7021-8, 44277-6 #### [facility] CLIA [id number] [address] [place] [address] Immature granulocytes (Bld) [#/Vol] 10*3/uL Normal <0.10 [facility] Comment on above: Order Comment: Speci men Type: BLOOD SPECIMEN [facility] Address: [address] [place] [address] Performed By: #### 5 7021-8, 65907-5 #### [facility] CLIA [id number] [address] [place] [address] Immature granulocytes/100 WBC (Bld) 0.3 % Normal [facility] Comment on above: Order Comment: Speci men Type: BLOOD SPECIMEN [facility] Address: [address] [place] [address] Performed By: #### 5 7021-8, 73067-4 #### [facility] CLIA [id number] [address] [place] [address]237 Lymphocytes (Bld) [#/Vol] 1.21 10*3/uL Normal 1.00-4.00 [facility] Comment on above: Order Comment: Speci men Type: BLOOD SPECIMEN [facility] Address: [address] [place] [address] Performed By: #### 5 7021-8, 63283-7 #### [facility] CLIA [id number] [address] [place] [address] Lymphocytes/100 WBC (Bld) 41.0 % Normal [facility] Comment on above: Order Comment: Speci men Type: BLOOD SPECIMEN [facility] Address: [address] [address] Performed By: #### 5 7021-8, 46666-6 #### [facility] CLIA [id number] [address] [place] [address]61 MCH (RBC) [Entitic mass] 28.1 pg Normal 26.0-34.0 [facility] Comment on above: Order Comment: Speci men Type: BLOOD SPECIMEN [facility] Address: [address] [address] Performed By: #### 5 7021-8, 01482-5 #### [facility] CLIA [id number] [address] [place] [address] 61460 MCHC (RBC) [Mass/Vol] 33.6 g/dL Normal 30.5-36.0 [facility] Comment on above: Order Comment: Speci men Type: BLOOD SPECIMEN [facility] Address: [address] Performed By: #### 5 7021-8, 53687-5 #### [facility] CLIA [id number] [address] [place] [address]76[address] MCV (RBC) [Entitic vol] 83.6 fL Normal 80.0-100.0 [facility] Comment on above: Order Comment: Speci men Type: BLOOD SPECIMEN [facility] Address: [address] Performed By: #### 5 7021-8, 60393-2 #### [facility] CLIA [id number] [address] [place] [address] 48475 Monocytes (Bld) [#/Vol] 0.52 10*3/uL Normal <0.87 [facility] Comment on above: Order Comment: Speci men Type: BLOOD SPECIMEN [facility] Address: [address] [address] Performed By: #### 5 7021-8, 35577-7 #### [facility] CLIA [id number] [address] [place] [address] 50784 Monocytes/100 WBC (Bld) 17.6 % Normal [facility] Comment on above: Order Comment: Speci men Type: BLOOD SPECIMEN [facility] Address: [address] [place] [address] Performed By: #### 5 7021-8, 68602-6 #### [facility] CLIA [id number] [address] [place] [address] 26293 Neutrophils (Bld) [#/Vol] 1.13 10*3/uL Low 1.45-7.50 [facility] Comment on above: Order Comment: Speci men Type: BLOOD SPECIMEN [facility]ing [facility] Address: [address] [address] Performed By: #### 5 7021-8, 33725-2 #### [facility] CLIA [id number] [address] [place] [address] 84597 Neutrophils/100 WBC (Bld) 38.4 % Normal [facility] Comment on above: Order Comment: Speci men Type: BLOOD SPECIMEN [facility]ing [facility] Address: [address] [place] [address] Performed By: #### 5 7021-8, 32613-3 #### [facility] CLIA [id number] [address] [place] [address] 33682 Nucleated RBC (Bld) [#/Vol] 10*3/uL Normal <0.01 [facility] Comment on above: Order Comment: Speci men Type: BLOOD SPECIMEN [facility]ing [facility] Address: [address] [place] [address] Performed By: #### 5 7021-8, 96935-0 #### [facility] CLIA [id number] [address] [place] [address] 10962 Nucleated RBC/100 WBC (Bld) [Ratio] 0.0 /100 WBC Normal [facility] Comment on above: Order Comment: Speci men Type: BLOOD SPECIMEN [facility]ing [facility] Address: [address] Performed By: #### 5 7021-8, 25648-0 #### [facility] CLIA [id number] [address] [place] [address] 46871 Platelet mean volume (Bld) [Entitic vol] 8.9 fL Low 9.0-12.7 [facility] Comment on above: Order Comment: Speci men Type: BLOOD SPECIMEN Ordering [facility] Address: [address] [address] Performed By: #### 5 7021-8, 65540-9 #### [facility] CLIA [id number] [address] [place] [address] 70255 Platelets (Bld) [#/Vol] 173 10*3/uL Normal 150-400 [facility] Comment on above: Order Comment: Speci men Type: BLOOD SPECIMEN Ordering [facility] Address: [address] Performed By: #### 5 7021-8, 79428-4 #### [facility] CLIA [id number] [address] [place] [address] 72999 RBC (Bld) [#/Vol] 4.45 10*6/uL Normal 3.90-5.20 [facility] Comment on above: Order Comment: Speci men Type: BLOOD SPECIMEN [facility]ing [facility] Address: [address] Performed By: #### 5 7021-8, 34681-5 #### [facility] CLIA [id number] [address] [place] [address] 33391 WBC (Bld) [#/Vol] 2.95 10*3/uL Low 3.70-11.00 [facility] Comment on above: Order Comment: Speci men Type: BLOOD SPECIMEN [facility] Address: [address] [address] Performed By: #### 5 7021-8, 03322-7 #### [facility] CLIA [id number] [address] [place] [address] 34758 Comprehensive metabolic 2000 panelon 12-16-2022 Albumin [Mass/Vol] 4.2 g/dL Normal 3.9-4.9 [facility] Comment on above: Order Comment: Speci men Type: BLOOD SPECIMEN Ordering Facility: [facility] Address: [address] [address] Performed By: #### 5 7021-8, 26706-3 #### [facility] CLIA [id number] [address] [place] [address] 33745 ALP [Catalytic activity/Vol] 76 U/L Normal 34-123 [facility] Comment on above: Order Comment: Speci men Type: BLOOD SPECIMEN Ordering Facility: [facility] Address: [address] [address] Performed By: #### 5 7021-8, 67252-1 #### [facility] CLIA [id number] [address] [place] [address] 05222 ALT [Catalytic activity/Vol] 10 U/L Normal 7-38 [facility] Comment on above: Order Comment: Speci men Type: BLOOD SPECIMEN Ordering Facility: [facility] Address: [address] [address] Performed By: #### 5 7021-8, 74056-2 #### [facility] CLIA [id number] [address] [place] [address] 33304 Anion gap [Moles/Vol] 8 mmol/L Low 9-18 [facility] Comment on above: Order Comment: Speci men Type: BLOOD SPECIMEN Ordering Facility: [facility] Address: [address] [address] Performed By: #### 5 7021-8, 65062-4 #### [facility] CLIA [id number] [address] [place] [address] 55373 AST [Catalytic activity/Vol] 18 U/L Normal 13-35 [facility] Comment on above: Order Comment: Speci men Type: BLOOD SPECIMEN Ordering Facility: [facility] Address: [address] [place] [address] Performed By: #### 5 7021-8, 53983-3 #### [facility] CLIA [id number] [address] [place] [address] 05565 Bilirubin [Mass/Vol] 0.6 mg/dL Normal 0.2-1.3 [facility] Comment on above: Order Comment: Speci men Type: BLOOD SPECIMEN Ordering Facility: [facility] Address: [address] [place] [address] Performed By: #### 5 7021-8, 82987-8 #### [facility] CLIA [id number] [address] [place] [address] 09241 Calcium [Mass/Vol] 9.6 mg/dL Normal 8.5-10.2 [facility] Comment on above: Order Comment: Speci men Type: BLOOD SPECIMEN Ordering Facility: [facility] Address: [address] [place] [address] Performed By: #### 5 7021-8, 89373-1 #### [facility] CLIA [id number] [address] [place] [address] 97977 Chloride [Moles/Vol] 104 mmol/L Normal 97-105 [facility] Comment on above: Order Comment: Speci men Type: BLOOD SPECIMEN Ordering Facility: [facility] Address: [address] [place] [address] Performed By: #### 5 7021-8, 39194-5 #### [facility] CLIA [id number] [address] [place] [address] 81972 CO2 [Moles/Vol] 27 mmol/L Normal 22-30 [facility] Comment on above: Order Comment: Speci men Type: BLOOD SPECIMEN Ordering Facility: [facility] Address: [address] [place], [place] [address], [place] [address] Performed By: #### 5 7021-8, 46232-1 #### [facility] CLIA [id number] [address] [place] [address] 23566 Creatinine [Mass/Vol] 0.95 mg/dL Normal 0.58-0.96 [facility] Comment on above: Order Comment: Speci men Type: BLOOD SPECIMEN Ordering Facility: [facility] Address: [facility] [address] Performed By: #### 5 7021-8, 42896-1 #### [facility] CLIA [id number] [address] [place] [address] 94746 ESTIMATED GLOMERULAR FILTRATION RATE 63 mL/min/1.73m??? Normal >=60 [facility] Comment on above: Order Comment: Speci men Type: BLOOD SPECIMEN Ordering Facility: [facility] Address: [address] [address] Result Comment: Yessenia mated Glomerular Filtration Rate (eGFR) is calculated using the 2020 CKD-EPI creatinine equation. This equation utilizes serum creatinine, sex, and age as parameters. The creatinine assay has traceable calibration to isotope dilution-mass spectrometry. Refer to KDIGO guidelines for clinical interpretation. In patients with unstable renal function, e.g. those with acute kidney injury, the eGFR may not accurately reflect actual GFR. Performed By: #### 5 7021-8, 75147-0 #### [facility] CLIA [id number] [address] [place] [address] 49026 Glucose [Mass/Vol] 99 mg/dL Normal 74-99 [facility] Comment on above: Order Comment: Speci men Type: BLOOD SPECIMEN Ordering Facility: [facility] Address: [address] Result Comment: The [place] Diabetes Association (ADA) provides guidance for cutoff values for fasting glucose and random glucose. The ADA defines fasting as no caloric intake for at least 8 hours. Fasting plasma glucose results between 100 to 125 mg/dL indicate increased risk for diabetes (prediabetes). Fasting plasma glucose results greater than or equal to 126 mg/dL meet the criteria for diagnosis of diabetes. In the absence of unequivocal hyperglycemia, results should be confirmed by repeat testing. In a patient with classic symptoms of hyperglycemia or hyperglycemic crisis, random plasma glucose results greater than or equal to 200 mg/dL meet the criteria for diagnosis of diabetes. Reference: Standards of Medical Care in Diabetes 2016, [place] Diabetes Association. Diabetes Care. 2016.39(Suppl 1). Performed By: #### 5 7021-8, 14898-6 #### [facility] CLIA [id number] [address] [place] [address] 13037 Potassium [Moles/Vol] 4.5 mmol/L Normal 3.7-5.1 [facility] Comment on above: Order Comment: Speci men Type: BLOOD SPECIMEN Ordering Facility: [facility] Address: [address] [place] [address] Performed By: #### 5 7021-8, 82828-6 #### [facility] CLIA [id number] [address] [place] [address] 02857 Protein [Mass/Vol] 7.2 g/dL Normal 6.3-8.0 [facility] Comment on above: Order Comment: Speci men Type: BLOOD SPECIMEN Ordering Facility: [facility] Address: [address] [place] [address] Performed By: #### 5 7021-8, 69227-3 #### [facility] CLIA [id number] [address] [place] [address] 44324 Sodium [Moles/Vol] 139 mmol/L Normal 136-144 [facility] Comment on above: Order Comment: Speci men Type: BLOOD SPECIMEN Ordering Facility: [facility] Address: [address] [place] [address] Performed By: #### 5 7021-8, 96739-6 #### [facility] CLIA [id number] [address] [place] [address] 91817 Urea nitrogen [Mass/Vol] 20 mg/dL Normal 7-21 [facility] Comment on above: Order Comment: Speci men Type: BLOOD SPECIMEN Ordering Facility: [facility] Address: [address] [id number] Performed By: #### 5 7021-8, 89176-3 #### [facility] CLIA [id number] [address] [place] [address] 22071 Retics #on 12-16-2022 Reticulocytes (Bld) [#/Vol] 0.17797 10*3/uL Normal 0.018-0.100 [facility] Comment on above: Order Comment: Speci men Type: BLOOD SPECIMEN Ordering Facility: [facility] Address: [address] [address] Performed By: #### 5 7021-8, 85390-6 #### [facility] CLIA [id number] [address] [place] [address] 19250 Reticulocytes (Bld) [#/Vol]o n 12-16-2022 Reticulocytes/100 RBC (Bld) 1.6 % Normal 0.4-2.0 [facility] Comment on above: Order Comment: Speci men Type: BLOOD SPECIMEN Ordering Facility: [facility] Address: [address] [address] Performed By: #### 5 7021-8, 50861-1 #### [facility] CLIA [id number] [address] [place] [address] 20759 PAP ACOG PANEL 2: 30 to 65on 11-11-2022 . . Normal [facility] Comment on above: Result Comment: Perf ormed at: [facility] Performed By: #### 4 [id number] ####[facility] [address] [address]DrHoracio Mccarty Age Gdln ACOG Testing Comment [facility] Comment on above: Result Comment: <21 or >65 or no age provided Performed By: #### 4 [id number] ####[facility] [id number] [address]Dr. Yoli Mccarty DIAGNOSIS: Comment Normal [facility] Comment on above: Result Comment: NEGA TIVE FOR INTRAEPITHELIAL LESION OR MALIGNANCY. Performed at: [facility] Performed By: #### 4 [id number] ####[facility] [id number] [address]DrHoracio Mccarty Methodology: Comment Normal [facility] Comment on above: Result Comment: This liquid based ThinPrep(R) pap test was screened with the use of an image guided system. Performed at: [facility] Performed By: #### 4 [id number] ####[facility] [address] [place], [place] [address]DrHoracio Mccarty Note: Comment Normal [facility] Comment on above: Result Comment: The Pap smear is a screening test designed to aid in the detection of premalignant and malignant conditions of the uterine cervix. It is not a diagnostic procedure and should not be used as the sole means of detecting cervical cancer. Both false-positive and false-negative reports do occur. . Performed at: [facility] Performed By: #### 4 [id number] ####[facility] [address] [place], [place] [address]DrHoracio Mccarty Performed by: Comment Normal [facility] Comment on above: Result Comment: Tavon Heredia, Descriptive Catalog Librarian (ASCP) Performed at: [facility] Performed By: #### 4 [id number] ####[facility] [address] [place], [place] [address]DrHoracio Mccarty Specimen adequacy: Comment Normal [facility] Comment on above: Result Comment: Sati sfactory for evaluation. No endocervical component is identified. Performed at: [facility] Performed By: #### 4 [id number] ####[facility] [address] [place], [place] [address]DrHoracio Mccarty CBC W Auto Differential pane l (Bld)on 10-26-2022 Basophils (Bld) [#/Vol] 0.00 10*3/uL <0.11 k/uL [facility] Basophils/100 WBC (Bld) 0.0 % [facility] Differential cell count method Nom (Bld) Manual [facility] Eosinophils (Bld) [#/Vol] 0.02 10*3/uL <0.46 k/uL [facility] Eosinophils/100 WBC (Bld) 1.0 % [facility] Erythrocyte distribution width (RBC) [Ratio] 13.5 % 11.5 - 15.0 % [facility] Hematocrit (Bld) [Volume fraction] 37.1 % 36.0 - 46.0 % [facility] Hemoglobin (Bld) [Mass/Vol] 12.5 g/dL 11.5 - 15.5 g/dL [facility] Lymphocytes (Bld) [#/Vol] 1.04 10*3/uL 1.00 - 4.00 k/uL [facility] Lymphocytes/100 WBC (Bld) 59.0 % [facility] MCH (RBC) [Entitic mass] 28.3 pg 26.0 - 34.0 pg [facility] MCHC (RBC) [Mass/Vol] 33.7 g/dL 30.5 - 36.0 g/dL [facility] MCV (RBC) [Entitic vol] 83.9 fL 80.0 - 100.0 fL [facility] Monocytes (Bld) [#/Vol] 0.33 10*3/uL <0.87 k/uL [facility] Monocytes/100 WBC (Bld) 19.0 % [facility] Neutrophils (Bld) [#/Vol] 0.37 10*3/uL Low 1.45 - 7.50 k/uL [facility] Neutrophils/100 WBC (Bld) 21.0 % [facility] Nucleated RBC (Bld) [#/Vol] <0.01 k/uL [facility] Nucleated RBC/100 WBC (Bld) [Ratio] 0.0 /100 WBC [facility] Ovalocytes LM Ql (Bld) Few [facility] Platelet mean volume (Bld) [Entitic vol] 8.8 fL Low 9.0 - 12.7 fL [facility] Platelets (Bld) [#/Vol] 145 10*3/uL Low 150 - 400 k/uL [facility] Platelets Estimate (Bld) [#/Vol] Decreased [facility] RBC (Bld) [#/Vol] 4.42 10*6/uL 3.90 - 5.2 0 m/uL [facility] Red Cell Morph Reviewed: see result s of individual morphologies [facility] WBC (Bld) [#/Vol] 1.76 10*3/uL Low 3.70 - 11. 00 k/uL [facility] Comprehensive metabolic 2000 panelon 12-21-2022 Albumin [Mass/Vol] 3.9 g/dL 3.9 - 4.9 g/dL [facility] ALP [Catalytic activity/Vol] 71 U/L 34 - 123 U/L [facility] ALT [Catalytic activity/Vol] 13 U/L 7 - 38 U/L [facility] Anion gap [Moles/Vol] 7 mmol/L Low 9 - 18 mmol/L [facility] AST [Catalytic activity/Vol] 17 U/L 13 - 35 U/L [facility] Bilirubin [Mass/Vol] 0.5 mg/dL 0.2 - 1.3 mg/dL [facility] Calcium [Mass/Vol] 9.2 mg/dL 8.5 - 10. 2 mg/dL [facility] Chloride [Moles/Vol] 104 mmol/L 97 - 105 mmol/L [facility] CO2 [Moles/Vol] 27 mmol/L 22 - 30 mmol/L [facility] Creatinine [Mass/Vol] 0.96 mg/dL 0.58 - 0.96 mg/dL [facility] Estimated Glomerular Filtration Rate 63 mL/min/1.73m >=60 mL/min/1.73m [facility] Glucose [Mass/Vol] 94 mg/dL 74 - 99 mg/dL [facility] Potassium [Moles/Vol] 4.5 mmol/L 3.7 - 5.1 mmol/L [facility] Protein [Mass/Vol] 7.1 g/dL 6.3 - 8.0 g/dL [facility] Sodium [Moles/Vol] 138 mmol/L 136 - 144 mmol/L [facility] Urea nitrogen [Mass/Vol] 16 mg/dL 7 - 21 mg/dL [facility] MAGNESIUM BLDon 10-26-2022 Magnesium [Mass/Vol] 2.1 mg/dL 1.7 - 2.3 mg/dL [facility] RETIC COUNTon 10-26-2022 Reticulocytes (Bld) [#/Vol] 0.11140 10*3/uL 0.018 - 0.100 M/uL [facility] Reticulocytes (Bld) [#/Vol]o n 10-26-2022 Reticulocytes/100 RBC (Bld) 1.7 % 0.4 - 2.0 % [facility] MG MAMM SCREEN 3D JAVIER CADon 10-25-2022 MG MAMM SCREEN 3D JAVIER CAD Patient: STEFAN LOYD Exam Date: 10/25/2022 : 1950 Gender:F Ordering : DR JUNO MCFADDEN M.D. Admission #: [id number] Family : Order #: [id number] CLICK HERE TO VIEW EXAM RADIOLOGY REPORT PROCEDURE: MAMMOGRAM SCREENING 3D BILATERAL CAD COMPARISON: MG MAMM SCREEN JAVIER W CAD, 09/03/2020. MG MAMM SCREEN JAVIER W CAD, 07/18/2019. DIGITIZED_MAMMO, 06/18/2007. MG MAMM SCREEN 3D JAVIER CAD, 09/17/2021. INDICATIONS: Screening mammography Calculator Name NCI Breast Cancer Risk Assessment Tool 5 Year Breast Cancer Risk 2.40% Lifetime Breast Cancer Risk 5.90% Personal Breast Cancer No Personal Ovarian Cancer No Treatments None Family Cancers Grandmother-paternal with breast cancer at age 60; Father with lung cancer at age 67. LOCATION: [facility] BREAST COMPOSITION: Heterogeneously dense,which may obscure small masses. FINDINGS: DIAGNOSTIC CATEGORY 2--BENIGN FINDING: RIGHT BREAST: No significant suspicious finding. Scattered benign-appearing nodules are present. No significant change has occurred. LEFT BREAST: No significant suspicious finding. Scattered benign-appearing nodules are present. No significant change has occurred. RECOMMENDATIONS: ROUTINE MAMMOGRAM AND CLINICAL EVALUATION IN 12 MONTHS. PLEASE NOTE: A NORMAL MAMMOGRAM DOES NOT EXCLUDE THE POSSIBILITY OF BREAST CANCER. A CLINICALLY SUSPICIOUS PALPABLE LUMP SHOULD BE BIOPSIED. Dictated by: Kinga Nobles M.D. on 10/26/2022 at 10:19 Approved by: Kinga Nobles M.D. on 10/26/2022 at 10:26 Normal [facility] XR DEXA BONE DENSITYon 10-25 XR DEXA BONE DENSITY EXAMINATION: XR DEXA BONE DENSITY, 10/25/2022 3:15 PM EST HISTORY: Primary ovarian failure COMPARISON: DEXA bone densitometry 09/03/2020 TECHNIQUE: Dual-energy X-ray absorptiometry (DEXA) bone density study performed for the axial skeleton. FINDINGS: SPINE ANALYSIS: Average bone mineral density is 1.44 g/cm2. T-score (standard deviation relative to young adult mean): 1.9 . +3.2% change since prior study. HIP ANALYSIS: Lowest bone mineral density is within the right femoral neck, 0.898 g/cm2. T-score (standard deviation relative to young adult mean): -1.0 . +4.0% change since prior study. IMPRESSION: World [employer] Classification: Normal - Low Fracture Risk Electronically authenticated by: KINGA NOBLES Date: 2022-10-25 15:59 Normal [facility] HERPES SIMPLEX VIRUS (HSV) C ULTUREon 2022 HSV Culture/Type Comment Abnormal [facility] Comment on above: Result Comment: Posi tive for Herpes simplex virus type-2. Typing was confirmed by monoclonal antibody microscopic immunofluorescence. Performed By: #### H SVCUL ####[facility] [id number] [address]Dr. Yoli Mccarty VAGINITIS/VAGINOSIS DNA PROB Enrique 07-29-2022 Kiley species Negative Normal Negative [facility] Comment on above: Performed By: #### V AGINT #### [facility] [address] [place] [address] Dr. Yoli Mccarty Gardnerella vaginalis Negative Normal Negative [facility] Comment on above: Performed By: #### V AGINT #### [facility] [address] [place] [address] Dr. Yoli Mccarty Trichomonas vaginalis Negative Normal Negative [facility] Comment on above: Performed By: #### V AGINT #### [facility] [address] [address] [address] Yoli Mccarty CBC W MANUAL DIFFon 07-20-20 22 ATYPICAL LYMPH # Normal [facility] Comment on above: Performed By: #### C BCMAN #### [facility] [address] [address] [address] Yoli Mccarty ATYPICAL LYMPH % Normal [facility] Comment on above: Performed By: #### C BCMAN #### [facility] [address] [place] [address] Dr. Yoli Mccarty BAND # Normal 0.0-0.3 [facility] Comment on above: Performed By: #### C BCMAN #### [facility] [address] [place] [address] Dr. Yoli Mccarty BAND % Normal 0-5 [facility] Comment on above: Performed By: #### C BCMAN #### [facility] [address] [place] [address] Dr. Yoli Mccarty BASOM # 0.02 103/ul Normal 0.00-0.10 [facility] Comment on above: Performed By: #### C BCMAN #### [facility] [address] [place] [address] Dr. Yoli Mccarty BASOM % 1.0 % Normal 0.2-2.0 [facility] Comment on above: Performed By: #### C BCMAN #### [facility] [address] [place] [address] Dr. Yoli Mccarty BLAST # Normal [facility] Comment on above: Performed By: #### C BCAZAR #### [facility] [address] [place] [address] Dr. Yoli Mccarty BLAST % Normal [facility] Comment on above: Performed By: #### C BCAZAR #### [facility] [address] [place] [address] Dr. Yoli Mccarty CORRECTED WBC Normal 4.0-11.0 [facility] Comment on above: Performed By: #### C BCAZAR #### [facility] [address] [place] [address] Dr. Yoli Mccarty EOS # 0.05 103/ul Normal 0.00-0.70 [facility] Comment on above: Performed By: #### C BCAZAR #### [facility] [address] [place] [address] Dr. Yoli Mccarty EOS% 2.0 % Normal 0.9-7.0 [facility] Comment on above: Performed By: #### C BCAZRA #### [facility] [address] [place] [address] Dr. Yoli Mccarty HCT 37.3 % Normal 36.0-48.0 [facility] Comment on above: Performed By: #### C BCAZAR #### [facility] [address] [place] [address] Dr. Yoli Mccarty HGB 12.3 g/dl Normal 12.0-16.0 [facility] Comment on above: Performed By: #### C JENNIFER #### [facility] [address] [place] [address] Dr. Yoli Mccarty LYMPHM # 1.13 103/ul Critically low 1.20-3.80 [facility] Comment on above: Performed By: #### C JENNIFER #### [facility] [address] [place] [address] Dr. Yoli Mccarty LYMPHM% 47.0 % Normal 20.5-60.0 [facility] Comment on above: Performed By: #### C JENNIFER #### [facility] [address] [place] [address] Dr. Yoli Mccarty MCH 28.5 pg Normal 26.7-34.0 [facility] Comment on above: Performed By: #### C JENNIFER #### [facility] [address] [place] [address] Dr. Yoli Mccarty MCHC 33.0 g/dl Normal 29.9-35.2 [facility] Comment on above: Performed By: #### C JENNIFER #### [facility] [address] [place] [address] Dr. Yoli Mccarty MCV 86.3 fL Normal 81.0-99.0 [facility] Comment on above: Performed By: #### C JENNIFER #### [facility] [address] [place] [address] Dr. Yoli Mccarty METAMYELOCYTE # Normal [facility] Comment on above: Performed By: #### C JENNIFER #### [facility] [address] [place] [address] Dr. Yoli Mccarty METAMYELOCYTE % Normal [facility] Comment on above: Performed By: #### C JENNIFER #### [facility] [address] [place] [address] Dr. Yoli Mccarty MONOM# 0.50 103/ul Normal 0.30-0.80 [facility] Comment on above: Performed By: #### C JENNIFER #### [facility] [address] [place], [place] [id number] Dr. Yoli Mccarty MONOM% 21.0 % Critically high 1.7-12.0 [facility] Comment on above: Performed By: #### C JENNIFER #### [facility] [address] [place] [address] Dr. Yoli Mccarty MPV 9.2 fL Critically low 9.5-13.5 [facility] Comment on above: Performed By: #### C JENNIFER #### [facility] [address] [place] [address] Dr. Yoli Mccarty MYELOCYTE # Normal [facility] Comment on above: Performed By: #### C JENNIFER #### [facility] [address] [place] [address] Dr. Yoli Mccarty MYELOCYTE % Normal [facility] Comment on above: Performed By: #### C JENNIFER #### [facility] [address] [place] [address] Dr. Yoli Mccarty NRBC Normal [facility] Comment on above: Performed By: #### C JENNIFER #### [facility] [address] [place] [address] Dr. Yoli Mccarty PLT 170 103/ul Normal 150-450 [facility] Comment on above: Performed By: #### C JENNIFER #### [facility] [address] [place] [address] Dr. Yoli Mccarty RBC 4.32 106/ul Normal 4.20-5.40 [facility] Comment on above: Performed By: #### C JENNIFER #### [facility] [address] [place] [address] Dr. Yoli Mccarty RDW 12.8 % Normal 11.0-15.0 [facility] Comment on above: Performed By: #### C JENNIFER #### [facility] [address] [place] [address] Dr. Yoli Mccarty SEG # 0.70 103/ul Critically low 1.40-6.50 [facility] Comment on above: Performed By: #### C JENNIFER #### [facility] [address] [place] [address] Dr. Yoli Mccarty SEG % 29.0 % Critically low 43.0-75.0 [facility] Comment on above: Performed By: #### C BCMAN #### [facility] [address] [place] [address] Dr. Yoli Mccarty WBC 2.4 103/ul Critically low 4.0-11.0 [facility] Comment on above: Performed By: #### C JAKEMAN #### [facility] [address] [place] [address] Dr. Yoli Mccarty PROF 14(COMP METB)on 022 Albumin [Mass/Vol] 3.7 g/dL Normal 3.4-5.0 [facility] Comment on above: Performed By: #### C MP #### [facility] [address] [place] [address] Dr. Yoli Mccarty Albumin/Globulin [Mass ratio] 0.9 {ratio} Normal [facility] Comment on above: Performed By: #### C MP #### [facility] [address] [place] [address] Dr. Yoli Mccarty ALP [Catalytic activity/Vol] 79 U/L Normal 46-116 [facility] Comment on above: Performed By: #### C MP #### [facility] [address] [place] [address] Dr. Yoli Mccarty ALT [Catalytic activity/Vol] 18 U/L Normal 14-59 [facility] Comment on above: Performed By: #### C MP #### [facility] [address] [place] [address] Dr. Yoli Mccarty Anion gap [Moles/Vol] 12.1 mmol/L Normal [facility] Comment on above: Performed By: #### C MP #### [facility] [address] [place] [address] Dr. Yoli Mccarty AST [Catalytic activity/Vol] 15 U/L Normal 15-37 [facility] Comment on above: Performed By: #### C MP #### [facility] [address] [place] [address] Dr. Yoli Mccarty Bilirubin [Mass/Vol] 0.5 mg/dL Normal 0.2-1.0 [facility] Comment on above: Performed By: #### C MP #### [facility] [address] [address] [address] Yoli Mccarty Calcium [Mass/Vol] 9.2 mg/dL Normal 8.5-10.1 [facility] Comment on above: Performed By: #### C MP #### [facility] [address] [address] [address] Yoli Mccarty Chloride [Moles/Vol] 103 mmol/L Normal 98-107 [facility] Comment on above: Performed By: #### C MP #### [facility] [address] [place] [address] Dr. Yoli Mccarty CO2 [Moles/Vol] 28.4 mmol/L Normal 21.0-32.0 [facility] Comment on above: Performed By: #### C MP #### [facility] [address] [place] [address] Dr. Yoli Mccarty Creatinine [Mass/Vol] 0.99 mg/dL Normal 0.55-1.02 [facility] Comment on above: Performed By: #### C MP #### [facility] [address] [place] [address] Dr. Yoli Mccarty EGFR-AF BURUNDIAN >60 Normal >=60 [facility] Comment on above: Performed By: #### C MP #### [facility] [address] [place] [address] Dr. Yoli Mccarty EGFR-NON AF B[place]DIAN 55 mL/min/1.73m2 Critically low >=60 [facility] Comment on above: Performed By: #### C MP #### [facility] [address] [address] [address] Yoli Mccarty Globulin (S) [Mass/Vol] 3.9 g/dL Normal [facility] Comment on above: Performed By: #### C MP #### [facility] [address] [place] [address] Dr. Yoli Mccarty Glucose [Mass/Vol] 101 mg/dL Normal 74-106 [facility] Comment on above: Performed By: #### C MP #### [facility] [address] [place], [place] [address] Dr. Yoli Mccarty Potassium [Moles/Vol] 4.5 mmol/L Normal 3.5-5.1 [facility] Comment on above: Performed By: #### C MP #### [facility] [id number] Yoli Mccarty Protein [Mass/Vol] 7.6 g/dL Normal 6.4-8.2 [facility] Comment on above: Performed By: #### C MP #### [facility] [address] [address] [address] Yoli Mccarty Sodium [Moles/Vol] 139 mmol/L Normal 136-145 [facility] Comment on above: Performed By: #### C MP #### [facility] [address] [address] [address] Yoli Mccarty Urea nitrogen [Mass/Vol] 16.0 mg/dL Normal 7.0-18.0 [facility] Comment on above: Performed By: #### C MP #### [facility] [address] [address] [address] Yoli Mccarty Urea nitrogen/Creatinine [Mass ratio] 16.2 mg/mg Normal [facility] Comment on above: Performed By: #### C MP #### [facility] [address] [address] [address] Yoli Mccarty SED RATE [facility] 2021 SED RATE 23 mm/hr Normal <=30 [facility] Comment on above: Performed By: #### S EDR ####[facility] [id number] [address]Dr. Yoli Mccarty CBC W Auto Differential pane l (Bld)on 06-29-2022 Abs Immature Gran <0.10 k/uL [facility] Basophils (Bld) [#/Vol] <0.11 k/uL [facility] Basophils/100 WBC (Bld) 0.8 % [facility] Differential cell count method Nom (Bld) Auto [facility] Eosinophils (Bld) [#/Vol] 0.04 10*3/uL <0.46 k/uL [facility] Eosinophils/100 WBC (Bld) 1.6 % [facility] Erythrocyte distribution width (RBC) [Ratio] 12.7 % 11.5 - 15.0 % [facility] Hematocrit (Bld) [Volume fraction] 38.8 % 36.0 - 46.0 % [facility] Hemoglobin (Bld) [Mass/Vol] 13.0 g/dL 11.5 - 15.5 g/dL [facility] Immature Gran % 0.0 % [facility] Lymphocytes (Bld) [#/Vol] 1.08 10*3/uL 1.00 - 4.00 k/uL [facility] Lymphocytes/100 WBC (Bld) 44.3 % [facility] MCH (RBC) [Entitic mass] 28.9 pg 26.0 - 34.0 pg [facility] MCHC (RBC) [Mass/Vol] 33.5 g/dL 30.5 - 36.0 g/dL [facility] MCV (RBC) [Entitic vol] 86.2 fL 80.0 - 100.0 fL [facility] Monocytes (Bld) [#/Vol] 0.39 10*3/uL <0.87 k/uL [facility] Monocytes/100 WBC (Bld) 16.0 % [facility] Neutrophils (Bld) [#/Vol] 0.91 10*3/uL Low 1.45 - 7.50 k/uL [facility] Neutrophils/100 WBC (Bld) 37.3 % [facility] Nucleated RBC (Bld) [#/Vol] <0.01 k/uL [facility] Nucleated RBC/100 WBC (Bld) [Ratio] 0.0 /100 WBC [facility] Platelet mean volume (Bld) [Entitic vol] 9.0 fL 9.0 - 12.7 fL [facility] Platelets (Bld) [#/Vol] 168 10*3/uL 150 - 400 k/uL [facility] RBC (Bld) [#/Vol] 4.50 10*6/uL 3.90 - 5.2 0 m/uL [facility] WBC (Bld) [#/Vol] 2.44 10*3/uL Low 3.70 - 11. 00 k/uL [facility] Comprehensive metabolic 2000 panelon 06-29-2022 Albumin [Mass/Vol] 4.3 g/dL 3.9 - 4.9 g/dL [facility] ALP [Catalytic activity/Vol] 81 U/L 34 - 123 U/L [facility] ALT [Catalytic activity/Vol] 14 U/L 7 - 38 U/L [facility] Anion gap [Moles/Vol] 10 mmol/L 9 - 18 mmol/L [facility] AST [Catalytic activity/Vol] 19 U/L 13 - 35 U/L [facility] Bilirubin [Mass/Vol] 0.6 mg/dL 0.2 - 1.3 mg/dL [facility] Calcium [Mass/Vol] 9.3 mg/dL 8.5 - 10. 2 mg/dL [facility] Chloride [Moles/Vol] 103 mmol/L 97 - 105 mmol/L [facility] CO2 [Moles/Vol] 25 mmol/L 22 - 30 mmol/L [facility] Creatinine [Mass/Vol] 1.03 mg/dL High 0.58 - 0.96 mg/dL [facility] Estimated Glomerular Filtration Rate 58 mL/min/1.73m Low >=60 mL/min/1.73m [facility] Glucose [Mass/Vol] 93 mg/dL 74 - 99 mg/dL [facility] Potassium [Moles/Vol] 4.6 mmol/L 3.7 - 5.1 mmol/L [facility] Protein [Mass/Vol] 7.3 g/dL 6.3 - 8.0 g/dL [facility] Sodium [Moles/Vol] 138 mmol/L 136 - 144 mmol/L [facility] Urea nitrogen [Mass/Vol] 18 mg/dL 7 - 21 mg/dL [facility] LD LACTATE DEHYDROon 022 LDH [Catalytic activity/Vol] 201 U/L 135 - 214 U/L [facility] MAGNESIUM BLDon 06-29-2022 Magnesium [Mass/Vol] 2.1 mg/dL 1.7 - 2.3 mg/dL [facility] RETIC COUNTon 06-29-2022 Reticulocytes (Bld) [#/Vol] 0.54981 10*3/uL 0.018 - 0.100 M/uL [facility] Reticulocytes (Bld) [#/Vol]o n 06-29-2022 Reticulocytes/100 RBC (Bld) 1.6 % 0.4 - 2.0 % [facility] CBC AUTO DIFFon 01-11-2022 BASO # 0.0 103/ul Normal 0.0-0.1 [facility] Comment on above: Performed By: #### C BC #### [facility] [address] [address] [address] Yoli Mccarty Basophils/100 WBC (Bld) 0.8 % Normal 0.2-2.0 [facility] Comment on above: Performed By: #### C BC #### [facility] [address] [place] [address] Dr. Yoli Mccarty EO # 0.1 103/ul Normal 0.0-0.7 [facility] Comment on above: Performed By: #### C BC #### [facility] [address] [place] [address] Dr. Yoli Mccarty Eosinophils/100 WBC (Bld) 2.0 % Normal 0.9-7.0 [facility] Comment on above: Performed By: #### C BC #### [facility] [address] [place] [address] Dr. Yoli Mccaryt Erythrocyte distribution width (RBC) [Ratio] 13.2 % Normal 11.0-15.0 [facility] Comment on above: Performed By: #### C BC #### [facility] [address] [place] [address] Dr. Yoli Mccarty Hematocrit (Bld) [Volume fraction] 39.3 % Normal 36.0-48.0 [facility] Comment on above: Performed By: #### C BC #### [facility] [address] [place] [address] Dr. Yoli Mccarty Hemoglobin (Bld) [Mass/Vol] 13.0 g/dL Normal 12.0-16.0 [facility] Comment on above: Performed By: #### C BC #### [facility] [address] [place] [address] Dr. Yoli Mccarty IG # 0.00 10e3/ul Normal 0.00-0.03 [facility] Comment on above: Performed By: #### C BC #### [facility] [address] [place] [address] Dr. Yoli Mccarty IG % 0.0 % Normal 0.0-0.5 [facility] Comment on above: Performed By: #### C BC #### [facility] [address] [place] [address] Dr. Yoli Mccarty LYMPH # 1.1 103/ul Critically low 1.2-3.8 [facility] Comment on above: Performed By: #### C BC #### [facility] [address] [place] [address] Dr. Yoli cMcarty Lymphocytes/100 WBC (Bld) 43.1 % Normal 20.5-60.0 [facility] Comment on above: Performed By: #### C BC #### [facility] [address] [place] [address] Dr. Yoli Mccarty MANUAL DIFF REQ NO Normal [facility] Comment on above: Performed By: #### C BC #### [facility] [address] [place] [address] Dr. Yoli Mccarty MCH (RBC) [Entitic mass] 28.6 pg Normal 26.7-34.0 [facility] Comment on above: Performed By: #### C BC #### [facility] [address] [place] [address] Dr. Yoli Mccarty MCHC (RBC) [Mass/Vol] 33.1 g/dL Normal 29.9-35.2 [facility] Comment on above: Performed By: #### C BC #### [facility] [address] [place] [address] Dr. Yoli Mccarty MCV (RBC) [Entitic vol] 86.4 fL Normal 81.0-99.0 [facility] Comment on above: Performed By: #### C BC #### [facility] [address] [place] [address] Dr. Yoli Mccarty MONO # 0.4 103/ul Normal 0.3-0.8 [facility] Comment on above: Performed By: #### C BC #### [facility] [address] [address] [address] Yoli Mccarty Monocytes/100 WBC (Bld) 14.5 % Critically high 1.7-12.0 [facility] Comment on above: Performed By: #### C BC #### [facility] [address] [address] [address] Yoli Mccarty NEUT # 1.0 103/ul Critically low 1.4-6.5 [facility] Comment on above: Performed By: #### C BC #### [facility] [address] [place] [address] Dr. Yoli Mccarty Neutrophils/100 WBC (Bld) 39.6 % Critically low 43.0-75.0 [facility] Comment on above: Performed By: #### C BC #### [facility] [address] [place] [address] Dr. Yoli Mccarty Platelet mean volume (Bld) [Entitic vol] 8.8 fL Critically low 9.5-13.5 [facility] Comment on above: Performed By: #### C BC #### [facility] [address] [place] [address] Dr. Yoli Mccarty PLT 162 103/ul Normal 150-450 [facility] Comment on above: Performed By: #### C BC #### [facility] [address] [place] [address] Dr. Yoli Mccarty RBC 4.55 106/ul Normal 4.20-5.40 [facility] Comment on above: Performed By: #### C BC #### [facility] [address] [place] [address] Dr. Yoli Mccarty WBC 2.6 103/ul Critically low 4.0-11.0 [facility] Comment on above: Performed By: #### C BC #### [facility] [address] [place] [address] Dr. Yoli Mccarty PROF 14(COMP METB)on 022 Albumin [Mass/Vol] 3.6 g/dL Normal 3.5-5.0 [facility] Comment on above: Performed By: #### C MP #### [facility] [address] [place] [address] Dr. Yoli Mccarty Albumin/Globulin [Mass ratio] 0.9 {ratio} Normal [facility] Comment on above: Performed By: #### C MP #### [facility] [address] [place] [address] Dr. Yoli Mccarty ALP [Catalytic activity/Vol] 75 U/L Normal 38-126 [facility] Comment on above: Performed By: #### C MP #### [facility] [address] [place] [address] Dr. Yoli Mccarty ALT [Catalytic activity/Vol] 15 U/L Normal 9-52 [facility] Comment on above: Performed By: #### C MP #### [facility] [address] [place] [address] Dr. Yoli Mccarty Anion gap [Moles/Vol] 9.4 mmol/L Normal [facility] Comment on above: Performed By: #### C MP #### [facility] [address] [place] [address] Dr. Yoli Mccarty AST [Catalytic activity/Vol] 17 U/L Normal 14-36 [facility] Comment on above: Performed By: #### C MP #### [facility] [address] [place] [address] Dr. Yoli Mccarty Bilirubin [Mass/Vol] 0.6 mg/dL Normal 0.2-1.3 [facility] Comment on above: Performed By: #### C MP #### [facility] [address] [place] [address] Dr. Yoli Mccarty Calcium [Mass/Vol] 8.8 mg/dL Normal 8.4-10.2 [facility] Comment on above: Performed By: #### C MP #### [facility] [address] [place] [address] Dr. Yoli Mccarty Chloride [Moles/Vol] 104 mmol/L Normal 98-107 [facility] Comment on above: Performed By: #### C MP #### [facility] [address] [place] [address] Dr. Yoli Mccarty CO2 [Moles/Vol] 29.1 mmol/L Normal 22.0-30.0 [facility] Comment on above: Performed By: #### C MP #### [facility] [address] [address] [address] Yoli Mccarty Creatinine [Mass/Vol] 0.97 mg/dL Normal 0.52-1.04 [facility] Comment on above: Performed By: #### C MP #### [facility] [address] [address] [address] Yoli Mccarty EGFR-AF BURUNDIAN >60 Normal >=60 [facility] Comment on above: Performed By: #### C MP #### [facility] [address] [address] [address] Yoli Mccarty EGFR-NON AF [place] 56 mL/min/1.73m2 Critically low >=60 [facility] Comment on above: Performed By: #### C MP #### [facility] [address] [address] [address] Yoli Mccarty Globulin (S) [Mass/Vol] 3.9 g/dL Normal [facility] Comment on above: Performed By: #### C MP #### [facility] [address] [address] [address] Yoli Mccarty Glucose [Mass/Vol] 99 mg/dL Normal 74-106 [facility] Comment on above: Performed By: #### C MP #### [facility] [address] [address] [address] Yoli Mccarty Potassium [Moles/Vol] 4.5 mmol/L Normal 3.4-5.0 [facility] Comment on above: Performed By: #### C MP #### [facility] [address] [address] [address] Yoli Mccarty Protein [Mass/Vol] 7.5 g/dL Normal 6.1-8.2 [facility] Comment on above: Performed By: #### C MP #### [facility] [address] [place] [address] Dr. Yoli Mccarty Sodium [Moles/Vol] 138 mmol/L Normal 137-145 [facility] Comment on above: Performed By: #### C MP #### [facility] [address] [address] [address] Yoli Mccarty Urea nitrogen [Mass/Vol] 18.0 mg/dL Critically high 7.0-17.0 [facility] Comment on above: Performed By: #### C MP #### [facility] [address] [address] [address] Yoli Mccarty Urea nitrogen/Creatinine [Mass ratio] 18.6 mg/mg Normal [facility] Comment on above: Performed By: #### C MP #### [facility] [address] [address] [address] Yoli Mccarty SED RATE [facility] 2021 SED RATE 13 mm/hr Normal <=30 [facility] Comment on above: Performed By: #### S EDR #### [facility] [address] [address] [address] Yoli Mccarty Vital Signs Date Time Vital Sign Value Performing Clinician Facility 09-06-2023 11:34-0400 Body temperature 97.7 [degF] Guero Flores MD, PhD Work Phone: [facility] 09-06-2023 11:34-0400 Body weight 89.5 kg Guero Flores MD, PhD Work Phone: [facility] 09-06-2023 11:34-0400 Diastolic blood pressure 68 mm[Hg] Guero Flores MD, PhD Work Phone: [facility] 09-06-2023 11:34-0400 Heart rate 68 /min Guero Flores MD, PhD Work Phone: [facility] 09-06-2023 11:34-0400 Respiratory rate 18 /min Guero Flores MD, PhD Work Phone: [facility] 09-06-2023 11:34-0400 SaO2% (BldA) [Mass fraction] 97 % Guero Flores MD, PhD Work Phone: [facility] 09-06-2023 11:34-0400 Systolic blood pressure 139 mm[Hg] Guero Flores MD, PhD Work Phone: [facility] 03-08-2023 11:55-0400 Body temperature 97.39 [degF] Guero Flores MD, PhD Work Phone: [facility] 03-08-2023 11:55-0400 Body weight 89.81 kg Guero Flores MD, PhD Work Phone: [facility] 03-08-2023 11:55-0400 Diastolic blood pressure 71 mm[Hg] Guero Flores MD, PhD Work Phone: [facility] 03-08-2023 11:55-0400 Heart rate 70 /min Guero Flores MD, PhD Work Phone: [facility] 03-08-2023 11:55-0400 Respiratory rate 18 /min Guero Flores MD, PhD Work Phone: [facility] 03-08-2023 11:55-0400 SaO2% (BldA) [Mass fraction] 98 % Guero Flores MD, PhD Work Phone: [facility] 03-08-2023 11:55-0400 Systolic blood pressure 169 mm[Hg] Guero Flores MD, PhD Work Phone: [facility] 11-09-2022 14:45-0500 Body height 167.64 cm Dejuan Hernandez Other [employer] Other 11-09-2022 14:45-0500 Body mass index (BMI) [Ratio] 32.44 kg/m2 Dejuan Hernandez Other [employer] Other 11-09-2022 14:45-0500 Body weight 91.17 kg Dejuan Hernandez Other [employer] Other 11-09-2022 14:45-0500 Diastolic blood pressure 96 mm[Hg] Dejuan Hernandez Other [employer] Other 11-09-2022 14:45-0500 Systolic blood pressure 160 mm[Hg] Dejuan Hernandez Other [employer] Other 10-26-2022 11:25-0500 Body temperature 98.29 [degF] Guero Flores MD, PhD Work Phone: [facility] 10-26-2022 11:25-0500 Body weight 92.81 kg Guero Flores MD, PhD Work Phone: [facility] 10-26-2022 11:25-0500 Diastolic blood pressure 72 mm[Hg] Guero Flores MD, PhD Work Phone: [facility] 10-26-2022 11:25-0500 Heart rate 69 /min Guero Flores MD, PhD Work Phone: [facility] 10-26-2022 11:25-0500 Respiratory rate 18 /min Guero Flores MD, PhD Work Phone: [facility] 10-26-2022 11:25-0500 SaO2% (BldA) [Mass fraction] 100 % Guero Flores MD, PhD Work Phone: [facility] 10-26-2022 11:25-0500 Systolic blood pressure 146 mm[Hg] Guero Flores MD, PhD Work Phone: [facility] 06-29-2022 11:55-0400 Body height 167.1 cm Guero Flores MD, PhD Work Phone: [facility] 06-29-2022 11:55-0400 Body temperature 98.01 [degF] Guero Flores MD, PhD Work Phone: [facility] 06-29-2022 11:55-0400 Body weight 94.76 kg Guero Flores MD, PhD Work Phone: [facility] 06-29-2022 11:55-0400 Diastolic blood pressure 71 mm[Hg] Guero Flores MD, PhD Work Phone: [facility] 06-29-2022 11:55-0400 Heart rate 66 /min Guero Flores MD, PhD Work Phone: [facility] 06-29-2022 11:55-0400 Respiratory rate 20 /min Guero Flores MD, PhD Work Phone: [facility] 06-29-2022 11:55-0400 SaO2% (BldA) [Mass fraction] 98 % Guero Flores MD, PhD Work Phone: [facility] 06-29-2022 11:55-0400 Systolic blood pressure 153 mm[Hg] Guero Flores MD, PhD Work Phone: [facility] Encounters Encounter Date Encounter Type Care Provider Facility Start: 11-08-2023 End: 11-08-2023 ambulatory JUNO MCFADDEN II Facility:[facility] Start: 10-06-2023 End: 10-06-2023 ambulatory JUNO MCFADDEN II Facility:[facility] Start: 09-06-2023 End: 09-06-2023 ambulatory GUERO FLORES Facility:[facility] Start: 09-06-2023 End: 09-07-2023 ambulatory Guero Flores MD, PhD Work Phone: Hematology/Oncology Comment on above: 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); Other neutropenia (HCC); Thrombocytopenia (HCC) Start: 09-06-2023 End: 09-06-2023 Patient encounter procedure Guero Flores MD, PhD Work Phone: [facility] Start: 06-16-2023 End: 06-16-2023 ambulatory JUNO MCFADDEN II Facility:[facility] Start: 05-04-2023 End: 05-04-2023 ambulatory GUERO FLORES Facility:[facility] Start: 03-31-2023 End: 03-31-2023 ambulatory JUNO MCFADDEN II Facility:[facility] Start: 03-08-2023 End: 03-09-2023 ambulatory Guero Flores MD, PhD Work Phone: Hematology/Oncology Comment on above: 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) Start: 03-08-2023 End: 03-08-2023 Patient encounter procedure Guero Flores MD, PhD Work Phone: [facility] Start: 01-24-2023 End: 01-24-2023 ambulatory JUNO MCFADDEN II Facility:[facility] Start: 12-27-2022 End: 12-28-[address] SVETLANA BARTON Facility: Start: 12-16-2022 End: 12-16-2022 ambulatory JUNO MCFADDEN II Facility:[facility] Start: 11-09-2022 End: 11-09-2022 ambulatory Dejuan Hernandez Other [employer] Other Start: 11-09-2022 [facility] visit new patient Dejuan Hernandez [facility] Gastroenterology Start: 11-04-2022 End: 11-04-[address] KAREN EDWARDS . 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 Facility:[facility] Start: 07-20-2022 End: 07-21-[address] SVETLANA BARTON Facility:[facility] Start: 07-04-2022 Refill Guero macdonald MD, PhD Work Phone: Hematology/Oncology Comment on above: Refill Request Start: 06-29-2022 End: 06-29-2022 ambulatory Guero Flores MD, PhD Work Phone: Hematology/Oncology Comment on above: 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) Start: 06-29-2022 End: 06-29-2022 Patient encounter procedure Guero Flores MD, PhD Work Phone: [facility] Start: 01-11-2022 End: 01-12-[address] DOCTOR ORTZI Facility:H1 Procedures Date Procedure Procedure Detail Performing Clinician Start: 06-30-2023 Lipid 1996 panel - S radha or Plasma Guero Flores MD, PhD Work Phone: Start: 06-27-2022 Adult depression screening assessment Guero Flores MD, PhD Work Phone: Plan of Treatment Date Care Activity Detail Author Start: 09-02-2030 Urine microalbumin profile DTaP,Tdap,Td Vaccine (2 - Td or Tdap) [facility] Start: 06-30-2028 Lipid 1996 panel - S radha or Plasma Lipid Screening [facility] Start: 09-06-2026 Diabetes Screening Diabetes Screenin g [facility] Start: 03-08-2026 DIABETES SCREEN DIABETES SCREEN [facility] Start: 10-26-2025 DIABETES SCREEN DIABETES SCREEN [facility] Start: 08-25-2025 DIABETES SCREEN DIABETES SCREEN [facility] Start: 06-29-2025 DIABETES SCREEN DIABETES SCREEN [facility] Start: 10-10-2023 Covid-19 Vaccine () Covid-19 Vaccine () [facility] Start: 06-27-2023 Adult depression screening assessment DEPRESSION SCREENING [facility] Start: 11-06-2022 ADVANCE DIRECTIVE DISCUSSION ADVANCE DIRECTIVE DISCUSSION [facility] Start: 11-06-2022 DEPRESSION ASSESSMENT DEPRESSION ASS ESSMENT [facility] Start: 10-26-2022 End: 12-26-2022 Lactate dehydrogenase [Enzymatic activity/volume] in Serum or Plasma LD LACTATE DEHYDRO Lab Routine Large granular lymphocytic leukemia (HCC) Expected: 10/26/2022, Expires: 12/26/2022 [facility] Work Phone: Comment on above: Expected: 10/26/2022 , Expires: 12/26/2022 Start: 08-29-2022 End: 10-29-2022 CBC W Auto Differential panel - Blood CBC + DIFF Lab Routine Large granular lymphocytic leukemia (HCC) Expected: 08/29/2022, Expires: 10/29/2022 [facility] Work Phone: Comment on above: Expected: 08/29/2022 , Expires: 10/29/2022 Start: 08-29-2022 End: 10-29-2022 Comprehensive metabolic 2000 panel - Serum or Plasma COMP METABOLIC PANEL Lab Routine Large granular lymphocytic leukemia (HCC) Expected: 08/29/2022, Expires: 10/29/2022 [facility] Work Phone: Comment on above: Expected: 08/29/2022 , Expires: 10/29/2022 Start: 08-29-2022 End: 10-29-2022 Magnesium [Mass/volume] in Serum or Plasma MAGNESIUM BLD Lab Routine Large granular lymphocytic leukemia (HCC) Expected: 08/29/2022, Expires: 10/29/2022 [facility] Work Phone: Comment on above: Expected: 08/29/2022 , Expires: 10/29/2022 Start: 08-29-2022 End: 10-29-2022 RETIC COUNT RETIC COUNT Lab Routine Large granular lymphocytic leukemia (HCC) Expected: 08/29/2022, Expires: 10/29/2022 [facility] Work Phone: Comment on above: Expected: 08/29/2022 , Expires: 10/29/2022 Start: 07-07-2022 Influenza vaccination INFLUENZA (#1) [facility] Start: 06-28-2022 End: 08-28-2022 EXTRA TUBES EXTRA TUBES Lab Routine Large granular lymphocytic leukemia (HCC) Expected: 06/28/2022, Expires: 08/28/2022 [facility] Work Phone: Comment on above: Expected: 06/28/2022 , Expires: 08/28/2022 Start: 12-13-2021 COVID-19 VACCINE (4 - Booster) COVID-19 VACCINE (4 - Booster) [facility] Start: 11-15-2021 COVID-19 VACCINE (4 - Booster) COVID-19 VACCINE (4 - Booster) [facility] Start: 11-06-2021 ADVANCE DIRECTIVE DISCUSSION ADVANCE DIRECTIVE DISCUSSION [facility] Start: 11-06-2021 DEPRESSION ASSESSMENT DEPRESSION ASS ESSMENT [facility] Start: 09-15-2020 Shingrix Vaccine (2 of 2) Shingrix Vaccine (2 of 2) [facility] Start: 2014 BONE DENSITY BONE DENSITY [facility] Start: 2014 Bone Density Screening Bone Density Screening [facility] Start: 2009 RSV Vaccine (1 - 1-d ose 60+ series) RSV Vaccine (1 - 1-dose 60+ series) [facility] Start: 1994 COLOGUARD (FIT-DNA) COLOGUARD (FIT-D NA) [facility] Start: 1994 Colonoscopy COLONOSCOPY [facility] Start: 1994 COLORECTAL CANCER SCREENING COLORECTAL CANCER SCREENING [facility] Start: [address] [facility] Start: 1994 FECAL OCCULT BLOOD FECAL OCCULT BLOO D [facility] Start: 1994 LIPID SCREEN LIPID SCREEN [facility] Start: 1994 SIGMOIDOSCOPY SIGMOIDOSCOPY [facility] Start: 1989 Mammography [facility] Start: 1968 SHINGRIX VACCINE (1 of 2) SHINGRIX VACCINE (1 of 2) [facility] Start: 1968 Urine microalbumin profile DTAP,TDAP,TD (1 - Tdap) [facility] Start: 1967 HEPATITIS C SCREENING HEPATITIS C SC REENING [facility] Start: 1955 PNEUMOCOCCAL: 65+ (1 - PCV) PNEUMOCOCCAL: 65+ (1 - PCV) [facility] EXTRA TUBES EXTRA TUBES Lab Routine Large granular lymphocytic leukemia (HCC) 06/29/2022 10:34 AM EDT [facility] Work Phone: [facility] Immunizations Immunization Date Immunization Notes Care Provider Fa cility 01-21-2021 COVID-19 mRNA-1273 (Moderna) [facility] 12-24-2020 COVID-19 mRNA-1273 (Moderna) [facility] Payers Date Payer Category Payer Medicare [id number] 2014 Private Health Insurance [id number] 1960 Medicare [id number] 1960 Medicare [id number] 1949 Unknown [id number] [id number] 1949 Unknown [id number] [id number] [id number] 1949 Unknown [id number] 2.16.84 [id number] 1949 Unknown [id number] 2.16.84 [id number] 1949 Unknown [id number] 2.16.84 [id number] 1949 Unknown [id number] 2.16.84 [id number] Private Health Insurance Self Pay [id number] Self-pay Self Pay [id number] Social History Date Type Detail [facility] Work Phone: Start: 1950 Sex Assigned At Female F [facility] Start: 08-21-2017 Tobacco smoking stat [facility] Never smoked tobacco [facility] Start: 08-21-2017 Tobacco use and exposure Smokeless tobacco non-user [facility] Start: 06-30-2021 End: 10-26-2022 Alcohol intake Current non-drinker of alcohol (finding) [facility] Start: 06-19-2022 End: 06-29-2022 Exposure to SARS-CoV-2 (event) Not sure [facility] Start: 10-26-2022 End: 03-08-2023 Sex Assigned At [facility] Start: 10-26-2022 End: 03-08-2023 History of Social function [facility] Adult Depression Screening Assessment 0 [facility] Start: 12-28-2020 Gender identity Identifies as female gender (finding) [facility] Start: 12-28-2020 Sexual orientation Heterosexual (fin gloria) [facility] Clinical Notes 06-29-2022 to 09-06-2023 Lidia Gamez MD - 09/06/2023 11:41 AM Yovany Betancourt PCNA - 09/06/2023 11:33 AM Jack Isabel RN - 03/08/2023 11:55 AM Neeru Flores MD, PhD - 03/08/2023 11:51 AM EDT Note Date & Type Note Facility 09-06-2023 Note HNO ID: [id number] Author: Lidia Gamez MD Service: ? Author Type: Fellow Type: Progress Notes Filed: 09/12/2023 3:13 PM Note Text: [facility] DEPART[facility] OF HEMATOLOGY AND MEDICAL ONCOLOGY CLINIC VISIT __ Chief Complaint: follow up of T-LGL HPI: This is a pleasant 72-year-old female with past medical history of rheumatoid arthritis who was on methotrexate and Plaquenil. She was on methotrexate from 2013 to July 2017 and plaquenil from [id number]. Before that she was on sulfasalazine and when necessary steroids. Patient stated that she was initially diagnosed with rheumatoid arthritis in 1991 and had multiple therapies are mentioned below. She was doing well on methotrexate with her symptoms well controlled. In summer it was noticed that her WBC and ANC were trending down. This prompted a follow-up with the office machines wirer. Initially it was thought to be secondary to methotrexate. The medication was stopped. 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 Interval history: Patient presents for routine follow up. Denies any complaints at this visit. BP well controlled on propranolol and amlodipine. Review of systems: 10-points systems reviewed and were negative except for what was mentioned in the history of present illness. Examination; Vital signs: 09/06/23 1134 BP: 139/68 Pulse: 68 Resp: 18 Temp: 36.5 ?C (97.7 ?F) TempSrc: Temporal SpO2: 97% (RA) Weight: 89.5 kg (197 lb 5 oz) General appearance: Well appearing, alert, in no acute distress Skin: no rash Lungs: breathing comfortably on room air. Lungs clear to auscultation Heart: RRR without murmur, or gallop. Abdomen: Abdomen soft, non-tender. No masses, organomegaly Extremities: No edema Musculoskeletal: Normal range of motion. No joint swelling, or deformity. Neuro: non focal LABS: Component Ref Range AND Units 10:25 AM 2 mo ago 4 mo ago 5 mo ago 6 mo ago 7 mo ago 8 mo ago WBC 3.70 - 11.00 k/uL 3.77 3.63 Low 3.23 Low 2.85 Low 2.62 Low 2.85 Low 2.95 Low RBC 3.90 - 5.20 m/uL 4.46 4.30 4.35 4.46 4.48 4.57 4.45 Hemoglobin 11.5 - 15.5 g/dL 12.9 12.8 12.6 12.6 12.7 12.9 12.5 Hematocrit 36.0 - 46.0 % 38.9 37.1 36.8 38.0 38.1 38.5 37.2 MCV 80.0 - 100.0 fL 87.2 86.3 84.6 85.2 85.0 84.2 83.6 MCH 26.0 - 34.0 pg 28.9 29.8 29.0 28.3 28.3 28.2 28.1 MCHC 30.5 - 36.0 g/dL 33.2 34.5 34.2 33.2 33.3 33.5 33.6 RDW-CV 11.5 - 15.0 % 12.8 12.8 12.8 13.2 13.1 13.2 13.3 Platelet Count 150 - 400 k/uL 210 191 181 175 192 178 173 MPV 9.0 - 12.7 fL 9.4 9.1 8.7 Low 9.0 9.1 8.9 Low 8.9 Low Neutrophils % % 53.3 46.5 44.0 40.0 38.6 53.6 38.4 Abs Neut 1.45 - 7.50 k/uL 2.01 1.69 1.42 Low 1.14 Low 1.01 Low 1.53 1.13 Component Ref Range AND Units 10:25 AM 2 mo ago 4 mo ago 5 mo ago 6 mo ago 7 mo ago 8 mo ago Protein, Total 6.3 - 8.0 g/dL 7.7 7.3 7.5 7.4 7.3 7.4 7.2 Albumin 3.9 - 4.9 g/dL 4.4 4.4 4.3 4.3 4.2 4.2 4.2 Calcium, Total 8.5 - 10.2 mg/dL 9.5 9.4 9.6 9.9 9.4 9.7 9.6 Bilirubin, Total 0.2 - 1.3 mg/dL 0.7 0.5 0.6 0.6 0.6 0.7 0.6 Alkaline Phosphatase 34 - 123 U/L 89 95 99 79 76 76 76 AST 13 - 35 U/L 19 15 17 17 17 16 18 ALT 7 - 38 U/L 12 12 11 10 11 10 10 Glucose 74 - 99 mg/dL 99 97 CM 101 High CM 97 CM 90 CM 99 CM 99 CM Component Ref Range AND Units 10:25 AM (09/06/23) 6 mo ago (03/08/23) 9 mo ago (11/18/22) 1 yr ago (06/29/22) 1 yr ago (12/29/21) 2 yr ago (06/30/21) 2 yr ago (12/30/20) LD 135 - 214 U/L 198 220 High 242 High CM 201 303 High CM 212 246 High Component Ref Range AND Units 10:25 AM 2 mo ago 4 mo ago 5 mo ago 6 mo ago 7 mo ago 8 mo ago Retic % 0.4 - 2.0 % 1.4 1.4 1.6 1.6 1.5 1.2 1.6 Abs Retic 0.018 - 0.100 M/uL 0.062 0.058 0.069 0.069 0.068 0.055 0.071 0 Result Notes Component Ref Range AND Units 10:25 AM (09/06/23) 6 mo ago (03/08/23) 10 mo ago (10/26/22) 1 yr ago (08/25/22) 1 yr ago (06/29/22) 1 yr ago (12/29/21) Magnesium 1.7 - 2.3 mg/dL 1.9 1.8 2.1 2.1 2.1 2.1 Assessment and plan: Ms. Loyd is a 72 yo F with rheumatoid arthritis presenting for LGL follow up. 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 - Previously her ANC has dropped <500, at that time we increased Cyclosporine dose to 125 mg daily. Responded well. On CsA since 2018 PLAN -Currently on CsA 100 mg AM and 125 mg PM (refilled) along with magnesium. Her cell counts are normal. Advised to go down to 100 mg CsA BID. After 1 month, repeat the CBC with diff, if stable then decrease by another 25 mg and continue to wean in similar pattern. - Continue magnesium while on CsA -ANC >500 and no oral lesions. #Rh (more content not included)... [facility] 09-06-2023 History of Present illness Narrative Images from the original note were not included. [facility] DEPARTMENT OF HEMATOLOGY AND MEDICAL ONCOLOGY CLINIC VISIT Chief Complaint: follow up of T-LGL HPI: This is a pleasant 72-year-old female with past medical history of rheumatoid arthritis who was on methotrexate and Plaquenil. She was on methotrexate from 2013 to July 2017 and plaquenil from [id number]. Before that she was on sulfasalazine and when necessary steroids. Patient stated that she was initially diagnosed with rheumatoid arthritis in 1991 and had multiple therapies are mentioned below. She was doing well on methotrexate with her symptoms well controlled. In summer of 2016 it was noticed that her WBC and ANC were trending down. This prompted a follow-up with the office machines wirer. Initially it was thought to be secondary to methotrexate. The medication was stopped. 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 Interval history: Patient presents for routine follow up. Denies any complaints at this visit. BP well controlled on propranolol and amlodipine. Review of systems: 10-points systems reviewed and were negative except for what was mentioned in the history of present illness. Examination; Vital signs: 09/06/23 1134 BP: 139/68 Pulse: 68 Resp: 18 Temp: 36.5 C (97.7 F) TempSrc: Temporal SpO2: 97% (RA) Weight: 89.5 kg (197 lb 5 oz) General appearance: Well appearing, alert, in no acute distress Skin: no rash Lungs: breathing comfortably on room air. Lungs clear to auscultation Heart: RRR without murmur, or gallop. Abdomen: Abdomen soft, non-tender. No masses, organomegaly Extremities: No edema Musculoskeletal: Normal range of motion. No joint swelling, or deformity. Neuro: non focal LABS: Component Ref Range & Units 10:25 AM 2 mo ago 4 mo ago 5 mo ago 6 mo ago 7 mo ago 8 mo ago WBC 3.70 - 11.00 k/uL 3.77 3.63 Low 3.23 Low 2.85 Low 2.62 Low 2.85 Low 2.95 Low RBC 3.90 - 5.20 m/uL 4.46 4.30 4.35 4.46 4.48 4.57 4.45 Hemoglobin 11.5 - 15.5 g/dL 12.9 12.8 12.6 12.6 12.7 12.9 12.5 Hematocrit 36.0 - 46.0 % 38.9 37.1 36.8 38.0 38.1 38.5 37.2 MCV 80.0 - 100.0 fL 87.2 86.3 84.6 85.2 85.0 84.2 83.6 MCH 26.0 - 34.0 pg 28.9 29.8 29.0 28.3 28.3 28.2 28.1 MCHC 30.5 - 36.0 g/dL 33.2 34.5 34.2 33.2 33.3 33.5 33.6 RDW-CV 11.5 - 15.0 % 12.8 12.8 12.8 13.2 13.1 13.2 13.3 Platelet Count 150 - 400 k/uL 210 191 181 175 192 178 173 MPV 9.0 - 12.7 fL 9.4 9.1 8.7 Low 9.0 9.1 8.9 Low 8.9 Low Neutrophils % % 53.3 46.5 44.0 40.0 38.6 53.6 38.4 Abs Neut 1.45 - 7.50 k/uL 2.01 1.69 1.42 Low 1.14 Low 1.01 Low 1.53 1.13 Component Ref Range & Units 10:25 AM 2 mo ago 4 mo ago 5 mo ago 6 mo ago 7 mo ago 8 mo ago Protein, Total 6.3 - 8.0 g/dL 7.7 7.3 7.5 7.4 7.3 7.4 7.2 Albumin 3.9 - 4.9 g/dL 4.4 4.4 4.3 4.3 4.2 4.2 4.2 Calcium, Total 8.5 - 10.2 mg/dL 9.5 9.4 9.6 9.9 9.4 9.7 9.6 Bilirubin, Total 0.2 - 1.3 mg/dL 0.7 0.5 0.6 0.6 0.6 0.7 0.6 Alkaline Phosphatase 34 - 123 U/L 89 95 99 79 76 76 76 AST 13 - 35 U/L 19 15 17 17 17 16 18 ALT 7 - 38 U/L 12 12 11 10 11 10 10 Glucose 74 - 99 mg/dL 99 97 CM 101 High CM 97 CM 90 CM 99 CM 99 CM Component Ref Range & Units 10:25 AM (09/06/23) 6 mo ago (03/08/23) 9 mo ago (11/18/22) 1 yr ago (06/29/22) 1 yr ago (12/29/21) 2 yr ago (06/30/21) 2 yr ago (12/30/20) LD 135 - 214 U/L 198 220 High 242 High CM 201 303 High CM 212 246 High Component Ref Range & Units 10:25 AM 2 mo ago 4 mo ago 5 mo ago 6 mo ago 7 mo ago 8 mo ago Retic % 0.4 - 2.0 % 1.4 1.4 1.6 1.6 1.5 1.2 1.6 Abs Retic 0.018 - 0.100 M/uL 0.062 0.058 0.069 0.069 0.068 0.055 0.071 0 Result Notes Component Ref Range & Units 10:25 AM (09/06/23) 6 mo ago (03/08/23) 10 mo ago (10/26/22) 1 yr ago (08/25/22) 1 yr ago (06/29/22) 1 yr ago (12/29/21) Magnesium 1.7 - 2.3 mg/dL 1.9 1.8 2.1 2.1 2.1 2.1 Assessment and plan: Ms. Loyd is a 72 yo F with rheumatoid arthritis presenting for LGL follow up. 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 - Previously her ANC has dropped <500, at that time we increased Cyclosporine dose to 125 mg daily. Responded well. On CsA since 2017 PLAN -Currently on CsA 100 mg AM and 125 mg PM (refilled) along with magnesium. Her cell counts are normal. Advised to go down to 100 mg CsA BID. After 1 month, repeat the CBC with diff, if stable then decrease by another 25 mg and continue to wean in similar pattern. - Continue magnesium while on CsA -ANC >500 and no oral lesions. #Rheumatoid arthritis -On Plaquenil. 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 -On propranolol primarly for BP. -On amlodipine given that it is CsA induced. On Amlodipine 2.5 mg daily, BP well controlled on current regimen. -Pt will continue to monitor BP at home RTC in [address] Flores. Lidia Gamez MD Clinical and Experimental Hematology Fellow Attending Physician Note: Dr. Guero Flores MD, PhD I performed a history and physical examination of the patient and discussed the management with the resident. I reviewed the resident's note and agree with the documented findings and plan of care. I spent at least 30 minutes in the direct care of the patient. I discussed the current status of patient and the likely course of the disease process with treatment plan outlined. All treatment options and their rationales and complications were discussed with the patient. Issues about usual follow up or when to return earlier for poor response or unforseen complications were also discussed. Dr. Guero Flores MD, PhD documented in this encounter [facility] 09-06-2023 Nurse Note Additional intake questions: Has the patient had fever, nausea, vomiting, diarrhea, constipation, fatigue for > 1 week? No Does the patient have a decreased appetite? No Does patient have any new or increased numbness or tingling of extremities? No Is patient interested in fertility information? No Does patient need any prescription refills? No Does patient have an advanced directive in place? documented in this encounter [facility] 03-08-2023 Note HNO ID: [id number] Author: Guero Flores MD, PhD Service: ? Author Type: Physician Type: Progress Notes Filed: 03/13/2023 4:42 PM Note Text: [facility]PART[facility] OF HEMATOLOGY AND MEDICAL ONCOLOGY CLINIC VISIT __ Chief Complaint: follow up of T-LGL HPI: This is a pleasant 72-year-old female with past medical history of rheumatoid arthritis who was on methotrexate and Plaquenil. She was on methotrexate from 2013 to July 2017 and plaquenil from [id number]. Before that she was on sulfasalazine and when necessary steroids. Patient stated that she was initially diagnosed with rheumatoid arthritis in 1991 and had multiple therapies are mentioned below. She was doing well on methotrexate with her symptoms well controlled. In summer it was noticed that her WBC and ANC were trending down. This prompted a follow-up with the office machines wirer. Initially it was thought to be secondary to methotrexate. The medication was stopped. 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 Interval history: Patient presents for routine follow up. Denies any complaints at this visit. BP elevated today but she was recently prescribed amlodipine and has been under a lot of stress due to undergoing multiple procedures for diabetic foot infection. Review of systems: 10-points systems reviewed and were negative except for what was mentioned in the history of present illness. Examination; Vital signs: 03/08/23 1155 BP: 169/71 Pulse: 70 Resp: 18 Temp: 36.3 ?C (97.4 ?F) TempSrc: Oral SpO2: 98% Weight: 89.8 kg (198 lb) General appearance: Well appearing, alert, in no acute distress Skin: no rash Lungs: breathing comfortably on room air. Lungs clear to auscultation Heart: RRR without murmur, or gallop. Abdomen: Abdomen soft, non-tender. No masses, organomegaly Extremities: No edema Musculoskeletal: Normal range of motion. No joint swelling, or deformity. Neuro: non focal LABS: Component Latest Ref Rng AND Units 03/08/2023 WBC 3.70 - 11.00 k/uL 2.62 (L) RBC 3.90 - 5.20 m/uL 4.48 Hemoglobin 11.5 - 15.5 g/dL 12.7 Hematocrit 36.0 - 46.0 % 38.1 MCV 80.0 - 100.0 fL 85.0 MCH 26.0 - 34.0 pg 28.3 MCHC 30.5 - 36.0 g/dL 33.3 RDW-CV 11.5 - 15.0 % 13.1 Platelet Count 150 - 400 k/uL 192 MPV 9.0 - 12.7 fL 9.1 Neut% % 38.6 Abs Neut (ANC) 1.45 - 7.50 k/uL 1.01 (L) Lymph% % 45.4 Abs Lymph 1.00 - 4.00 k/uL 1.19 [place]% % 14.1 Abs [place] <0.87 k/uL 0.37 Eosin% % 1.5 Abs Eosin <0.46 k/uL 0.04 Baso% % 0.4 Abs Baso <0.11 k/uL <0.03 Immature Gran % % 0.0 IMMATURE GRANS (ABS) <0.10 k/uL <0.03 NRBC /100 WBC 0.0 Absolute nRBC <0.01 k/uL <0.01 DTYPE Auto Protein, Total 6.3 - 8.0 g/dL 7.3 Albumin 3.9 - 4.9 g/dL 4.2 Calcium 8.5 - 10.2 mg/dL 9.4 Bilirubin, Total 0.2 - 1.3 mg/dL 0.6 Alkaline Phosphatase 34 - 123 U/L 76 AST 13 - 35 U/L 17 ALT 7 - 38 U/L 11 Glucose 74 - 99 mg/dL 90 BUN 7 - 21 mg/dL 20 Creatinine 0.58 - 0.96 mg/dL 0.93 Sodium 136 - 144 mmol/L 138 Potassium 3.7 - 5.1 mmol/L 4.6 Chloride 97 - 105 mmol/L 104 CO2 22 - 30 mmol/L 26 Anion Gap 9 - 18 mmol/L 8 (L) eGFR >=60 mL/min/1.73mA? 65 Retic % 0.4 - 2.0 % 1.5 Abs Retic 0.018 - 0.100 M/uL 0.068 LD 135 - 214 U/L 220 (H) Magnesium 1.7 - 2.3 mg/dL 1.8 Assessment and plan: Ms. Loyd is a 72 yo F with rheumatoid arthritis presenting for LGL follow up. 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 - Previously her ANC has dropped <500, at that time we increased Cyclosporine dose to 125 mg daily. Responded well. On CsA since 2018 PLAN -C/w CsA 100 mg AM and 125 mg PM (refilled) along with magnesium -ANC >500 and no oral lesions, pt is advised to discontinue ciprofloxacin at this time #Rheumatoid arthritis -On Plaquenil. 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 On propranolol primarly for BP. -Pt was started on amlodipine given that it is CsA induced. On Amlodipine 2.5 mg daily, however systolic BP is 171 today and advised to increase to 5 mg daily or 5 mg twice daily if persistently elevated -Pt will continue to monitor BP at home RTC in [address] Flores. Flaquita Hernandez MD Clinical and Experimental Hematology Fellow Attending Physician Note: Dr. Guero Flores MD, PhD I performed a history and physical examination of the patient and discussed the management with the resident. I reviewed the resident's note and agree with the documented findings and plan of care. I spent at least 30 minutes in the direct care of the patient. I discussed the current status of patient and the likely c (more content not included)... [facility] 03-08-2023 Nurse Note Additional intake questions: Has the patient had fever, nausea, vomiting, diarrhea, constipation, fatigue for > 1 week? Yes, fatigue Does the patient have a decreased appetite? No Does patient have any new or increased numbness or tingling of extremities? No Is patient interested in fertility information? NA Does patient need any prescription refills? No Does patient have an advanced directive in place? Yes, copies are in Epic documented in this encounter [facility] 03-08-2023 History of Present illness Narrative Images from the original note were not included. [facility] DEPARTMENT OF HEMATOLOGY AND MEDICAL ONCOLOGY CLINIC VISIT Chief Complaint: follow up of T-LGL HPI: This is a pleasant 72-year-old female with past medical history of rheumatoid arthritis who was on methotrexate and Plaquenil. She was on methotrexate from 2013 to July 2017 and plaquenil from [id number]. Before that she was on sulfasalazine and when necessary steroids. Patient stated that she was initially diagnosed with rheumatoid arthritis in 1991 and had multiple therapies are mentioned below. She was doing well on methotrexate with her symptoms well controlled. In summer it was noticed that her WBC and ANC were trending down. This prompted a follow-up with the office machines wirer. Initially it was thought to be secondary to methotrexate. The medication was stopped. 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 Interval history: Patient presents for routine follow up. Denies any complaints at this visit. BP elevated today but she was recently prescribed amlodipine and has been under a lot of stress due to undergoing multiple procedures for diabetic foot infection. Review of systems: 10-points systems reviewed and were negative except for what was mentioned in the history of present illness. Examination; Vital signs: 03/08/23 1155 BP: 169/71 Pulse: 70 Resp: 18 Temp: 36.3 C (97.4 F) TempSrc: Oral SpO2: 98% Weight: 89.8 kg (198 lb) General appearance: Well appearing, alert, in no acute distress Skin: no rash Lungs: breathing comfortably on room air. Lungs clear to auscultation Heart: RRR without murmur, or gallop. Abdomen: Abdomen soft, non-tender. No masses, organomegaly Extremities: No edema Musculoskeletal: Normal range of motion. No joint swelling, or deformity. Neuro: non focal LABS: Component Latest Ref Rng & Units 03/08/2023 WBC 3.70 - 11.00 k/uL 2.62 (L) RBC 3.90 - 5.20 m/uL 4.48 Hemoglobin 11.5 - 15.5 g/dL 12.7 Hematocrit 36.0 - 46.0 % 38.1 MCV 80.0 - 100.0 fL 85.0 MCH 26.0 - 34.0 pg 28.3 MCHC 30.5 - 36.0 g/dL 33.3 RDW-CV 11.5 - 15.0 % 13.1 Platelet Count 150 - 400 k/uL 192 MPV 9.0 - 12.7 fL 9.1 Neut% % 38.6 Abs Neut (ANC) 1.45 - 7.50 k/uL 1.01 (L) Lymph% % 45.4 Abs Lymph 1.00 - 4.00 k/uL 1.19 Mariposa% % 14.1 Abs [place]osa <0.87 k/uL 0.37 Eosin% % 1.5 Abs Eosin <0.46 k/uL 0.04 Baso% % 0.4 Abs Baso <0.11 k/uL <0.03 Immature Gran % % 0.0 IMMATURE GRANS (ABS) <0.10 k/uL <0.03 NRBC /100 WBC 0.0 Absolute nRBC <0.01 k/uL <0.01 DTYPE Auto Protein, Total 6.3 - 8.0 g/dL 7.3 Albumin 3.9 - 4.9 g/dL 4.2 Calcium 8.5 - 10.2 mg/dL 9.4 Bilirubin, Total 0.2 - 1.3 mg/dL 0.6 Alkaline Phosphatase 34 - 123 U/L 76 AST 13 - 35 U/L 17 ALT 7 - 38 U/L 11 Glucose 74 - 99 mg/dL 90 BUN 7 - 21 mg/dL 20 Creatinine 0.58 - 0.96 mg/dL 0.93 Sodium 136 - 144 mmol/L 138 Potassium 3.7 - 5.1 mmol/L 4.6 Chloride 97 - 105 mmol/L 104 CO2 22 - 30 mmol/L 26 Anion Gap 9 - 18 mmol/L 8 (L) eGFR >=60 mL/min/1.73m 65 Retic % 0.4 - 2.0 % 1.5 Abs Retic 0.018 - 0.100 M/uL 0.068 LD 135 - 214 U/L 220 (H) Magnesium 1.7 - 2.3 mg/dL 1.8 Assessment and plan: Ms. Loyd is a 72 yo F with rheumatoid arthritis presenting for LGL follow up. 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 - Previously her ANC has dropped <500, at that time we increased Cyclosporine dose to 125 mg daily. Responded well. On CsA since 2018 PLAN -C/w CsA 100 mg AM and 125 mg PM (refilled) along with magnesium -ANC >500 and no oral lesions, pt is advised to discontinue ciprofloxacin at this time #Rheumatoid arthritis -On Plaquenil. 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 On propranolol primarly for BP. -Pt was started on amlodipine given that it is CsA induced. On Amlodipine 2.5 mg daily, however systolic BP is 171 today and advised to increase to 5 mg daily or 5 mg twice daily if persistently elevated -Pt will continue to monitor BP at home RTC in [address] Flores. Flaquita Hernandez MD Clinical and Experimental Hematology Fellow Attending Physician Note: Dr. Guero Flores MD, PhD I performed a history and physical examination of the patient and discussed the management with the resident. I reviewed the resident's note and agree with the documented findings and plan of care. I spent at least 30 minutes in the direct care of the patient. I discussed the current status of patient and the likely course of the disease process with treatment plan outlined. All treatment options and their rationales and complications were discussed with the patient. Issues about usual follow up or when to return earlier for poor response or unforseen complications were also discussed. Dr. Guero Flores MD, PhD documented in this encounter [facility] 11-09-2022 Evaluation note Encounter Date Diagnosis Assessment Notes Nov, Diarrhea (ICD-10 - R19.7) obtain records from [facility] and [facility]. records release signed by patient. follow up after reviewing records. [employer] Other 12-22-2022 Miscellaneous Notes* Telephone Encounter - Radha Caputo RN - 10/27/2022 9:01 AM EST Message to provider ANC 0.37 Are we adjusting cyclosporine? Per providers message yes tell her to go up to 150 am and 125 pm , For ANC 370, will start ciprofloxacin 6-month course prophylaxis. Order for cipro routed to provider for signature/ RN made call back to contact number for patient. Instructed to go up to 150 am and 25 pm. Patient took notes while on phone call and repeated back the new dose. She counted her capsules andstates has enough for 3 weeks since wasn't taking the 25 mg for a while. Instructed her to have CBC with diff/CMP/retic in a month to monitor results. Follow up visit in 4 months expected. Patient expressed understanding and agreeable to plan. Contact phone number provided if needed. documented in this encounter[facility]12-[facility]-2022 History of Present illness Narrative* Guero Flores MD, PhD - 10/26/2022 11:26 AM EST Images from the original note were not included. [facility] DEPARTMENT OF HEMATOLOGY AND MEDICAL ONCOLOGY CLINIC VISIT Date of Service: October 26, 2022 Chief Complaint: follow up. HPI: This is a pleasant 71-year-old female with past medical history of rheumatoid arthritis who was on methotrexate and Plaquenil. She was on methotrexate from 2013 to July 2017 and plaquenil from 4757-1312. Before that she was on sulfasalazine and when necessary steroids. Patient stated that she was initially diagnosed with rheumatoid arthritis in 1991 and had multiple therapies are mentioned below. She was doing well on methotrexate with her symptoms well controlled.In summer it was noticed that her WBC and ANC were trending down. This prompted a follow-upwith the office machines wirer. Initially it was thought to be secondary to methotrexate. The medication wasstopped. Along with this the patient had a bone marrow biopsy as well as a flow cytometry done withhigh suspicion for LGL. Interval history: June 29, 2022 Stefan is here for follow-up. She reports doing well, and is currently on 125 mg cyclosporine daily. She was interested in reducing the dose if possible. She denied any SOB, nausea, vomiting, chest pain or diarrhea. October 26, 2022 Stefan is doing well today, currently still on cyclosporine 125 mg daily. Her BP at today's visit wasslightly elevated to 146/72, but she reported no headaches, chest pain or vision changes. She states normally at PCP ranges in SBP of 120s. Labs were pending during visit but will follow-up regardingcyclosporine dose decrease dependent on response. Review of systems: 10-points systems reviewed and were negative except for what was mentioned in the history of present illness. Examination; Vital signs: 10/26/22 1125 BP: 146/72 Pulse: 69 Resp: 18 Temp: 36.8 C (98.3 F) TempSrc: Oral SpO2: 100% (RA) Weight: 92.8 kg (204 lb 9.6 oz) General appearance: Well appearing, alert, in no acute distress Skin: no rash Head: Normocephalic, atraumatic Eyes: Anicteric sclera. Extraocular movements are intact. Neck: Supple, normal range of motion, no adenopathy Lungs: breathing comfortably on room air. Lungs clear to auscultation Heart: RRR without murmur, or gallop. Abdomen: Abdomen soft, non-tender. No masses, organomegaly Extremities: No edema Musculoskeletal: Normal range of motion. No joint swelling, or deformity. Neuro: non focal LABS: Latest Reference Range & Units 06/29/22 10:34 07/22/22 08:57 08/25/22 08:33 10/26/22 10:29 Sodium 136 - 144 mmol/L 138 140 136 138 Potassium 3.7 - 5.1 mmol/L 4.6 4.5 4.4 4.5 Chloride 97 - 105 mmol/L 103 104 102 104 CO2 22 - 30 mmol/L 25 28 27 27 BUN 7 - 21 mg/dL 18 17 17 16 Creatinine 0.58 - 0.96 mg/dL 1.03 (H) 0.89 0.90 0.96 Glucose 74 - 99 mg/dL 93 101 (H) 96 94 Protein, Total 6.3 - 8.0 g/dL 7.3 6.9 7.2 7.1 Calcium 8.5 - 10.2 mg/dL 9.3 9.2 8.9 9.2 Magnesium 1.7 - 2.3 mg/dL 2.1 2.1 2.1 Albumin 3.9 - 4.9 g/dL 4.3 4.2 4.1 3.9 Bilirubin, Total 0.2 - 1.3 mg/dL 0.6 0.4 0.5 0.5 Alkaline Phosphatase 34 - 123 U/L 81 76 75 71 ALT 7 - 38 U/L 14 11 10 13 AST 13 - 35 U/L 19 16 16 17 Anion Gap 9 - 18 mmol/L 10 8 (L) 7 (L) 7 (L) LD 135 - 214 U/L 201 eGFR >=60 mL/min/1.73m 58 (L) 69 68 63 Vitamin B12 211 - 946 pg/mL Folate >4.7 ng/mL WBC 3.70 - 11.00 k/uL 2.44 (L) 2.05 (L) 2.51 (L) 1.76 (L) (P) RBC 3.90 - 5.20 m/uL 4.50 4.39 4.49 4.42 (P) Hemoglobin 11.5 - 15.5 g/dL 13.0 12.5 12.8 12.5 (P) Hematocrit 36.0 - 46.0 % 38.8 37.6 38.4 37.1 (P) Platelet Count 150 - 400 k/uL 168 163 160 145 (L) (P) MCV 80.0 - 100.0 fL 86.2 85.6 85.5 83.9 (P) MCH 26.0 - 34.0 pg 28.9 28.5 28.5 28.3 (P) MCHC 30.5 - 36.0 g/dL 33.5 33.2 33.3 33.7 (P) MPV 9.0 - 12.7 fL 9.0 9.1 8.9 (L) 8.8 (L) (P) RDW-CV 11.5 - 15.0 % 12.7 13.0 13.4 13.5 (P) Retic % 0.4 - 2.0 % 1.6 1.7 1.9 1.7 Abs Retic 0.018 - 0.100 M/uL 0.071 0.072 0.086 0.075 DTYPE Auto Auto Auto Neut% % 37.3 23.9 27.1 Abs Neut (ANC) 1.45 - 7.50 k/uL 0.91 (L) 0.49 (L) 0.68 (L) ANC(includeSEG+BAND) k/uL Lymph% % 44.3 48.3 51.8 Abs Lymph 1.00 - 4.00 k/uL 1.08 0.99 (L) 1.30 Mariposa% % 16.0 22.4 18.7 Abs [place] <0.87 k/uL 0.39 0.46 0.47 Eosin% % 1.6 4.4 1.6 Abs Eosin <0.46 k/uL 0.04 0.09 0.04 Baso% % 0.8 1.0 0.8 Abs Baso <0.11 k/uL <0.03 <0.03 <0.03 Immature Gran % % 0.0 0.0 0.0 IMMATURE GRANS (ABS) <0.10 k/uL <0.03 <0.03 <0.03 NRBC /100 WBC 0.0 0.0 0.0 Nucleated Reds 0 /100 WBC Absolute nRBC <0.01 k/uL <0.01 <0.01 <0.01 Red Cell Morph Diff Comment (H): Data is abnormally high (L): Data is abnormally low (P): Preliminary CBC with diff: WBC 1.76 10/26/2022 RBC 4.42 10/26/2022 Hemoglobin 12.5 10/26/2022 Hematocrit 37.1 10/26/2022 MCV 83.9 10/26/2022 MCH 28.3 10/26/2022 MCHC 33.7 10/26/2022 RDW-CV 13.5 10/26/2022 Platelet Count 145 10/26/2022 MPV 8.8 10/26/2022 Neut% 21.0 10/26/2022 Lymph% 59.0 10/26/2022 Mariposa% 19.0 10/26/2022 Eosin% 1.7 12/29/2021 Baso% 0.0 10/26/2022 Abs Neut (ANC) 0.37 10/26/2022 Abs Mariposa 0.33 10/26/2022 Abs Eosin 0.02 10/26/2022 Abs Baso 0.00 10/26/2022 Assessment and plan: Ms. Loyd is a 71 yo F with rheumatoid arthritis presenting for LGL. 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 - Previously her ANC has dropped <500, at that time we increased Cyclosporine dose to 125 mg daily. Responded well. On CsA since 2018 - another possibility if ANC does not improve is that we retry MTX with a lD cyclosporine and stop plaquenyl - No evidence of recent infection or oral lesions 1250 mg and 150 pm with magnesium supplement - For ANC 370, will start ciprofloxacin monitor CBC weekly #Rheumatoid arthritis -On Plaquenil. 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 On propranolol primarly for BP. - To discuss with PCP ACEi RTC in [address] Flores. Cruzito Summers MD Internal Medicine Resident, PGY-1 October 26, 2022 Pager: [phone] documented in this encounterSouth[facility]12-[facility]-2022 Nurse Note* Jessica Saab RN - 10/26/2022 11:23 AM EST Additional intake questions: Has the patient had fever, nausea, vomiting, diarrhea, constipation, fatigue for > 1 week? No Does the patient have a decreased appetite? No Does patient want to see a Social Media Intern? No (yes to any of above refer patient to schedulers for dietitian appointment) ) Does patient have any new or increased numbness or tingling of extremities? No Is patient interested in fertility information? No Does patient need any prescription refills? No Does patient have an advanced directive in place? No, Patient referred to Resource Center documented in this encounter[facility]10-[facility]-2022 Miscellaneous Notes* Telephone Encounter - Radha Caputo RN - 08/30/2022 12:57 PM EDT Routed message/question to provider and his fellow documented in this encounterSouthwest [facility] Center08-24-2022 History of Present illness Narrative* Guero Flores MD, PhD - 06/29/2022 12:15 PM EDT Images from the original note were not included. [facility] DEPARTMENT OF HEMATOLOGY AND MEDICAL ONCOLOGY CLINIC VISIT Date of Service: June 29, 2022 Chief Complaint: follow up. HPI: This is a pleasant 71-year-old female with past medical history of rheumatoid arthritis who was on methotrexate and Plaquenil. She was on methotrexate from 2013 to July 2017 and plaquenil from 5942-4102. Before that she was on sulfasalazine and when necessary steroids. Patient stated that she was initially diagnosed with rheumatoid arthritis in 1991 and had multiple therapies are mentioned below. She was doing well on methotrexate with her symptoms well controlled.In summer it was noticed that her WBC and ANC were trending down. This prompted a follow-upwith the office machines wirer. Initially it was thought to be secondary to methotrexate. The medication wasstopped. Along with this the patient had a bone marrow biopsy as well as a flow cytometry done withhigh suspicion for LGL. Interval history: June 29, 2022 Stefan is here for follow-up. She reports doing well, and is currently on 125 mg cyclosporine daily. She was interested in reducing the dose if possible. She denied any SOB, nausea, vomiting, chest pain or diarrhea. Review of systems: 10-points systems reviewed and were negative except for what was mentioned in the history of present illness. Examination; Vital signs: 06/29/22 1155 BP: 153/71 Pulse: 66 Resp: 20 Temp: 36.7 C (98 F) TempSrc: Oral SpO2: 98% Weight: 94.8 kg (208 lb 14.4 oz) Height: 167.1 cm (5' 5.79 ) (shoes off) General appearance: Well appearing, alert, in no acute distress Skin: no rash Head: Normocephalic, atraumatic Eyes: Anicteric sclera. Extraocular movements are intact. Neck: Supple, normal range of motion, no adenopathy Lungs: breathing comfortably on room air. Lungs clear to auscultation Heart: RRR without murmur, or gallop. Abdomen: Abdomen soft, non-tender. No masses, organomegaly Extremities: No edema Musculoskeletal: Normal range of motion. No joint swelling, or deformity. Neuro: non focal LABS: Component Latest Ref Rng & Units 06/29/2022 WBC 3.70 - 11.00 k/uL 2.44 (L) RBC 3.90 - 5.20 m/uL 4.50 Hemoglobin 11.5 - 15.5 g/dL 13.0 Hematocrit 36.0 - 46.0 % 38.8 MCV 80.0 - 100.0 fL 86.2 MCH 26.0 - 34.0 pg 28.9 MCHC 30.5 - 36.0 g/dL 33.5 RDW-CV 11.5 - 15.0 % 12.7 Platelet Count 150 - 400 k/uL 168 MPV 9.0 - 12.7 fL 9.0 Neut% % 37.3 Abs Neut (ANC) 1.45 - 7.50 k/uL 0.91 (L) Lymph% % 44.3 Abs Lymph 1.00 - 4.00 k/uL 1.08 Mariposa% % 16.0 Abs [place] <0.87 k/uL 0.39 Eosin% % 1.6 Abs Eosin <0.46 k/uL 0.04 Baso% % 0.8 Abs Baso <0.11 k/uL <0.03 Immature Gran % % 0.0 IMMATURE GRANS (ABS) <0.10 k/uL <0.03 NRBC /100 WBC 0.0 Absolute nRBC <0.01 k/uL <0.01 DTYPE Auto Protein, Total 6.3 - 8.0 g/dL 7.3 Albumin 3.9 - 4.9 g/dL 4.3 Calcium 8.5 - 10.2 mg/dL 9.3 Bilirubin, Total 0.2 - 1.3 mg/dL 0.6 Alkaline Phosphatase 34 - 123 U/L 81 AST 13 - 35 U/L 19 ALT 7 - 38 U/L 14 Glucose 74 - 99 mg/dL 93 BUN 7 - 21 mg/dL 18 Creatinine 0.58 - 0.96 mg/dL 1.03 (H) Sodium 136 - 144 mmol/L 138 Potassium 3.7 - 5.1 mmol/L 4.6 Chloride 97 - 105 mmol/L 103 CO2 22 - 30 mmol/L 25 Anion Gap 9 - 18 mmol/L 10 eGFR >=60 mL/min/1.73m 58 (L) Retic % 0.4 - 2.0 % 1.6 Abs Retic 0.018 - 0.100 M/uL 0.071 LD 135 - 214 U/L 201 Magnesium 1.7 - 2.3 mg/dL 2.1 Assessment and plan: Ms. Loyd is a 71 yo F with rheumatoid arthritis presenting for LGL. 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 - Previously her ANC has dropped <500, at that time we increased Cyclosporine dose to 125 mg daily. Responded well. On CsA since 2018 - Patient's current blood counts are stable. ANC>500 - No evidence of recent infection or oral lesions Plan: - Taper CsA to 100 mg daily and repeat counts in 4 weeks. If counts remain stable for 2 months thenwill taper down by 25 mg -continue magnesium supplement, can skip a day when she has diarrhea. #Rheumatoid arthritis -On Plaquenil. 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 On propranolol. RTC in [address] Flores. Cruzito Summers MD 06/29/2022 Attending Physician Note: Dr. Guero Flores MD, PhD I performed a history and physical examination of the patient and discussed the management with theresident. I reviewed the resident's note and agree with the documented findings and plan of care. Ispent at least 30 minutes in the direct care of the patient. I discussed the current status of patient and the likely course of the disease process with treatment plan outlined. All treatment options and their rationales and complications were discussed with the patient. Issues about usual follow up or when to return earlier for poor response or unforseen complications were also discussed. Dr. Guero Flores MD, PhD documented in this encounterSouth[facility] Center08-24-2022 Nurse Note* Diya Abarca RN - 06/29/2022 11:41 AM EDT Additional intake questions: Has the patient had fever, nausea, vomiting, diarrhea, constipation, fatigue for > 1 week? Yes, constipation (day of last BM 06/29/22), diarrhea ( 0 times in last 24 hours), and fatigue Does the patient have a decreased appetite? No Does patient want to see a Social Media Intern? No (yes to any of above refer patient to schedulers for dietitian appointment) ) Does patient have any new or increased numbness or tingling of extremities? No Is patient interested in fertility information? No Does patient need any prescription refills? No Does patient have an advanced directive in place? 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, without mention of having achieved remission documented in this encounter [facility] note* Diagnosis Large granular lymphocytic leukemia (HCC) Other lymphoid leukemia, without mention of having achieved remission documented in this encounter [facility] note* 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, without mention of having achieved remission [facility] [place] [facility]* 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, without mention of having achieved remission documented in this encounter [facility] note* 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, without mention of having achieved remission Other neutropenia (HCC) Other neutropenia Thrombocytopenia (HCC) Thrombocytopenia, unspecified documented in this encounter [facility] general Narrative - Reported* Type Description Date Medical History RA Medical History HYPOTHYROID Medical History HIGH BLOOD PRESSURE Medical History LARGE GRANULAR LYMPHOCYTIC LEUKE FOZIA Medical History HISTORY OF ENDOMETRIAL CANCER Medical History NEUTROPENIA & THROMBOCYTOPENIA Medical History HIATAL HERNIA Medical History GASTRITIS Medical History ischemic stroke-10/30/2016 Surgical History CHOLECYSTECTOMY 2018 Hospitalization History NONE [employer] Other Summary Purpose Family History No Family History Records FoundNo Family History Records Found Advance Directives No Advanced Directives Records FoundNo Advanced Directives Records Found Additional Source Comments Goals (unrecognized section and content) Goals may be documented in a n alternate sectionNo Information Source Comments (unrecognize d section and content) In the event this informatio n is protected by the Federal Confidentiality of Alcohol and Drug Abuse Patient Records regulations: The Federal rules restrict any use of the information to criminally investigate or prosecute any alcohol or drug abuse patient.[facility] CenterIn the event this information is protected by the Federal Confidentiality of Alcohol and Drug Abuse Patient Records regulations: The Federal rules restrict any use of the information to criminally investigate or prosecute any alcohol or drug abuse patient.[facility] CenterIn the event this information is protected by the Federal Confidentiality of Alcohol and Drug Abuse Patient Records regulations: The Federal rules restrict any use of the information to criminally investigate or prosecute any alcohol or drug abuse patient.[facility] CenterIn the event this information is protected by the Federal Confidentiality of Alcohol and Drug Abuse Patient Records regulations: The Federal rules restrict any use of the information to criminally investigate or prosecute any alcohol or drug abuse patient.[facility] CenterIn the event this information is protected by the Federal Confidentiality of Alcohol and Drug Abuse Patient Records regulations: The Federal rules restrict any use of the information to criminally investigate or prosecute any alcohol or drug abuse patient.[facility] CenterIn the event this information is protected by the Federal Confidentiality of Alcohol and Drug Abuse Patient Records regulations: The Federal rules restrict any use of the information to criminally investigate or prosecute any alcohol or drug abuse patient.[facility] CenterIn the event this information is protected by the Federal Confidentiality of Alcohol and Drug Abuse Patient Records regulations: The Federal rules restrict any use of the information to criminally investigate or prosecute any alcohol or drug abuse patient.[facility] Reason for Visit (unrecogniz ed section and content) Reason Comments Established Patient Reason Onset Date Comments Refill Request 07/04/2022 Reason Comments Celery Stripper - Other Results Care Teams (unrecognized sec tion and content) Can Reforming Machine Operator Relationship Specialty Start Date End Date Juno Mcfadden II [address] [facility] [address] [place] [address] PCP - General Internal Medicine 08/21/17 [place] [id number] [place], [place] [id number] Hematology/Oncology 06/27/22 Radha Caputo, RN Specialty Celery Stripper 06/27/22 Can Reforming Machine Operator Relationship Specialty Start Date End Date Juno Mcfadden Michelle II [address] [place] [address] PCP - General Internal Medicine 08/21/17 [place] [address] [place] [address] Hematology/Oncology 06/27/22 Radha Caputo, RN Specialty Celery Stripper 06/27/22 Can Reforming Machine Operator Relationship Specialty Start Date End Date Bogdan Juno Michelle II [address] [facility] [address] [place] [address] PCP - General Internal Medicine 08/21/17 [place] [address] [place] [address] Hematology/Oncology 06/27/22 Radha Caputo, RN Specialty Celery Stripper 06/27/22 Can Reforming Machine Operator Relationship Specialty Start Date End Date Juno Mcfadden Michelle II [address] [facility] [address] [place] [address] PCP - General Internal Medicine 08/21/17 [place] [address] [place] [address] Hematology/Oncology 06/27/22 Radha Caputo, RN Specialty Celery Stripper 06/27/22 Can Reforming Machine Operator Relationship Specialty Start Date End Date Clifton Mcfaddensabrina Martinez II [address] [facility] [address] [place] [address] PCP - General Internal Medicine 08/21/17 [place] [address] [place] [address] Hematology/Oncology 06/27/22 Radha Caputo RN Specialty Celery Stripper 06/27/22 Can Reforming Machine Operator Relationship Specialty Start Date End Date Juno Mcfadden II [address] [facility] [address] [place] [address] PCP - General Internal Medicine 08/21/17 [place] [address] [place] [address] Hematology/Oncology 06/27/22 Radha Caputo RN Specialty Celery Stripper 06/27/22 Can Reforming Machine Operator Relationship Specialty Start Date End Date Juno Mcfadden II, MD [address] [facility] [address] [place] [address] PCP - General Internal Medicine 08/21/17 [place] [address] [place] [address] Hematology/Oncology 06/27/22 Lidia Gamez MD [address] [place], [place] [id number] Fellow Hematology/Oncology 05/31/23 Jessica Lazo, OPHELIA [employer] Hematology/Oncology 05/31/23 INFORMATION SOURCE (unrecogn ized section and content) DATE CREATED AUTHOR 12/31/2022 [facility] DATE CREATED AUTHOR 'S ORGANIZ ATION 11/30/2023 [facility] FOR RECORDS PERTAINING TO PATIENTS WHO ARE OR HAVE BEEN ENROLLED IN A CHEMICAL DEPENDENCY/SUBSTANCEABUSE PROGRAM, SOME INFORMATION MAY BE OMITTED. This clinical summary was aggregated from multiple sources. Caution should be exercised in using it in the provision of clinical care. This summary normalizes information from multiple sources, and as a consequence, information in this document may materially change the coding, format and clinical context of patient data. In addition, data may be omitted in some cases. CLINICAL DECISIONS SHOULD BE BASED ON THE PRIMARY CLINICAL RECORDS. [employer] [facility]. provides no warranty or guarantee of the accuracy or completeness of information in this document.
--- NOTE | 2023-12-01 09:10 | MM_ITS ---
Patient Name: CLARITA LOYD MR#: [id number] : 1950 Exam Date: 12/01/2023 Ordering Doctor: DR BHARAT MAX M.D. RADIOLOGY REPORT PROCEDURE: MM TOMOSYNTHESIS SCREENING BI COMPARISON: MG MAMM SCREEN 3D JAVIER CAD, 10/25/2022. MG MAMM SCREEN 3D JAVIER CAD, 09/17/2021. INDICATIONS: Screening Calculator Name NCI Breast Cancer Risk Assessment Tool 5 Year Breast Cancer Risk 2.40% Lifetime Breast Cancer Risk 5.60% Personal Breast Cancer No Personal Ovarian Cancer No Treatments None Family Cancers Brother with skin cancer at age 68; Mother with melanoma cancer at age 80; Grandmother-paternal with breast cancer at age ~60; Father with lung cancer at age 67. LOCATION: [facility] BREAST COMPOSITION: Heterogeneously dense,which may obscure small masses. FINDINGS: DIAGNOSTIC CATEGORY 2--BENIGN FINDING. NO CHANGE FROM COMPARISON. Scattered benign-appearing nodules are present. Scattered benign-appearing calcifications are present. RIGHT BREAST: No significant suspicious finding. LEFT BREAST: No significant suspicious finding. RECOMMENDATIONS: ROUTINE MAMMOGRAM AND CLINICAL EVALUATION IN 12 MONTHS. PLEASE NOTE: A NORMAL MAMMOGRAM DOES NOT EXCLUDE THE POSSIBILITY OF BREAST CANCER. A CLINICALLY SUSPICIOUS PALPABLE LUMP SHOULD BE BIOPSIED. Dictated by: Tal Polanco MD on 12/01/2023 at 12:39 Approved by: Tal Polanco MD on 12/01/2023 at 12:41
== END 2023-12-01 08:43 | disposition home or self-care (01) ==
LOC: MAMMO 08:43
PROVIDERS: PCP Internal Medicine; Visit Provider Internal Medicine
DX: Z12.31 Encounter for screening mammogram for malignant neoplasm of breast (principal); Z80.3 Family history of malignant neoplasm of breast; Z80.1 Family history of malignant neoplasm of trachea, bronchus and lung; Z80.8 Family history of malignant neoplasm of other organs or systems
CPT/HCPCS: 77063; 77067

== ENCOUNTER 2025-01-20 09:19 | Outpatient (OUT) | payer MEDICARE, OTHER, SELFPAY ==
--- NOTE | 2025-01-20 09:22 | MM_ITS ---
Patient Name: CLARITA LOYD MR#: [id number] : 1950 Exam Date: 01/20/2025 Ordering Doctor: DR. SUBHA SAAVEDRA D.O. RADIOLOGY REPORT PROCEDURE: MM TOMOSYNTHESIS SCREENING BI COMPARISON: MM TOMOSYNTHESIS SCREENING BI, 12/01/2023. MG MAMM SCREEN 3D JAVIER CAD, 10/25/2022. MG MAMM SCREEN 3D JAVIER CAD, 09/17/2021. MG MAMM JAVIER SCRN W CAD DIG, 09/04/2013. INDICATIONS: Screening Calculator Name NCI Breast Cancer Risk Assessment Tool 5 Year Breast Cancer Risk 2.40% Lifetime Breast Cancer Risk 5.30% Personal Breast Cancer No Personal Ovarian Cancer No Treatments None Family Cancers Brother with skin cancer at age 68; Mother with melanoma cancer at age 80; Grandmother-paternal with breast cancer at age ~60; Father with lung cancer at age 67. LOCATION: [facility] BREAST COMPOSITION: There are scattered areas of fibroglandular density. FINDINGS: DIAGNOSTIC CATEGORY 1--NEGATIVE. RIGHT BREAST: No significant suspicious finding. LEFT BREAST: No significant suspicious finding. RECOMMENDATIONS: ROUTINE MAMMOGRAM AND CLINICAL EVALUATION IN 12 MONTHS. PLEASE NOTE: A NORMAL MAMMOGRAM DOES NOT EXCLUDE THE POSSIBILITY OF BREAST CANCER. A CLINICALLY SUSPICIOUS PALPABLE LUMP SHOULD BE BIOPSIED. Dictated by: Kaushik Merchant DO on 01/20/2025 at 15:45 Approved by: Kaushik Merchant DO on 01/20/2025 at 15:47
== END 2025-01-20 09:20 | disposition home or self-care (01) ==
LOC: MAMMO 09:19
PROVIDERS: PCP Internal Medicine; Visit Provider Obstetrics & Gynecology
DX: Z12.31 Encounter for screening mammogram for malignant neoplasm of breast (principal); Z80.8 Family history of malignant neoplasm of other organs or systems; Z80.3 Family history of malignant neoplasm of breast; Z80.1 Family history of malignant neoplasm of trachea, bronchus and lung; M85.80 Other specified disorders of bone density and structure, unspecified site; Z78.0 Asymptomatic menopausal state
CPT/HCPCS: 77063; 77067; 77080